=== PATIENT | female | born 1955 | race Caucasian/White ===

== ENCOUNTER 2020-10-09 08:21 | Outpatient (REF) | payer MEDICAID, SELFPAY ==
[2020-10-09 10:41] LABS: MANUAL DIFF FLAG SCAN; Mean Corpuscular Volume 65.4 fL (80-98); SCAN SMEAR FLAG 1
[2020-10-09 10:43] LABS: Basophils Absolute Auto 0.1 X10*3/uL (0.0-0.2); Basophils Percent Auto 0.7 % (0-2); Eosinophils Absolute Auto 0.4 X10*3/uL (0.0-0.4); Hematocrit 26.6 % (37-47); Imm Gran Abs Auto 0.03 X10*3/uL (0.00-0.03); Imm Gran Pct Auto 0.4 % (0.0-0.4); Lymphocytes Absolute Auto 1.7 X10*3/uL (1.2-4.9); Lymphocytes Percent Auto 25.1 % (20-40); Mean Corpuscular HGB Conc 24.8 g/dl (31.0-35.0); Mean Corpuscular Hemoglobin 16.2 pg (27.0-33.0); Monocytes Absolute Auto 0.7 X10*3/uL (0.1-1.2); Monocytes Percent Auto 9.6 % (2-11); Neutrophils Percent Auto 58.2 % (45-73); PLT CLUMP 1; Red Blood Count 4.07 X10*6/uL (4.20-5.50); Red Cell Distribution Width 21.5 % (11.0-16.0)
[2020-10-09 10:57] LABS: Alanine Aminotransferase 8 U/L (0-31); Albumin Level 3.3 g/dL (3.5-5.0); Alkaline Phosphatase 103 U/L (39-117); Anion Gap 10 (12-20); Aspartate Amino Transferase 12 U/L (5-31); Bilirubin Total 0.4 mg/dL (0.0-1.0); Blood Urea Nitrogen 15 mg/dL (9-16); Calcium 8.6 mg/dL (8.4-10.2); Carbon Dioxide 26 mmol/L (22-29); Chloride 109 mmol/L (96-108); Estimated Glomerular Filt Rate > 60; Glucose Random 113 mg/dL (60-115); Potassium 4.1 mmol/L (3.3-5.1); Sodium 141 mmol/L (135-145); Total Protein 5.5 g/dL (6.5-8.0)
[2020-10-09 11:01] LABS: Hemoglobin 6.6 g/dl (12.0-16.0); PLT ABN DIST 1
[2020-10-09 11:29] LABS: Platelet Count 348 X10*3/uL (160-400); White Blood Count 6.9 X10*3/uL (4.8-10.8)
[2020-10-09 11:30] LABS: SLIDE REVIEW VERIFIED
[2020-10-09 11:54] LABS: Folate 11.6 ng/mL (> or = 4.0); Vitamin B12 528 pg/mL (200-900)
[2020-10-09 13:54] LABS: Ferritin < 1 ng/mL (10-250)
== END 2020-10-09 08:22 | disposition home or self-care (01) ==
LOC: HO.LAB 08:21
PROVIDERS: PCP Internal Medicine; Visit Provider Internal Medicine
DX: D50.0 Iron deficiency anemia secondary to blood loss (chronic) (principal); J45.909 Unspecified asthma, uncomplicated; K22.0 Achalasia of cardia; R53.83 Other fatigue
CPT/HCPCS: 36415; 80053; 82607; 82728; 82746; 85025

== ENCOUNTER 2020-10-10 10:58 | Outpatient (REF) | payer MEDICAID, SELFPAY ==
[2020-10-10 17:07] LABS: Basophils Absolute Auto 0.1 X10*3/uL (0.0-0.2); Basophils Percent Auto 0.6 % (0-2); MANUAL DIFF FLAG SCAN; Mean Corpuscular Volume 72.3 fL (80-98); Neutrophils Percent Auto 62.2 % (45-73); SCAN SMEAR FLAG 1
[2020-10-10 17:09] LABS: Eosinophils Absolute Auto 0.3 X10*3/uL (0.0-0.4); Hematocrit 34.5 % (37-47); Hemoglobin 9.7 g/dl (12.0-16.0); Imm Gran Abs Auto 0.04 X10*3/uL (0.00-0.03); Imm Gran Pct Auto 0.5 % (0.0-0.4); Lymphocytes Absolute Auto 1.7 X10*3/uL (1.2-4.9); Lymphocytes Percent Auto 21.6 % (20-40); Mean Corpuscular HGB Conc 28.1 g/dl (31.0-35.0); Mean Corpuscular Hemoglobin 20.3 pg (27.0-33.0); Monocytes Absolute Auto 0.9 X10*3/uL (0.1-1.2); Monocytes Percent Auto 11.1 % (2-11); Neutrophils Absolute Auto 4.8 X10*3/uL (2.0-8.3); PLT CLUMP 1; Red Blood Count 4.77 X10*6/uL (4.20-5.50); Red Cell Distribution Width 27.4 % (11.0-16.0)
[2020-10-10 17:44] LABS: PLT ABN DIST 1; Platelet Count 302 X10*3/uL (160-400); White Blood Count 7.8 X10*3/uL (4.8-10.8)
[2020-10-10 17:49] LABS: SLIDE REVIEW VERIFIED
== END 2020-10-10 10:59 | disposition home or self-care (01) ==
LOC: HO.MDS 10:58
PROVIDERS: PCP Internal Medicine; Visit Provider Internal Medicine
DX: D50.0 Iron deficiency anemia secondary to blood loss (chronic) (principal)
CPT/HCPCS: 36415; 36430; 85025; 86850; 86900; 86901; 86923; P9016

== ENCOUNTER 2020-11-18 08:17 | Outpatient (REF) | payer MEDICAID, SELFPAY ==
[2020-11-18 09:15] LABS: MANUAL DIFF FLAG NO
[2020-11-18 09:23] LABS: Basophils Percent Auto 0.6 % (0-2); Eosinophils Absolute Auto 0.3 X10*3/uL (0.0-0.4); Eosinophils Percent Auto 4.9 % (0-4); Hematocrit 36.1 % (37-47); Hemoglobin 10.6 g/dl (12.0-16.0); Imm Gran Abs Auto 0.01 X10*3/uL (0.00-0.03); Imm Gran Pct Auto 0.2 % (0.0-0.4); Lymphocytes Absolute Auto 1.5 X10*3/uL (1.2-4.9); Lymphocytes Percent Auto 23.1 % (20-40); Mean Corpuscular HGB Conc 29.4 g/dl (31.0-35.0); Mean Corpuscular Hemoglobin 22.7 pg (27.0-33.0); Mean Corpuscular Volume 77.5 fL (80-98); Monocytes Absolute Auto 0.8 X10*3/uL (0.1-1.2); Monocytes Percent Auto 11.4 % (2-11); Neutrophils Absolute Auto 3.9 X10*3/uL (2.0-8.3); Neutrophils Percent Auto 59.8 % (45-73); Platelet Count 261 X10*3/uL (160-400); Red Blood Count 4.66 X10*6/uL (4.20-5.50); Red Cell Distribution Width 28.3 % (11.0-16.0); White Blood Count 6.6 X10*3/uL (4.8-10.8)
== END 2020-11-18 08:18 | disposition home or self-care (01) ==
LOC: HO.LAB 08:17
PROVIDERS: PCP Internal Medicine; Visit Provider Internal Medicine
DX: K22.10 Ulcer of esophagus without bleeding (principal); D50.0 Iron deficiency anemia secondary to blood loss (chronic)
CPT/HCPCS: 36415; 85025

== ENCOUNTER 2020-11-20 07:07 | Day surgery (SDC) | payer MEDICAID, SELFPAY ==
--- NOTE | 2020-11-19 10:34 | P.CONAN_ITS ---
Documented by User: Glendy Rodriguez 11/19/20 10:35 HPI - Anesthesia Eval Consult details Narrative: 65yo F for Upper Endoscopy [facility] Past Medical History Medical History Achalasia Anemia Asthma History of blood transfusion Hx of renal calculi Surgical History Surgical History History of esophageal surgery History of esophagogastroduodenoscopy (EGD) History of hand surgery Hx of cholecystectomy Hx of colonoscopy Social History Social History Patient Tobacco Use Status: Never used Tobacco Use of substances other than those prescribed or required for medical reasons: No Are you DNR?: No Advance Directives: No Advance Directives Information Provided: Yes Recently lost weight without trying: No Nutrition Risks: No Nutritional Risk Patient : No Meds Allergies Allergy/AdvReac Type Severity Reaction Status Date / Time sunflower seed Allergy Severe ANAPHYLAXIS Verified 11/20/20 08:36 [SUNFLOWER SEED] Home Medications Medication Instructions Recorded Confirmed Last Taken Type albuterol sulfate 2 puff INHALATION QID PRN 11/13/20 11/13/20 Unknown History albuterol sulfate [ProAir HFA] 2 puff INHALATION QID 11/13/20 11/13/20 Unknown History ferrous fumarate [Ferrocite] 1 tab PO DAILY 11/13/20 11/13/20 Unknown History fluticasone propionate [Flovent 1 puff INHALATION BID 11/13/20 11/13/20 Unknown History HFA] ibuprofen 1 tab PO Q8H 11/13/20 11/13/20 Unknown History omeprazole 1 cap PO BID 11/13/20 11/13/20 Unknown History sucralfate [Carafate] 2 PO DAILY 11/13/20 Unknown History Exam Exam Date and Time: November 19, 2020 1034 Pertinent Lab Results Pertinent Lab Results: Laboratory Tests 10/09/20 11/18/20 08:30 08:47 WBC 6.6 Hgb 10.6 L Hct 36.1 L Plt Count 261 Sodium 141 Potassium 4.1 Chloride 109 H Carbon Dioxide 26 BUN 15 Creatinine 0.64 Assessment and Plan Assessment Anesthesia Assessment: Chart Reviewed Documented by User: Shanna Dao 11/20/20 08:40 PMF Past Medical History Medical History Achalasia Anemia Asthma History of blood transfusion Hx of renal calculi Surgical History Surgical History History of esophageal surgery History of esophagogastroduodenoscopy (EGD) History of hand surgery Hx of cholecystectomy Hx of colonoscopy Social History Social History Patient Tobacco Use Status: Never used Tobacco Use of substances other than those prescribed or required for medical reasons: No Are you DNR?: No Advance Directives: No Advance Directives Information Provided: Yes Recently lost weight without trying: No Nutrition Risks: No Nutritional Risk Patient : No Meds Allergies Allergy/AdvReac Type Severity Reaction Status Date / Time sunflower seed Allergy Severe ANAPHYLAXIS Verified 11/20/20 08:36 [SUNFLOWER SEED] Home Medications Medication Instructions Recorded Confirmed Last Taken Type albuterol sulfate 2 puff INHALATION QID PRN 11/13/20 11/13/20 Unknown History albuterol sulfate [ProAir HFA] 2 puff INHALATION QID 11/13/20 11/13/20 Unknown History ferrous fumarate [Ferrocite] 1 tab PO DAILY 11/13/20 11/13/20 Unknown History fluticasone propionate [Flovent 1 puff INHALATION BID 11/13/20 11/13/20 Unknown History HFA] ibuprofen 1 tab PO Q8H 11/13/20 11/13/20 Unknown History omeprazole 1 cap PO BID 11/13/20 11/13/20 Unknown History sucralfate [Carafate] 2 PO DAILY 11/13/20 Unknown History Exam Airway Mallampati Class: II (Missing top central teeth) TM Dist: >3cm Neck ROM: Full Loose/Missing/Broken Teeth: Yes and Upper (B = Broken; M = Missing; L = Loose; C = Cap) Heart: RRR Lungs: CTA Assessment and Plan Assessment Anesthesia Assessment: Anesthesia Plan Discussed and Chart Reviewed Final Anesthetic Review NPO: Yes ASA Class: II Final Preanesthetic Review: Meds/Allgs Chart Reviewed, Consent Obtained/Reviewed and Anes Risks/Benef Reviewed Patient Risk: Low Procedure Risk: Intermediate Anesthetic Plan Anesthetic Plan: MAC: Disposition: Standard PACU
[2020-11-20 07:27] VITALS: BMI 22.6
[2020-11-20 07:48] VITALS: BP 140/68; PULSE 53; RESP 16; TEMP 36.4; O2SAT 96
--- NOTE | 2020-11-20 08:17 | ECG_ITS ---
Test Reason : ARRHYTHMIA Blood Pressure : / mmHG Vent. Rate : 051 BPM Atrial Rate : 051 BPM P-R Int : 180 ms QRS Dur : 086 ms QT Int : 466 ms P-R-T Axes : 060 -03 036 degrees QTc Int : 429 ms Sinus bradycardia with occasional Premature ventricular complexes Otherwise normal ECG No previous ECGs available Referred By: Shanna Dao Electronically Signed By:JULITA KUO MD
--- NOTE | 2020-11-20 08:35 | PC.NURSE ---
EKG PERFORMED. ASYMPTOMATIC. ANTI BY BEDSIDE EVALUTING PATIENT. OK TO PROCEED WITH PROCEDURE. COLOR WNL. NONDIAPHORECTIC. DENIES CP. EKG PERFORMED FOR A BASELINE.
[2020-11-20] MEDS: Lactated Ringers 1,000 ML 100 ML IVCONT (08:37)
[2020-11-20 09:25] VITALS: BP 134/73; PULSE 58; RESP 18; TEMP 36.1; O2SAT 100
--- NOTE | 2020-11-20 09:33 | P.BOP_ITS ---
Brief Operative Note Date of Service: 11/20/20 Pre-op diagnosis: Achalasia Post-op diagnosis: other (Same, Esophageal stricture) Procedure: EGD with Balloon dilation from 12 to 13.5 to 15mm Surgeon: Adis Chan Anesthesia: MAC Was an Anesthesia Attending used for this Procedure?: No Estimated blood loss (mL): 5.0 Pathology: none sent Condition: stable Disposition: PACU
[2020-11-20 09:40] VITALS: BP 141/78; PULSE 60; RESP 18; O2SAT 98
[2020-11-20 10:06] VITALS: BP 163/74; PULSE 51; RESP 16; O2SAT 98
[2020-11-20 10:41] VITALS: BP 154/71; PULSE 54; RESP 18; O2SAT 99
--- NOTE | 2020-11-20 11:34 | OP_ITS ---
SURGEON: Adis Chan MD INDICATIONS: The patient presents for evaluation of underlying history of achalasia, dysphagia, and anemia. Full consent has been obtained from her for this, including risks of bleeding and perforation. PREOPERATIVE DIAGNOSIS: POSTOPERATIVE DIAGNOSIS: PROCEDURE PERFORMED: Esophagogastroduodenoscopy with balloon dilation. ESTIMATED BLOOD LOSS: COMPLICATIONS: ANESTHESIA: Monitored anesthesia care. ASSISTANTS: SPECIMENS: PREOPERATIVE DIAGNOSES: Achalasia, dysphagia, anemia. POSTOPERATIVE DIAGNOSES: Achalasia, dysphagia, anemia, erosive esophagitis, esophageal stricture, and retention of liquid and some food in the esophagus and proximal stomach. DESCRIPTION OF PROCEDURE: The patient was placed in the left lateral decubitus position. The Olympus video gastroscope was passed in the posterior oropharynx and upper esophagus. The scope was passed to a level of approximately 38 to 39 cm. The entire esophagus was quite dilated with no peristalsis and filled with some thick fluid. There were also some small pieces of solid food. The mucosa was quite friable throughout the esophagus. There was no sign of any specific lesions. The majority of liquid was irrigated and suctioned out of the esophagus as best as possible. The lumen of the esophagogastric junction was very difficult to find. I was finally able to find the lumen into the stomach by using a dilating balloon tip. I was then able to pop the scope into the stomach. The EG junction was quite friable, but there was no mass. I did advance to the pylorus. The duodenum was cannulated to the descending portion. The duodenum including the bulb appeared normal without mass or ulceration. The scope was withdrawn back into the stomach. The gastric antrum and body appeared normal with good peristalsis. The scope was retroflexed visualizing the proximal stomach carefully, which appeared normal, but the visualization was limited due to some retained gastric contents in the very proximal stomach. The scope was then straightened. With insufflation of air, I was able to visualize the gastroesophageal junction and there was no sign of mass, but there was some evidence of a fibrotic stricture with inflammatory changes and friability. I did use a [employer] incremental balloon to dilate the EG junction from 12 mm to 13.5 mm to 15 mm at the recommended pressures for between 30 and 60 seconds each. Post-dilation, it was definitely easier to enter the stomach. There was clear disruption of the stricture. Again, there was no sign of any mass. The scope was withdrawn through the remainder of the esophagus. Again, the esophagus was quite dilated with no peristalsis and some retained liquid, which was suctioned away as best as possible. There were no specific esophageal lesions, but the entire mucosa was quite friable. The scope was then withdrawn from the patient. She tolerated the procedure well and was returned to the recovery area in stable condition. IMPRESSION: 1. Achalasia with dilated and aperistaltic esophagus. 2. Esophagitis. 3. Esophageal stricture, status post balloon dilation. PLAN: The patient will start on a regimen of omeprazole 40 mg b.i.d. and Carafate suspension 1 Gm q.i.d. I did advise her to use these medications regularly and on a compliant basis. She has been instructed to stay on her iron as well. She is being scheduled to see a thoracic surgeon, Dr. Mendieta in [place], for further evaluation. I did advise the patient to be sure to remain compliant with her medications and appointments. A recent CBC did show an improved Hemoglobin of approximately 10. This has all been discussed with the patient and her son in detail today. MD ROXANNE Blake/JANE / [id number] MTDD
== END 2020-11-20 11:21 | disposition home or self-care (01) ==
PROVIDERS: PCP Internal Medicine; Visit Provider Internal Medicine
PROC: 0DJ08ZZ Inspection of Upper Intestinal Tract, Via Natural or Artificial Opening Endoscopic (ICD-10-PCS; CPT 43235; principal; 2020-11-20 08:20)
DX: K22.0 Achalasia of cardia (principal); K22.2 Esophageal obstruction; K20.90 Esophagitis, unspecified without bleeding; D64.9 Anemia, unspecified; J45.909 Unspecified asthma, uncomplicated; Z79.899 Other long term (current) drug therapy
CPT/HCPCS: 43249; 93005; C1726

== ENCOUNTER 2021-02-12 10:10 | Outpatient (REF) | payer MEDICAID, SELFPAY ==
[2021-02-12 10:55] LABS: MANUAL DIFF FLAG NO
[2021-02-12 11:00] LABS: Basophils Percent Auto 0.7 % (0-2); Eosinophils Absolute Auto 0.3 X10*3/uL (0.0-0.4); Eosinophils Percent Auto 5.7 % (0-4); Hematocrit 34.9 % (37-47); Hemoglobin 10.2 g/dl (12.0-16.0); Imm Gran Abs Auto 0.01 X10*3/uL (0.00-0.03); Imm Gran Pct Auto 0.2 % (0.0-0.4); Lymphocytes Absolute Auto 1.2 X10*3/uL (1.2-4.9); Lymphocytes Percent Auto 21.9 % (20-40); Mean Corpuscular HGB Conc 29.2 g/dl (31.0-35.0); Mean Corpuscular Hemoglobin 23.4 pg (27.0-33.0); Mean Platelet Volume 10.8 fL (9.4-12.3); Monocytes Absolute Auto 0.7 X10*3/uL (0.1-1.2); Monocytes Percent Auto 12.6 % (2-11); Neutrophils Absolute Auto 3.3 X10*3/uL (2.0-8.3); Neutrophils Percent Auto 58.9 % (45-73); Platelet Count 291 X10*3/uL (160-400); Red Blood Count 4.36 X10*6/uL (4.20-5.50); Red Cell Distribution Width 16.5 % (11.0-16.0); White Blood Count 5.7 X10*3/uL (4.8-10.8)
[2021-02-12 11:33] LABS: Alanine Aminotransferase 10 U/L (0-31); Albumin Level 3.3 g/dL (3.5-5.0); Alkaline Phosphatase 122 U/L (39-117); Anion Gap 8 (12-20); Aspartate Amino Transferase 14 U/L (5-31); Bilirubin Total 0.3 mg/dL (0.0-1.0); Blood Urea Nitrogen 16 mg/dL (9-16); Calcium 9.4 mg/dL (8.4-10.2); Carbon Dioxide 30 mmol/L (22-29); Chloride 107 mmol/L (96-108); Cholesterol 115 mg/dL; Estimated Glomerular Filt Rate > 60; Glucose Random 95 mg/dL (60-115); HDL Cholesterol 41 mg/dL; LDL Cholesterol Calculated 64 mg/dl; Potassium 4.2 mmol/L (3.3-5.1); Sodium 141 mmol/L (135-145); Total Protein 5.4 g/dL (6.5-8.0); Triglycerides 53 mg/dL
== END 2021-02-12 10:11 | disposition home or self-care (01) ==
LOC: HO.LAB 10:10
PROVIDERS: PCP Internal Medicine; Visit Provider Internal Medicine
DX: D50.8 Other iron deficiency anemias (principal); K22.0 Achalasia of cardia; R11.2 Nausea with vomiting, unspecified
CPT/HCPCS: 36415; 80053; 80061; 85025

== ENCOUNTER 2021-07-27 15:12 | Emergency (ER) | payer MEDICAID, SELFPAY ==
[2021-07-27 15:18] VITALS: BP 159/75; PULSE 89; RESP 20; TEMP 36.3; O2SAT 98; BMI 21.7
--- NOTE | 2021-07-27 17:06 | ED_ITS ---
HPI - General Adult General Chief complaint: Back Pain/Injury Stated complaint: back pain/shoulder pain/arm pain Time Seen by Provider: 07/27/21 15:35 Source: patient Mode of arrival: ambulatory Limitations: no limitations History of Present Illness HPI narrative: Pt with right shoulder pain x 1 week, now radiating to right neck and upper back. worse since last night. no known injury. no other symptoms Related Data Home Medications Medication Instructions Recorded Confirmed albuterol sulfate 90 mcg/actuation 2 puff INHALATION QID PRN 11/13/20 11/13/20 aerosol inhaler albuterol sulfate 90 mcg/actuation 2 puff INHALATION QID 11/13/20 11/13/20 aerosol inhaler (ProAir HFA) ferrous fumarate 324 mg (106 mg 1 tab PO DAILY 11/13/20 11/13/20 iron) tablet (Ferrocite) fluticasone propionate 220 1 puff INHALATION BID 11/13/20 11/13/20 mcg/actuation HFA aerosol inhaler (Flovent HFA) ibuprofen 600 mg tablet 1 tab PO Q8H 11/13/20 11/13/20 omeprazole 20 mg capsule,delayed 1 cap PO BID 11/13/20 11/13/20 release sucralfate 100 mg/mL oral 2 PO DAILY 11/13/20 suspension (Carafate) Previous Rx's Medication Instructions Recorded cyclobenzaprine 10 mg tablet 10 mg PO BEDTIME PRN #14 tab 07/27/21 Allergies Allergy/AdvReac Type Severity Reaction Status Date / Time sunflower seed Allergy Severe ANAPHYLAXIS Verified 11/20/20 08:36 [SUNFLOWER SEED] Review of Systems Review of Systems: Constitutional : No trauma, No Weight loss, No Fever, No Chills, ENT/Mouth : No Hearing loss, No Ear Pain, No Nasal Congestion, No Sinus Pain, No Hoarseness, No sore throat, No Rhinorrhea, No Swallowing Difficulty Cardiovascular : No Chest Pain, No SOB Respiratory : No Cough, No Dyspnea Gastrointestinal : No Nausea, No Vomiting, No Diarrhea, No abdominal Pain,? Musculoskeletal : right sided neck pain and right upper back pain, right shoulder pain, No joint stiffness, No joint swelling Skin : No Skin Lesions, No rash or signs of infection Neuro : No Weakness, No radiation, No Numbness, No Paresthesias, No headache, Denies history of IV drug usage. Psych : No SI/HI/thoughts of self injury Yes all other systems are reviewed and are negative [facility] Past Medical History Attestation statement: The following information was validated with the patient. Medical History Achalasia Anemia Asthma History of blood transfusion Hx of renal calculi Surgical History History of esophageal surgery History of esophagogastroduodenoscopy (EGD) History of hand surgery Hx of cholecystectomy Hx of colonoscopy Social History Social History Patient Tobacco Use Status: Never used Tobacco Advance Directives: No Advance Directives Information Provided: No Patient : No Physical Exam ED Vital Signs: Vital Signs - 24 hr 07/27/21 15:18 Temperature 97.4 F Pulse Rate 89 Respiratory Rate 20 Blood Pressure 159/75 H Pulse Oximetry 98 BMI result Body Mass Index 21.7 vital signs have been reviewed as normal and appeared to be correct.? Blood pressure 159/75.? Heart rate normal.? Respiration rate normal.? Temperature normal.? Oxygen saturation normal. Appearance: Alert. Oriented X3. No acute distress.? Head: Normal external exam. Atraumatic Eyes: EOMI. Conjunctiva and sclera normal. Eyelids normal.?? Neck: mild right paravertebral muscle tenderness, no midline tenderness, Neck supple. Normal ROM. No adenopathy. No meningeal signs. CVS: Normal heart rate and rhythm. Respiratory: No respiratory distress. Painless inspiration. Abdomen: Soft and nontender. No visible injury noted. Back:? tenderness right upper trapezius, No CVA tenderness. Full range of motion noted. Skin: Skin warm and dry.? Normal skin color.? Normal skin turgor. No rashes/lesions/lacerations noted. 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 No discoloration.?Extremities exhibit normal range of motion.? Extremities nontender.? Neuro: Oriented X 3.? No motor deficit.? No sensory deficit.? Reflexes normal.? Patient has a normal steady gait. Discharge Plan Discharge Clinical Impression: Acute torticollis Patient Disposition: Home, Self-Care Additional Instructions: Take muscle relaxer twice a day x 2 days and then once a day as needed. Take ibuprofen or advil once a day as tolerated. warm heat to afftected area. Follow up with PCP if no iprovment in 2 days. return if worse ' Your blood pressure was elevated today please follow up with your primary care provider for recheck. Prescriptions: New cyclobenzaprine 10 mg tablet 10 mg PO BEDTIME PRN (Reason: muscle spasm) Qty: 14 0RF No Action sucralfate [Carafate] 100 mg/mL suspension 2 PO DAILY 0RF omeprazole 20 mg capsule,delayed release(DR/EC) 1 cap PO BID 0RF Flovent HFA 220 mcg/actuation HFA aerosol inhaler 1 puff inhalation BID 0RF ibuprofen 600 mg tablet 1 tab PO Q8H 0RF albuterol sulfate [ProAir HFA] 90 mcg/actuation HFA aerosol inhaler 2 puff inhalation QID 0RF albuterol sulfate 90 mcg/actuation HFA aerosol inhaler 2 puff inhalation QID PRN (Reason: Shortness Of Breath Or Wheezing) 0RF ferrous fumarate [Ferrocite] 324 mg (106 mg iron) tablet 1 tab PO DAILY 0RF Interventions: ED Discharge Assessment Last Done: 07/27/21 17:26 Discharge Date/Time: 07/27/21 17:27
[2021-07-27] MEDS: Ketorolac Tromethamine 15 MG/ML VIAL IM (17:19)
== END 2021-07-27 17:27 | disposition home or self-care (01) ==
PROVIDERS: Emergency Provider Emergency Medicine; PCP Internal Medicine
DX: M43.6 Torticollis (principal); M54.50 Low back pain, unspecified; M54.2 Cervicalgia; M54.6 Pain in thoracic spine; Z79.899 Other long term (current) drug therapy
CPT/HCPCS: 96372; 99283; 99284; J1885

== ENCOUNTER 2021-10-21 09:00 | Outpatient (RCR) | payer MEDICAID, SELFPAY | END 2021-10-21 12:18 | disposition home or self-care (01) | LOC: HO.PTCHIC 09:00 | PROVIDERS: PCP Internal Medicine; Visit Provider Internal Medicine | DX: M54.12 Radiculopathy, cervical region (principal); M25.511 Pain in right shoulder | CPT/HCPCS: 97110; 97140; 97161 ==

== ENCOUNTER 2021-12-12 09:50 | Outpatient (REF) | payer MEDICAID, SELFPAY ==
--- NOTE | ~2021-12-12 | MM_ITS ---
EXAMINATION: MM DIAGNOSTIC DIGITAL BREAST TOMOSYNTHESIS, BILATERAL Targeted left breast ultrasound CLINICAL INFORMATION: Left breast palpable lump The lifetime risk of breast cancer based on the Tyrer-Cuzick Model is 5.9%. COMPARISON: Mammography: October 15, 2011 and studies dating back to July 21, 2010 TECHNIQUE: Digital breast tomosynthesis is performed in both the craniocaudal and mediolateral oblique views along with computer-aided detection (CAD). Synthesized 2D images are generated from the tomosynthesis. Additional left exaggerated craniocaudal view performed. FINDINGS: There are scattered areas of fibroglandular density (ACR BI-RADS breast composition Category b). There is a stable appearance of the right breast. Within the left axilla there is an irregularly marginated 1.6 cm mass with some architectural distortion suspicious for malignancy. Targeted left breast ultrasound at the 12:00 position approximately 12 cm from nipple demonstrated a hypoechoic irregularly marginated mass with internal vascularity and mild distal sound shadowing. No abnormal left axillary lymph nodes were appreciated. Results are discussed with the patient at time of visit. MM/MM tomosynthesis diagnostic BI IMPRESSION: Suspicious left breast mass for which ultrasound-guided core biopsy is recommended. ASSESSMENT: BI-RADS 4: Suspicious (subcategory 4C: High suspicion for malignancy) RECOMMENDATION: Ultrasound guided biopsy. This patient's information was entered into a reminder system with a target due date for their next mammogram. Referring physician's office was not open. Breast Center coordinator will call referring provider's office Wednesday morning.
== END 2021-12-12 09:51 | disposition home or self-care (01) ==
LOC: HO.MAMMO 09:50
PROVIDERS: PCP Internal Medicine; Visit Provider Internal Medicine
DX: N63.25 Unspecified lump in the left breast, overlapping quadrants (principal)
CPT/HCPCS: 76642; 77062; 77066

== ENCOUNTER 2021-12-17 09:31 | Outpatient (REF) | payer MEDICAID, SELFPAY ==
--- NOTE | ~2021-12-17 | US_ITS ---
PROCEDURE: US GUIDED BREAST BIOPSY, LEFT CLINICAL INFORMATION: Solid left breast mass 12 o'clock position suspicious for malignancy. COMPARISON: 12/12/2021 and 10/15/2011. PROCEDURAL DETAILS: The details of the procedure, as well as the risks, benefits, and alternatives to the procedure were explained to the patient in detail and all of her questions were answered, after which written informed consent was obtained. Site and side were confirmed. Prior to the procedure, sonography revealed a hypoechoic rounded mass with internal vascularity and somewhat irregular borders.. A time-out was performed, the lesion intended for biopsy was targeted, and the skin of the left breast was then prepped and draped in the usual sterile fashion. Using sonographic guidance, sterile technique, and 1% lidocaine without epinephrine for local anesthesia, multiple automated core biopsies were obtained through the targeted area with a 14G spring loaded Achieve core biopsy device. There was real-time confirmation of appropriate needle passage. Sampling was documented. At the completion of tissue sampling, a single open coil-shaped metallic clip was deposited at the biopsy site. There was no evidence of immediate complication. SPECIMEN: An appropriate sample was obtained. DIGITAL POST-PROCEDURE MAMMOGRAPHY: Breast density: The tissue contains scattered areas of fibroglandular density. BI-RADS version 5, category B. There are no new mammographic findings demonstrated. The postprocedure 2-view direct digital mammogram reveals satisfactory positioning of the biopsy clip. The mass is not identified on craniocaudal or exaggerated craniocaudal views due to its very deep position in the axilla. There was direct visualization of ultrasound of the clip being deployed within the mass. The patient tolerated the procedure well and, after assuring adequate hemostasis, was discharged in good condition after reviewing postbiopsy breast care instructions. Final pathology results are pending. US/US breast ndl core biopsy LT IMPRESSION: 1. No immediate complication from ultrasound-guided percutaneous biopsy left breast. 2. Ultrasound was used to localize and guide marker clip placement. 3. The 2-view direct digital postprocedure mammogram reveals satisfactory positioning of the biopsy clip. 4. Final pathology results are pending. A separate report with final recommendations will be issued once these results are made available.
--- NOTE | ~2021-12-17 | MM_ITS ---
PROCEDURE: US GUIDED BREAST BIOPSY, LEFT MM DIAGNOSTIC, LEFT CLINICAL INFORMATION: Solid left breast mass 12 o'clock position suspicious for malignancy. COMPARISON: 12/12/2021 and 10/15/2011, PROCEDURAL DETAILS: The details of the procedure, as well as the risks, benefits, and alternatives to the procedure were explained to the patient in detail and all of her questions were answered, after which written informed consent was obtained. Site and side were confirmed. Prior to the procedure, sonography revealed a hypoechoic rounded mass with internal vascularity and somewhat irregular borders. A time-out was performed, the lesion intended for biopsy was targeted, and the skin of the left breast was then prepped and draped in the usual sterile fashion. Using sonographic guidance, sterile technique, and 1% lidocaine without epinephrine for local anesthesia, multiple automated core biopsies were obtained through the targeted area with a 14G spring loaded Achieve core biopsy device. There was real-time confirmation of appropriate needle passage. Sampling was documented. At the completion of tissue sampling, a single open coil-shaped metallic clip was deposited at the biopsy site. There was no evidence of immediate complication. SPECIMEN: An appropriate sample was obtained. DIGITAL POST-PROCEDURE MAMMOGRAPHY: Breast density: The tissue contains scattered areas of fibroglandular density. BI-RADS version 5, category B. There are no new mammographic findings demonstrated. The postprocedure 2-view direct digital mammogram reveals satisfactory positioning of the biopsy clip. The mass is not identified on craniocaudal or exaggerated craniocaudal views due to its very deep position in the axilla. There was direct visualization on ultrasound of the clip being deployed within the mass. The patient tolerated the procedure well and, after assuring adequate hemostasis, was discharged in good condition after reviewing postbiopsy breast care instructions. Final pathology results are pending. MM/MM diagnostic mammo unilat LT IMPRESSION: 1. No immediate complication from ultrasound-guided percutaneous biopsy left breast. 2. Ultrasound was used to localize and guide marker clip placement. 3. The 2-view direct digital postprocedure mammogram reveals satisfactory positioning of the biopsy clip. 4. Final pathology results are pending. A separate report with final recommendations will be issued once these results are made available.
[2021-12-17] MEDS: Lidocaine HCl 1 % 20 ML VIAL 9 ML SUBCUT (11:04)
== END 2021-12-17 09:32 | disposition home or self-care (01) ==
LOC: HO.MAMMO 09:31
PROVIDERS: PCP Internal Medicine; Visit Provider Surgery
DX: N63.25 Unspecified lump in the left breast, overlapping quadrants (principal)
CPT/HCPCS: 19083; 36415; 77062; 77065; 88305; 88342; 88360; 88374; 99202; A4648

== ENCOUNTER → 2021-12-26 14:20 | Outpatient (BNVA) | payer MEDICAID, SELFPAY | PROVIDERS: PCP Internal Medicine; Visit Provider Surgery | DX: N63.20 Unspecified lump in the left breast, unspecified quadrant (principal); C50.919 Malignant neoplasm of unspecified site of unspecified female breast | CPT/HCPCS: 99212 ==

== ENCOUNTER 2021-12-30 12:31 | Outpatient (REF) | payer MEDICAID, SELFPAY ==
[2021-12-30 12:56] LABS: MANUAL DIFF FLAG NO
[2021-12-30 13:32] LABS: Basophils Percent Auto 0.5 % (0-2); Eosinophils Absolute Auto 0.2 X10*3/uL (0.0-0.4); Eosinophils Percent Auto 2.2 % (0-4); Hematocrit 32.4 % (37.0-47.0); Hemoglobin 8.7 g/dl (12.0-16.0); Imm Gran Abs Auto 0.02 X10*3/uL (0.00-0.03); Imm Gran Pct Auto 0.2 % (0.0-0.4); Lymphocytes Absolute Auto 1.5 X10*3/uL (1.2-4.9); Lymphocytes Percent Auto 18.2 % (20-40); Mean Corpuscular HGB Conc 26.9 g/dl (31.0-35.0); Mean Corpuscular Hemoglobin 18.1 pg (27.0-33.0); Mean Corpuscular Volume 67.5 fL (80.0-98.0); Monocytes Absolute Auto 0.9 X10*3/uL (0.1-1.2); Monocytes Percent Auto 11.1 % (2-11); Neutrophils Absolute Auto 5.6 x10*3/uL (2.0-8.3); Neutrophils Percent Auto 67.8 % (45-73); Platelet Count 304 X10*3/uL (160-400); Red Cell Distribution Width 21.6 % (11.0-16.0); White Blood Count 8.3 X10*3/uL (4.8-10.8)
[2021-12-30 13:57] LABS: Alanine Aminotransferase 6 U/L (0-31); Albumin Level 3.4 g/dL (3.5-5.0); Alkaline Phosphatase 126 U/L (39-117); Anion Gap 13 (12-20); Aspartate Amino Transferase 14 U/L (5-31); Bilirubin Total 0.5 mg/dL (0.0-1.0); Blood Urea Nitrogen 19 mg/dL (9-16); Calcium 8.8 mg/dL (8.4-10.2); Carbon Dioxide 26 mmol/L (22-29); Chloride 105 mmol/L (96-108); Estimated Glomerular Filt Rate > 60; Glucose Random 109 mg/dL (60-115); Potassium 4.2 mmol/L (3.3-5.1); Sodium 140 mmol/L (135-145); Total Protein 5.7 g/dL (6.5-8.0)
[2021-12-30 14:22] LABS: Thyroid Stimulating Hormone 0.62 uIU/mL (0.32-4.0)
[2021-12-30 14:34] LABS: Folate 12.7 ng/mL (> or = 4.0); Vitamin B12 584 pg/mL (200-900)
== END 2021-12-30 12:32 | disposition home or self-care (01) ==
LOC: HO.LAB 12:31
PROVIDERS: PCP Internal Medicine; Visit Provider Internal Medicine
DX: C50.919 Malignant neoplasm of unspecified site of unspecified female breast (principal); D50.8 Other iron deficiency anemias; K22.0 Achalasia of cardia
CPT/HCPCS: 36415; 80053; 82607; 82746; 84443; 85025

== ENCOUNTER 2022-10-23 10:00 | Outpatient (RCR) | payer MEDICAID, MEDICARE, SELFPAY ==
--- NOTE | 2022-07-02 11:54 | MHC.PT.EP ---
[facility] [place] [facility] [place] [facility] [place] Office [address] Jonas Carmen [address] [phone] F: [phone] F: [phone] F: [phone] F: [phone] Physical Therapy Plan of Care Date of Evaluation: Date of Surgery: March 18 2022 Diagnosis: Pain in L arm Assessment: Patient is a 66 year old R handed female who presents with s/s consistent with L shoulder pain. She is not working. She currently is waiting to have radiation but needs more shoulder ROM in order to move forward. Patient past medical history includes breast cancer and anemia. Current impairments include pain, posture, ROM, strength, activity tolerance and functional mobility. Functional limitations include decreased ability to reach, lift, carry, sleep, and hold arm above head. Patient is motivated with good rehab potential. Skilled PT will address impairments and functional limitations in order to achieve goals. Frequency and Duration: The patient will be seen 2x/week for 6 weeks Short Term Goals: I with HEP - 2 weeks AAROM flexion and scaption to 120 - 3 weeks Strength ER/IR/abd to 4-/5 - 3 weeks Intermediate Goals: Able to lay supine with arm up overhead to 10 minutes - 5 weeks AROM flexion and scaption to 130 - 5 weeks SPADI 60/130 - 6 weeks Strength 4/5 grossly - 6 weeks Pain with ADLs 3/10 or better - 6 weeks Treatment Plan: Modalities to reduce pain, spasms and effusion. Manual therapy to restore motion and function. Therapeutic exercise to improve strength and flexibility. Neuromuscular re-education for posture and balance. Therapeutic activities to return to functional activities of daily living. Electronically signed by: Ash Norton, PT Please sign and return to therapist. Thank you for your referral.
== END 2022-11-06 09:09 | disposition home or self-care (01) ==
LOC: HO.PTCHIC 10:00
PROVIDERS: PCP Internal Medicine; Visit Provider Internal Medicine
DX: M79.602 Pain in left arm (principal)
CPT/HCPCS: 97110; 97112; 97140; 97162; 97530

== ENCOUNTER 2023-02-09 09:03 | Outpatient (REF) | payer MEDICARE, MEDICAID, SELFPAY ==
[2023-02-09 09:20] LABS: MANUAL DIFF FLAG NO
[2023-02-09 10:09] LABS: Basophils Percent Auto 0.5 % (0-2); Eosinophils Absolute Auto 0.3 X10*3/uL (0.0-0.4); Eosinophils Percent Auto 3.7 % (0-4); Hematocrit 35.8 % (37.0-47.0); Hemoglobin 10.1 g/dl (12.0-16.0); Imm Gran Abs Auto 0.02 X10*3/uL (0.00-0.03); Imm Gran Pct Auto 0.2 % (0.0-0.4); Lymphocytes Percent Auto 12.9 % (20-40); Mean Corpuscular HGB Conc 28.2 g/dl (31.0-35.0); Mean Corpuscular Hemoglobin 21.2 pg (27.0-33.0); Mean Corpuscular Volume 75.1 fL (80.0-98.0); Mean Platelet Volume 10.6 fL (9.4-12.3); Monocytes Absolute Auto 0.8 X10*3/uL (0.1-1.2); Monocytes Percent Auto 9.9 % (2-11); Neutrophils Absolute Auto 5.9 x10*3/uL (2.0-8.3); Neutrophils Percent Auto 72.8 % (45-73); Platelet Count 268 X10*3/uL (160-400); Red Blood Count 4.77 X10*6/uL (4.20-5.50); White Blood Count 8.1 X10*3/uL (4.8-10.8)
[2023-02-09 11:12] LABS: Alanine Aminotransferase 7 U/L (0-31); Albumin Level 3.1 g/dL (3.5-5.0); Alkaline Phosphatase 130 U/L (39-117); Anion Gap 11 (12-20); Aspartate Amino Transferase 18 U/L (5-31); Bilirubin Total 0.4 mg/dL (0.0-1.0); Blood Urea Nitrogen 16 mg/dL (9-16); Calcium 9.2 mg/dL (8.4-10.2); Carbon Dioxide 27 mmol/L (22-29); Chloride 107 mmol/L (96-108); Cholesterol 105 mg/dL (<200); Estimated Glomerular Filt Rate > 60; Glucose Random 85 mg/dL (60-115); HDL Cholesterol 39 mg/dL (>40); LDL Cholesterol Calculated 57 mg/dL (<100); Potassium 4.2 mmol/L (3.3-5.1); Sodium 141 mmol/L (135-145); Total Protein 5.7 g/dL (6.5-8.0); Triglycerides 48 mg/dL (<150)
[2023-02-09 11:31] LABS: Ferritin 9 ng/mL (10-250)
[2023-02-09 11:37] LABS: Vitamin B12 744 pg/mL (200-900)
== END 2023-02-09 09:04 | disposition home or self-care (01) ==
LOC: HO.LAB 09:03
PROVIDERS: PCP Internal Medicine; Visit Provider Internal Medicine
DX: Z00.01 Encounter for general adult medical examination with abnormal findings (principal); C50.919 Malignant neoplasm of unspecified site of unspecified female breast; H61.23 Impacted cerumen, bilateral; N30.00 Acute cystitis without hematuria
CPT/HCPCS: 36415; 80053; 80061; 82607; 82728; 85025

== ENCOUNTER 2024-03-03 12:23 | Outpatient (REF) | payer OTHER, SELFPAY ==
[2024-03-03 12:38] LABS: MANUAL DIFF FLAG NO
[2024-03-03 13:41] LABS: Basophils Percent Auto 0.8 % (0-2); Eosinophils Absolute Auto 0.2 X10*3/uL (0.0-0.4); Eosinophils Percent Auto 4.4 % (0-4); Hematocrit 37.8 % (37.0-47.0); Hemoglobin 11.6 g/dl (12.0-16.0); Imm Gran Abs Auto 0.02 X10*3/uL (0.00-0.03); Imm Gran Pct Auto 0.4 % (0.0-0.4); Lymphocytes Percent Auto 19.4 % (20-40); Mean Corpuscular HGB Conc 30.7 g/dl (31.0-35.0); Mean Corpuscular Hemoglobin 27.2 pg (27.0-33.0); Mean Corpuscular Volume 88.5 fL (80.0-98.0); Mean Platelet Volume 11.2 fL (9.4-12.3); Monocytes Absolute Auto 0.6 X10*3/uL (0.1-1.2); Monocytes Percent Auto 10.6 % (2-11); Neutrophils Absolute Auto 3.4 x10*3/uL (2.0-8.3); Neutrophils Percent Auto 64.4 % (45-73); Platelet Count 265 X10*3/uL (160-400); Red Blood Count 4.27 X10*6/uL (4.20-5.50); Red Cell Distribution Width 15.5 % (11.0-16.0); White Blood Count 5.3 X10*3/uL (4.8-10.8)
[2024-03-03 14:12] LABS: Alanine Aminotransferase 8 U/L (0-31); Albumin Level 3.3 g/dL (3.5-5.0); Alkaline Phosphatase 130 U/L (39-117); Anion Gap 8 (12-20); Aspartate Amino Transferase 15 U/L (5-31); Bilirubin Total 0.3 mg/dL (0.0-1.0); Blood Urea Nitrogen 15 mg/dL (9-16); Calcium 9.7 mg/dL (8.4-10.2); Carbon Dioxide 32 mmol/L (22-29); Chloride 106 mmol/L (96-108); Estimated Glomerular Filt Rate > 60; Glucose Random 98 mg/dL (60-115); Potassium 4.2 mmol/L (3.3-5.1); Sodium 142 mmol/L (135-145); Total Protein 5.7 g/dL (6.5-8.0)
== END 2024-03-03 12:24 | disposition home or self-care (01) ==
LOC: HO.LAB 12:23
PROVIDERS: PCP Internal Medicine; Visit Provider Internal Medicine
DX: D50.8 Other iron deficiency anemias (principal); N30.00 Acute cystitis without hematuria; R30.0 Dysuria
CPT/HCPCS: 36415; 80053; 85025

== ENCOUNTER 2024-04-15 21:42 | Emergency (ER) | payer OTHER, SELFPAY ==
--- NOTE | ~2024-04-15 | CT_ITS ---
EXAMINATION: CT ABDOMEN AND PELVIS WITHOUT CONTRAST CLINICAL INFORMATION: Left flank pain and hematuria. COMPARISON: CT abdomen and pelvis 07/26/2019. TECHNIQUE: Multidetector volumetric imaging was performed from the superior aspect of the liver through the pubic symphysis. Sagittal and coronal reformatted images were obtained on the technologist's workstation. This CT examination was performed using dose optimization techniques as appropriate, variously including the following: *Automated exposure control *Adjustment of mA and/or kV according to patient size (this includes techniques or standardized protocols for targeted exams where dose is matched to indication/reason for exam; i.e. extremities or head) *Use of iterative reconstruction technique DLP: 400 mGy-cm FINDINGS: LUNG BASES: Large portion of the stomach resides with in the right parasagittal inferior aspect of the mediastinum similar findings present 07/26/2019, possibly related to a prior gastric wall through. The stomach is not fully included within the imaged field of view. LIVER, GALLBLADDER, AND BILIARY TREE: The liver is normal in size, shape, and attenuation. No focal hepatic lesion or biliary ductal dilatation is present. Status post cholecystectomy. Prominent ectasia of the common bile duct is present similar findings present 07/26/2019 PANCREAS: Unremarkable. SPLEEN: Unremarkable. ADRENAL GLANDS: Unremarkable. KIDNEYS AND URETERS: Mild left perinephric inflammatory changes. Moderate left hydronephrosis and diffuse left ureterectasis. 2 calculi are present at the left ureteral vesicular junction. The most distal calculus measures 3 mm x 2 mm. The second calculus which is closely approximated but slightly distal to the ureterovesicular junction measures 4 mm x 2 mm. No additional urolithiasis visualized. Multiple right parapelvic benign appearing simple cysts are present and more no additional imaging follow-up in the basis of this examination. Several left parapelvic simple cysts are noted in warrant no additional imaging follow-up in the basis of this examination. No discrete perinephric fluid collections. BLADDER: Mild distention. GASTROINTESTINAL TRACT: Normal appearance of the appendix (series 7 image 28). No free intraperitoneal fluid or gas collections. No intestinal dilatation or mural thickening. ABDOMINAL WALL: Right parasagittal epigastric hernia containing fat without associated inflammatory changes. The neck measures 2.5 cm. The hernia measures 5.5 cm. The hernia is slightly increased in size compared with 07/26/2019. LYMPH NODES: Normal. VASCULAR: Moderate scattered calcific atherosclerosis PELVIC VISCERA: Normal appearance of the uterus. No adnexal lesions. OSSEOUS STRUCTURES: No suspicious skeletal lesions noted. Multilevel intervertebral disc space narrowing and endplate osteophytosis of the lumbar spine. CT/CT abdomen pelvis wo IV con IMPRESSION: 1. Left-sided obstructive uropathy secondary to 2 calculi at the left ureterovesicular junction. The most distal calculus measures 3 mm x 2 mm and the second calculus measures 4 mm x 2 mm. The second calculus is closely approximated but slightly distal to the ureterovesicular junction. Moderate left hydronephrosis and diffuse left ureterectasis. No discrete perinephric fluid collections. No additional urolithiasis. 2. Status post cholecystectomy. 3. A large portion of the proximal stomach resides within the right parasagittal inferior aspect of the mediastinum. This finding is unchanged compared with 07/26/2019 and may related to a prior gastric wall through. 4. Right parasagittal epigastric hernia containing fat without associated inflammatory changes. The hernia is slightly increased in size compared with 07/26/2019. Electronically signed by: Antwan Morales MD 04/16/2024 01:19 AM JANINE
[2024-04-15 21:48] VITALS: BP 155/90; PULSE 68; RESP 16; TEMP 36.7; O2SAT 100; BMI 23.2
[2024-04-15 21:58] LABS: MANUAL DIFF FLAG NO
--- OUTSIDE RECORDS SUMMARY | 2024-04-15 21:58 | XMS_ITS | Continuity of Care Document ---
Author Organization [facility] niurka Address [address] [place] [address] [address] [place] [address]- Care Team Providers Care Water Plant Maintenance Mechanic Name Role Phone Luisa GLASER, Genie Timmons Primary Care Physician [phone] Encounter [facility] [place] [facility] [id number] Date(s): 06/01/22 - 06/08/22 [facility] [address] [place] [address]- Attending Physician: Not on Staff, Attending MD Allergies, Adverse Reactions, Alerts Substance Reaction Severity Status Other Food Allergy 1 Active 1sunflower seeds throat swells up Medications acetaminophen 500 mg oral tablet TAKE 1 TABLET BY MOUTH EVERY 6 HOURS NEEDED FOR PAIN *NO MORE THAN 4 TABS A DAY Start Date: 05/07/22 Status: Ordered anastrozole 1 mg oral tablet 1 tablet = 1 mg, By Mouth, Daily, # 30 tablet, 2 Refills, Maintenance, 03/31/22 12:12:00 EST, Tablet, [id number], Partial fill upon patient request if the prescription is for a schedule II opioid drug., 163, cm, 03/31/22 8:53:00 EST, Height, 6... Start Date: 03/31/22 Status: Ordered Carafate Tablet 1 Gm, By Mouth, 3 times a day before meals and bedtime, Maintenance, 06/22/13 16:22:33 Start Date: 06/22/13 Status: Ordered cyclobenzaprine 10 mg oral tablet PLEASE SEE ATTACHED FOR DETAILED DIRECTIONS Start Date: 05/07/22 Status: Ordered ferrous fumarate 300 mg oral tablet 1 tablet = 300 mg, By Mouth, Daily, # 30 tablet, 0 Refills, Maintenance, 05/09/22 9:00:00 EST, Tablet, Partial fill upon patient request if the prescription is for a schedule II opioid drug. Start Date: 05/09/22 Status: Ordered ibuprofen 600 mg oral tablet TAKE 1 TABLET BY MOUTH EVERY 6 HOURS ALTERNATING WITH TYLENOL Start Date: 05/07/22 Status: Ordered omeprazole 40 mg oral enteric coated capsule 1 capsule = 40 mg, By Mouth, 2 times a day, # 60 capsule, 1 Refills, Maintenance, 05/09/22 9:02:00 EST, Suspension, [facility]/pharmacy #[id number], Partial fill upon patient request if the prescription is for a schedule II opioid drug., 164.3, cm, 04/30/22 11:20:... Start Date: 05/09/22 Status: Ordered ProAir HFA 2 puffs, Inhalation, Every 6 hours, PRN Wheezing/Shortness of Breath, 0 Refills, Maintenance, 03/18/22 7:26:00 EDT, Partial fill upon patient request if the prescription is for a schedule II opioid drug. Start Date: 03/18/22 Status: Ordered Problem List Condition Confirmation Course Effective Dates Status H ealth Status Informant Achalasia Confirmed Active Asthma Confirmed Active Cholecystectomy Confirmed Active Family history of breast cancer Confirmed Active H/O: GI Bleed Confirmed Active History of fundoplication Confirmed Active Cancer of central portion of left female breast Confirmed 11/2021 Active Migraine Confirmed Active Myotomy Confirmed Active Vital Signs Most recent to oldest [Reference Range]: 1 Height 164.3 cm (06/01/22 9:45 AM) Weight 59.09 kg (06/01/22 9:45 AM) Body Mass Index [18.5-24.99 kg/m2] 21.89 kg/m2 (06/01/22 9:45 AM) Weight Obtained Via Standing scale (06/01/22 9:45 AM) Social History Social History Type Response Smoking Status Never smoker entered on: 08/31/13 Sex Patient Care team information Care Team Personnel Name: Genie Moran MD Position: [facility] Outreach Member Role: PCP Address: Address: [address] [place] [address]- Name: Tana Schaefer NP Position: [facility] PCO Associate Professional Member Role: Primary Care Nurse Address: Address: [address] [place] [address]- Name: Karyn Sweeney RN Position: [facility] SN RN Member Role: Primary Care Nurse Name: Marianna Cruz RN Position: S RN Member Role: Primary Care Nurse Care Team Related Persons Name: RACHELLE HERNANDEZ Address: [address] [address] Name: YANCI DELAROSA Address: [place] [address]
--- OUTSIDE RECORDS SUMMARY | 2024-04-15 21:58 | XMS_ITS | Continuity of Care Document ---
Author Organization [facility] niurka Address [address] [place] [address] [address] [place] [address]- Care Team Providers Care Client Sales And Service Officer Name Role Phone Genie Moran MD Primary Care Physician Encounter [facility] [place] Date(s): 03/19/22 - 03/26/22 [facility] [address] [place], [place] [address] Attending Physician: Jorge Staples MD Allergies, Adverse Reactions, Alerts Substance Reaction Severity Status Other Food Allergy 1 Active 1sunflower seeds throat swells up Medications Carafate Tablet 1 Gm, By Mouth, 3 times a day before meals and bedtime, Maintenance, 06/22/13 16:22:33 Start Date: 06/22/13 Status: Ordered ibuprofen 600 mg oral tablet 600 mg, 1, tablet, By Mouth, Every 6 hours, for 14 days, alternate every 6 hrs with tylenol, # 50 tablet, Refills 0, Tot. Refills 0, Acute 04/01/22 9:27:00 EST, 03/18/22 9:27:00 EDT, Route to Pharmacy Electronically, [facility]/pharmacy #[id number], Partial fill u... Start Date: 03/18/22 Stop Date: 04/01/22 Status: Ordered lidocaine 4% topical cream 1 application, Topically, Once, Apply to nipple areola 1 hour before arriving for surgery, cover with saran wrap., # 5 Gm, 0 Refills, Soft Stop, 01/13/22 11:08:00 EDT, Cream, [id number], Partial fill upon patient request if the prescription is... Start Date: 01/13/22 Status: Ordered Omeprazole By Mouth, Daily, 0 Refills, Maintenance, 06/22/13 16:22:40 Start Date: 06/22/13 Status: Ordered oxyCODONE 5 mg oral tablet 5 mg, 1, tablet, By Mouth, Every 6 hours, PRN, for break thru pain, # 20 tablet, Refills 0, Tot. Refills 0, Maintenance, for pain, 03/18/22 9:27:00 EDT, Route to Pharmacy Electronically, [facility]/pharmacy#[id number], Partial fill upon patient request if the pre... Start Date: 03/18/22 Status: Ordered ProAir HFA 2 puffs, Inhalation, Every 6 hours, PRN Wheezing/Shortness of Breath, 0 Refills, Maintenance, 03/18/22 7:26:00 EDT, Partial fill upon patient request if the prescription is for a schedule II opioid drug. Start Date: 03/18/22 Status: Ordered Tylenol Extra Strength 500 mg oral tablet 1 tablet = 500 mg, By Mouth, Every 6 hours, PRN as needed for pain, for 14 days, (no more than 4 tabs a day), # 50 tablet, 0 Refills, Acute 04/01/22 9:27:00 EST, 03/18/22 9:27:00 EDT, Tablet, [facility]/pharmacy #[id number], Partial fill upon patient request if th... Start Date: 03/18/22 Stop Date: 04/01/22 Status: Ordered Zofran ODT 4 mg oral tablet, disintegrating 1 tablet = 4 mg, By Mouth, Every 8 hours, PRN Nausea & Vomiting, # 10 tablet, 0 Refills, Maintenance, 06/22/13 21:46:23, Tablet Start Date: 06/22/13 Status: Ordered Problem List Condition Confirmation Course [...] recent to oldest [Reference Range]: 1 Height 165.0 cm (03/19/22 11:48 AM) Oxygen Saturation [94-100 %] 100 % (03/19/22 11:48 AM) Pulse Rate [55-90 bpm] 60 bpm (03/19/22 11:48 AM) Blood Pressure [90-138/55-84 mm Hg] 142/ 71mm Hg *H* (03/19/22 11:48 AM) Temperature [96.8-100.4 DegF] 99.1 DegF (03/19/22 11:48 AM) Blood pressure sites Arm, right (03/19/22 11:48 AM) Temperature Route Tympanic (03/19/22 11:48 AM) Social History Social History Type Response Smoking Status Never smoker entered on: 08/31/13 Sex Patient Care team information Personnel Name: Genie Moran MD Address: Address: [address] [place] [address] [address] Genie Moran MD [place], [place] [address]
--- OUTSIDE RECORDS SUMMARY | 2024-04-15 21:58 | XMS_ITS | Continuity of Care Document ---
Author Organization [facility] niurka Address [address] [place] [address] [address] [place] [address]- Care Team Providers Care Advanced Quality Engineer Name Role Phone Genie Moran MD Primary Care Physician Encounter [facility] [place] Date(s): 03/30/22 - 04/06/22 [facility] [address] [place] [address]- Attending Physician: Mariama Serrato Allergies, Adverse Reactions, Alerts Substance Reaction Severity Status Other Food Allergy 1 Active 1sunflower seeds throat swells up Medications anastrozole 1 mg oral tablet 1 tablet = 1 mg, By Mouth, Daily, # 30 tablet, 2 Refills, Maintenance, 03/31/22 12:12:00 EST, Tablet, [id number], Partial fill upon patient request if the prescription is for a schedule II opioid drug., 163, cm, 03/31/22 8:53:00 EST, Height, 6... Start Date: 03/31/22 Status: Ordered Carafate Tablet 1 Gm, By Mouth, 3 times a day before meals and bedtime, Maintenance, 06/22/13 16:22:33 Start Date: 06/22/13 Status: Ordered Omeprazole By Mouth, Daily, 0 Refills, Maintenance, 06/22/13 16:22:40 Start Date: 06/22/13 Status: Ordered ProAir HFA 2 puffs, Inhalation, Every 6 hours, PRN Wheezing/Shortness of Breath, 0 Refills, Maintenance, 03/18/22 7:26:00 EDT, Partial fill upon patient request if the prescription is for a schedule II opioid drug. Start Date: 03/18/22 Status: Ordered Zofran ODT 4 mg oral [...] oldest [Reference Range]: 1 Height 165.0 cm (03/30/22 8:57 AM) Social History Social History Type Response Smoking Status Never smoker entered on: 08/31/13 Sex Patient Care team information Care Team Personnel Name: Genie Moran MD Position: [facility] Outreach Member Role: PCP Address: Address: [address] [place] [address] [address] [place] [address]- Name: Tana Schaefer NP Position: [facility] PCO Associate Professional Member Role: Primary Care Nurse Address: Address: [address] [place] [address]- Name: Karyn Sweeney RN Position: [facility] SN RN Member Role: Primary Care Nurse Name: Marianna Cruz RN Position: [facility] RN Member Role: Primary Care Nurse Care Team Related Persons Name: RACHELLE HERNANDEZ Address: home [address] [place] [address] Name: YANCI DELAROSA Address: [place] [address]
--- OUTSIDE RECORDS SUMMARY | 2024-04-15 21:58 | XMS_ITS | Continuity of Care Document ---
Author Organization [facility] Address [address] [place] [address] [address] [place] [address]- Care Team Providers Care Supply Technician Name Role Phone Genie Moran MD Primary Care Physician [place] [facility] [place] Date(s): 02/01/23 - 02/08/[address] [place], [place] [address] Attending Physician: Buck Devlin MD Referring Physician: Jorge Staples MD Allergies, Adverse Reactions, Alerts Substance Reaction Severity Status Other Food Allergy 1 Active 1sunflower seeds throat swells up Medications anastrozole 1 mg oral tablet 1 tablet, By Mouth, Daily, # 30 tablet, 2 Refills, Maintenance, 10/10/22 10:34:00 EDT, [id number], 164.3, cm, 08/10/22 14:55:00 EDT, Height, 58.3, kg, 08/10/22 14:55:00 EDT, Dry Weight Start Date: 10/10/22 Status: Ordered Carafate Tablet 1 Gm, By Mouth, 3 times a day before meals and bedtime, Maintenance, 06/22/13 16:22:33 Start Date: 06/22/13 Status: Ordered exemestane 25 mg oral tablet 1 tablet, By Mouth, Daily, # 30 tablet, 11 Refills, Maintenance, 09/16/22 9:37:00 EDT, [id number], 164.3, cm, 08/10/22 14:55:00 EDT, Height, 58.3, kg, 08/10/22 14:55:00 EDT, Dry Weight Start Date: 09/16/22 Status: Ordered ferrous fumarate 300 mg oral tablet 1 tablet = 300 mg, By Mouth, Daily, # 30 tablet, 0 Refills, Maintenance, 05/09/22 9:00:00 EST, Tablet, Partial fill upon patient request if the prescription is for a schedule II opioid drug. Start Date: 05/09/22 Status: Ordered omeprazole 40 mg oral enteric coated capsule 1 capsule = 40 mg, By Mouth, 2 times a day, # 60 capsule, 1 Refills, Maintenance, 05/09/22 9:02:00 EST, Suspension, [facility] #[id number], Partial fill upon patient request if [...] Confirmed Active History of fundoplication Confirmed Active Incisional hernia Confirmed Active Cancer of central portion of left female breast Confirmed 11/2021 Active Migraine Confirmed Active Myotomy Confirmed Active Vital Signs Most recent to oldest [Reference Range]: 1 Height 164.3 cm (02/01/23 9:38 AM) Weight 58 kg (02/01/23 9:38 AM) Oxygen Saturation [94-100 %] 98 % (02/01/23 9:38 AM) Pulse Rate [55-90 bpm] 65 bpm (02/01/23 9:38 AM) Body Mass Index [18.5-24.99 kg/m2] 21.49 kg/m2 (02/01/23 9:38 AM) Blood Pressure [90-138/55-84 mm Hg] 144/ 87mm Hg *H* (02/01/23 9:38 AM) Respiratory Rate [16-30 br/min] 16 br/mi n (02/01/23 9:38 AM) Temperature [96.8-100.4 DegF] 98.2 DegF (02/01/23 9:38 AM) Mode of Delivery (Oxygen) Room air (02/01/23 9:38 AM) Blood pressure sites Arm, right (02/01/23 9:38 AM) Temperature Route Oral (02/01/23 9:38 AM) Dry Weight 58 kg (02/01/23 9:38 AM) Weight Obtained Via Patient/family state d (02/01/23 9:38 AM) Dry Weight Obtained Via Patient/family s tated (02/01/23 9:38 AM) Social History Social History Type Response Smoking Status Never smoker entered on: 08/31/13 Sex Patient Care team information Care Team Personnel Name: Genie Moran MD Position: [facility] Outreach Member Role: PCP Address: Address: [address] [place] [address]- Name: Tana Schaefer NP Position: [facility] PCO Associate Professional Member Role: Primary Care Nurse Address: Address: [address] [place] [address]- Name: Karyn Sweeney RN Position: [facility] SN RN Member Role: Primary Care Nurse Name: Marianna Cruz RN Position: [facility] RN Member Role: Primary Care Nurse Care Team Related Persons Name: CLAUDINE ELIZABETH Name: RACHELLE HERNANDEZ Address: home [address] [place] [address]
--- OUTSIDE RECORDS SUMMARY | 2024-04-15 21:58 | XMS_ITS | Continuity of Care Document ---
Author Organization [facility] Address [address] [place] [address]- Care Team Providers Care Shotweld Operator Name Role Phone Genie Moran MD Primary Care Physician [phone] Encounter [facility] Date(s): 03/31/22 - 04/30/22 [facility] [address] [place] [address]- Attending Physician: Admtr, Ira Admitting Physician: Admtr, Sree8 Referring Physician: Admtr, Ar8 Allergies, Adverse Reactions, Alerts Substance Reaction Severity [...] a schedule II opioid drug. Start Date: 10/26/22 Status: Ordered Zofran ODT 4 mg oral [...] Active Migraine Confirmed Active Myotomy Confirmed Active Social History Social History Type Response Smoking Status Never smoker entered on: 08/31/13 Sex Patient Care team information Care Team Personnel Name: Genie Moran MD Position: [facility] Outreach Member Role: PCP Address: Address: [address] [place] [address]- Name: Olive ABE TEACHER, Tana Johnson Position: [facility] PCO Associate Professional Member Role: Primary Care Nurse Address: Address: [address] [place] [address]- Name: Karyn Sweeney RN Position: [facility] SN RN Member Role: Primary Care Nurse Name: Marianna Cruz RN Position: [facility] RN Member Role: Primary Care Nurse Care Team Related Persons Name: RACHELLE HERNANDEZ Address: home [address] [place] [address] Name: YANCI DELAROSA Address: [place] [address]
--- OUTSIDE RECORDS SUMMARY | 2024-04-15 21:58 | XMS_ITS | Continuity of Care Document ---
Author Organization [facility] Address [address] [place] [address] [address], [address] [place] [address]- Care Team Providers Care Site Physician Name Role Phone Luisa GLASER, Genie Timmons Primary Care Physician En[facility] [place] Date(s): 10/31/20 - 11/30/20 [facility] [address] [place] [address] Drive, [address] [place], [place] [address] Allergies, Adverse Reactions, Alerts Substance Reaction Severity Status Other Food Allergy 1 Active 1sunflower seeds throat swells up Medications Carafate Tablet 1 Gm, By Mouth, 3 times a day before meals and bedtime, Maintenance, 06/22/13 16:22:33 Start Date: 06/22/13 Status: Ordered Flomax 0.4 mg oral capsule 1 capsule = 0.4 mg, By Mouth, Daily, # 5 capsule, 0 Refills, Maintenance, 06/06/15 21:43:41, Capsule Start Date: 06/06/15 Stop Date: 06/11/15 Status: Ordered Omeprazole By Mouth, Daily, 0 Refills, Maintenance, 06/22/13 16:22:40 Start Date: 06/22/13 Status: Ordered Zofran ODT 4 mg oral tablet, disintegrating 1 tablet = 4 mg, By Mouth, Every 8 hours, PRN Nausea & Vomiting, # 10 tablet, 0 Refills, Maintenance, 06/22/13 21:46:23, Tablet Start Date: 06/22/13 Status: Ordered Problem List Condition Effective Dates Status Health Status Inform ant Achalasia(Confirmed) Active Asthma(Confirmed) Active Cholecystectomy(Confirmed) Active H/O: GI Bleed(Confirmed) Active History of fundoplication(Confirmed) Active Migraine(Confirmed) Active Myotomy(Confirmed) Active Social History Social History Type Response Smoking Status Never smoker entered on: 08/31/13 Sex
--- OUTSIDE RECORDS SUMMARY | 2024-04-15 21:58 | XMS_ITS | Continuity of Care Document ---
Author Organization [facility] ni[facility]ka Address [address] [place] [address] [address] [place] [address]- Care Team Providers Care Stereotype Finisher Name Role Phone Luisa GLASER, Genie Timmons Primary Care Physician [phone] Encounter [facility] [place] Date(s): 05/18/23 - 06/17/23 [facility] [address] [place], [place] [address] Attending Physician: AdmtrIra Admitting Physician: Admtr, Ar8 Referring Physician: Admtr, Ar8 Allergies, Adverse Reactions, Alerts Substance Reaction Severity Status Other Food Allergy 1 Active 1sunflower seeds throat swells up Medications Carafate Tablet 1 Gm, By Mouth, 3 times a day before meals and bedtime, Maintenance, 06/22/13 16:22:33 Start Date: 06/22/13 Status: Ordered exemestane 25 mg oral tablet 1 tablet, By Mouth, Daily, # 90 tablet, 3 Refills, Maintenance, 02/11/23 10:41:00 EDT, [id number], 164.3, cm, 02/11/23 9:42:00 EDT, Height, 57.7, kg, 02/11/23 9:42:00 EDT, Dry Weight Start Date: 02/11/23 Status: Ordered ferrous fumarate 300 mg oral [...] 1 Refills, Maintenance, 05/09/22 9:02:00 EST, Suspension, [id number], Partial fill upon patient request [...] Active Asthma Confirmed Active Cholecystectomy Confirmed Active Multiple pancreatic cysts Confirmed Active Family history of breast cancer Confirmed Active H/O: GI Bleed Confirmed Active History of fundoplication Confirmed Active Incisional hernia Confirmed Active Cancer of central portion of left female breast Confirmed 11/2021 Active Migraine Confirmed Active Myotomy Confirmed Active Malignant neoplasm of overlapping sites of left breast in female, estrogen receptor positive Confirmed Active Social History Social History Type Response Smoking Status Never smoker entered on: 08/31/13 Sex Patient Care team information Care Team Personnel Name: Genie Moran MD Position: [facility] Outreach Member Role: PCP Address: Address: [address] [place] [address]- Name: Marianna Kinsey RN Position: [facility] RN Member Role: Primary Care Nurse Name: Tana Schaefer NP Position: [facility] PCO Associate Professional Member Role: Primary Care Nurse Address: Address: [address] [place] [address]- Name: Karyn Sweeney RN Position: [facility] SN RN Member Role: Primary Care Nurse Care Team Related Persons Name: CLAUDINE ELIZABETH Name: RACHELLE HERNANDEZ Address: home [address] [place] [address]
--- OUTSIDE RECORDS SUMMARY | 2024-04-15 21:58 | XMS_ITS | Continuity of Care Document ---
Author Organization [facility] niurka Address [address] [place] [address] [address] [place] [address]- Care Team Providers Care Production Laborer Name Role Phone Genie Moran MD Primary Care Physician En[place] [facility] [place] Date(s): 05/04/22 - 05/11/22 [facility] [address] [place], [place] [address] Attending Physician: Jorge Staples MD Allergies, Adverse [...] 2 Refills, Maintenance, 03/31/22 12:12:00 EST, Tablet, [facility]/pharmacy #[id number], Partial fill upon patient request if the [...] DETAILED DIRECTIONS Start Date: 05/07/22 Status: Ordered cyclobenzaprine 5 mg oral tablet 1 tablet = 5 mg, By Mouth, 3 times a day, PRN Spasm, for 7 days, # 21 tablet, 0 Refills, Acute 05/16/22 9:03:00 EST, 05/09/22 9:03:00 EST, [facility]/pharmacy #[id number], Partial fill upon patient request if theprescription is for a schedule II opioid drug., 164... Start Date: 05/09/22 Stop Date: 05/16/22 Status: Ordered ferrous fumarate 300 mg oral [...] 1 Refills, Maintenance, 05/09/22 9:02:00 EST, Suspension, [facility]/pharmacy #[id number], Partial fill upon patient request if [...] Team Personnel Name: Genie Moran MD Position: [facility] Outreach Member Role: PCP Address: Address: [address] [place] [address]- Name: Tana Schaefer NP Position: [facility] PCO Associate Professional Member Role: Primary Care Nurse Address: Address: [address] [place] [address]- Name: Karyn Sweeney RN Position: [facility] SN RN Member Role: Primary Care Nurse Name: Marianna Cruz RN Position: S RN Member Role: Primary Care Nurse Care Team Related Persons Name: RACHELLE HERNANDEZ Address: [address] [address] Name: YANCI DELAROSA Address: [place] [address]
--- OUTSIDE RECORDS SUMMARY | 2024-04-15 21:58 | XMS_ITS | Continuity of Care Document ---
Author Organization [facility] Address [address] [place] [address] [address] [place] [address]- Care Team Providers Care Long Chain Quiller Tender Name Role Phone Genie Moran MD Primary Care Physician [place] [facility] [place] 04/13/22 - 04/20/22 [facility] [address] [place], [place] [address] Attending Physician: Not on Staff, Attending MD [...] Height, 6... Start Date: 03/31/22 Status: Ordered Bactrim DS 800 mg-160 mg oral tablet 1 tablet, By Mouth, 2 times a day, for 10 days, # 20 tablet, 0 Refills, Acute 04/23/22 10:57:00 EST, 04/13/22 10:57:00 EST, Tablet, [id number], Partial fill upon patient request if the prescription is for a schedule II opioid drug., 1 tablet B... Start Date: 04/13/22 Stop Date: 04/23/22 Status: Ordered Carafate Tablet 1 Gm, By [...] recent to oldest [Reference Range]: 1 Height 163 cm (04/13/22 10:24 AM) Weight 69.3 kg (04/13/22 10:24 AM) Body Mass Index [18.5-24.99 kg/m2] 26.08 kg/m2 *H* (04/13/22 10:24 AM) Temperature [96.8-100.4 DegF] 98.6 DegF (04/13/22 10:24 AM) Weight Obtained Via Standing scale (04/13/22 10:24 AM) Social History Social History Type Response Smoking Status Never smoker entered on: 08/31/13 Sex Patient Care team information Care Team Personnel Name: Genie Moran MD Position: [facility] Outreach Member Role: PCP Address: Address: [address] [place] [address]- Name: Tana Schaefer NP Position: [facility] PCO Associate Professional Member Role: Primary Care Nurse Address: Address: [address] [place] [address] Name: Karyn Sweeney RN Position: [facility] RN Member Role: Primary Care Nurse Name: Marianna Cruz RN Position: [facility] RN Member Role: Primary Care Nurse Care Team Related Persons Name: RACHELLE HERNANDEZ Address: [address] [address] Name: YANCI DELAROSA Address: [place] [address]
--- OUTSIDE RECORDS SUMMARY | 2024-04-15 21:58 | XMS_ITS | Continuity of Care Document ---
Author Organization [facility] ancer Care Address [address] [place] [address]- Care Team Providers Care Contact Finger Assembler Name Role Phone Luisa GLASER, Genie Timmons Primary Care Physician [phone] [facility] [place] Date(s): 03/31/22 - 04/30/22 [facility] [address] [place] [id number] Allergies, Adverse Reactions, Alerts Substance Reaction Severity [...] Team Personnel Name: Genie Moran MD Position: [facility] Outreach Member Role: PCP Address: Address: [address] [place] [address]- Name: Tana Schaefer NP Position: [facility] PCO Associate Professional Member Role: Primary Care Nurse Address: Address: [address] [place] [address]- Name: Karyn Sweeney RN Position: [facility] SN RN Member Role: Primary Care Nurse Name: Marianna Cruz RN Position: [facility] RN Member Role: Primary Care Nurse Care Team Related Persons Name: RACHELLE HERNANDEZ Address: home [address] [place] [address] Name: YANCI DELAROSA Address: [place] [address]
--- OUTSIDE RECORDS SUMMARY | 2024-04-15 21:58 | XMS_ITS | Continuity of Care Document ---
Author Organization [facility] Marni niurka Address [address] [place] [address] [address] [place] [address]- Care Team Providers Care Parts Counter Associate Name Role Phone Genie Moran MD Primary Care Physician [phone] [place] [facility] [place]/23/23 - 11/30/23 [facility] [address] [address] Attending Physician: Not on Staff, Attending MD Referring Physician: Genie Moran MD Allergies, Adverse Reactions, Alerts Substance Reaction Severity Status Other Food Allergy 1 Active 1sunflower seeds throat swells up Medications 1.5kcal/mL oral supplement TID vanilla 1.5kcal/mL oral supplement TID vanilla, See Instructions, # 1 each, Refills 0, Tot. Refills 0, Maintenance, E44.1- Mild protein-energy malnutrition, 07/28/23 13:23:00 EST, Supply Start Date: 07/28/23 Status: Ordered ABC Complete Multiple Vitamins with Minerals oral tablet 1 tablet, By Mouth, Daily, # 30 tablet, 1 Refills, Maintenance, 07/28/23 13:24:00 EST, [facility], Partial fill upon patient request if the prescription is for a schedule II opioid drug., 1 tablet By Mouth Daily, 164.3, cm, 05/12/23 10:3... Start Date: 07/28/23 Status: Ordered Albuterol (Eqv-Ventolin HFA) 90 mcg/inh inhalation aerosol 2 puffs, Inhalation, Every 4 hours, PRN Wheezing/Shortness of Breath, 0 Refills, Maintenance, 07/26/23 18:41:00 EST, Partial fill upon patient request if the prescription is for a schedule II opioid drug. Start Date: 07/26/23 Status: Ordered Carafate Tablet 1 Gm, By Mouth, 3 times a day before meals and bedtime, Maintenance, 06/22/13 16:22:33 Start Date: 06/22/13 Status: Ordered exemestane 25 mg oral tablet 1 tablet, By Mouth, Daily, # 90 tablet, 3 Refills, Maintenance, 02/11/23 10:41:00 EDT, [facility]/pharm[facility]#[id number], 164.3, cm, 02/11/23 9:42:00 EDT, Height, 57.7, kg, 02/11/23 9:42:00 EDT, Dry Weight Start Date: 02/11/23 Status: Ordered ferrous fumarate 300 mg oral tablet 1 tablet = 300 mg, By Mouth, Every Wednesday, and Wednesday, # 30 tablet, 0 Refills, Maintenance, 05/09/22 [...] 04/30/22 11:20:... Start Date: 05/09/22 Status: Ordered Problem List Condition Confirmation Course Effective Dates Status H ealth Status Informant Achalasia Confirmed Active Asthma Confirmed Active Cholecystectomy Confirmed Active Multiple pancreatic cysts Confirmed Active Family history of breast cancer Confirmed Active GI bleed Confirmed Active H/O: GI Bleed Confirmed Active History of fundoplication Confirmed Active Incisional hernia Confirmed Active Iron deficiency anemia Confirmed Active Cancer of central portion of left female breast Confirmed 11/2021 Active Migraine Confirmed Active Myotomy Confirmed Active Malignant neoplasm of overlapping sites of left breast in female, estrogen receptor positive Confirmed Active Vital Signs Most recent to oldest [Reference Range]: 1 Height 165 cm (11/23/23 1:37 PM) Weight 60.8 kg (11/23/23 1:37 PM) Body Mass Index [18.5-24.99 kg/m2] 22.33 kg/m2 (11/23/23 1:37 PM) Social History Social History Type Response Smoking Status Never smoker entered on: 08/31/13 Sex Patient Care team information Care Team Personnel Name: Genie Moran MD Position: [facility] Outreach Member Role: PCP Address: Address: [address] [place] [address]- Name: Marianna Kinsey RN Position: [facility] RN Member Role: Primary Care Nurse Name: Esther Blackburn RN Position: [facility] RN Member Role: Primary Care Nurse Name: Tana Schaefer NP Position: [facility] PCO Associate Professional Member Role: Primary Care Nurse Address: Address: [address] [place] [address]- [place] Name: Karyn Sweeney RN Position: [facility] SN RN Member Role: Primary Care Nurse Name: Matheus Nieves RN Position: [facility] RN Member Role: Primary Care Nurse Care Team Related Persons Name: CLAUDINE ELIZABETH Address: home [address] [place] [address] Name: RACHELLE DELAROSA Address: [address] [place] [address]
--- OUTSIDE RECORDS SUMMARY | 2024-04-15 21:58 | XMS_ITS | Continuity of Care Document ---
Author Organization [facility] ancer Care Address [address] [place] [address]- Care Team Providers Care Cane Feeder Name Role Phone Luisa GLASER, Genie Timmons Primary Care Physician [phone] [place] [facility] [place]23 - 01/05/24 [facility] Care [address] [place] [address] Allergies, Adverse Reactions, Alerts Substance Reaction [...] tablet, 1 Refills, Maintenance, 07/28/23 13:24:00 EST, [facility], Partial fill upon patient [...] opioid drug. Start Date: 07/26/23 Status: Ordered anastrozole 1 mg oral tablet 1 tablet = 1 mg, By Mouth, Daily, # 30 tablet, 5 Refills, Maintenance, 01/04/24 11:52:00 EDT, Tablet, [id number], Partial fill upon patient request if the prescription is for a schedule II opioid drug., 165, cm, 12/06/23 11:21:00 EDT, Height,... Start Date: 01/04/24 Status: Ordered Carafate Tablet 1 Gm, By [...] Team Personnel Name: Genie Moran MD Position: [facility] Outreach Member Role: PCP Address: Address: [address] [place] [address]- Name: Marianna Kinsey RN Position: [facility] RN Member Role: Primary Care Nurse Name: Esther Blackburn RN Position: [facility] RN Member Role: Primary Care Nurse Name: Tana Schaefer NP Position: [facility] PCO Associate Professional Member Role: Primary Care Nurse Address: Address: [address] [place] [address]- [place] Name: Karyn Sweeney RN Position: [facility] SN RN Member Role: Primary Care Nurse Name: Matheus Nieves RN Position: [facility] RN Member Role: Primary Care Nurse Care Team Related Persons Name: CLAUDINE ELIZABETH Address: [address] [place] [address] Name: RACHELLE DELAROSA Address: [address] [place] [address]
--- OUTSIDE RECORDS SUMMARY | 2024-04-15 21:58 | XMS_ITS | Continuity of Care Document ---
Author Organization [facility] niurka Address [address] [place] [address] [address] [place] [address]- Care Team Providers Care Direct Support Staff Name Role Phone Genie Moran MD Primary Care Physician [phone] Encounter [facility] [place] Date(s): 03/26/22 - 04/25/22 [facility] [address] [place], [place] [address] Allergies, Adverse Reactions, Alerts [...] Team Personnel Name: Genie Moran MD Position: [facility] Outreach Member Role: PCP Address: Address: [address] [place] [address]- Name: Tana Schaefer NP Position: [facility] PCO Associate Professional Member Role: Primary Care Nurse Address: Address: [address] [place] [address]- Name: Karyn Sweeney RN Position: [facility] SN RN Member Role: Primary Care Nurse Name: Marianna Cruz RN Position: [facility] RN Member Role: Primary Care Nurse Care Team Related Persons Name: RACHELLE HERNANDEZ Address: home [address] [place] [address] Name: YANCI DELAROSA Address: [place] [address]
--- OUTSIDE RECORDS SUMMARY | 2024-04-15 21:58 | XMS_ITS | Continuity of Care Document ---
Author Organization [facility] ancer Care Address [address] [place] [address]- Care Team Providers Care Edge Bander Operator Name Role Phone Genie Moran MD Primary Care Physician [phone] [place] [facility] [place] 11/05/23 - 12/05/23 [facility] [address] [place] [id number] Attending Physician: Admtr, Sree8 Admitting Physician: Admtr, Ar8 Referring Physician: Admtr, [...] tablet, 1 Refills, Maintenance, 07/28/23 13:24:00 EST, [facility], Partial fill upon patient request [...] tablet, 3 Refills, Maintenance, 02/11/23 10:41:00 EDT, [facility]/pharm[facility]#[id number], 164.3, cm, 02/11/23 9:42:00 EDT, Height, 57.7, [...] 1 Refills, Maintenance, 05/09/22 9:02:00 EST, Suspension, [facility]/pharmacy #[id number], Partial fill upon patient request if [...] Team Personnel Name: Genie Moran MD Position: [facility] Outreach Member Role: PCP Address: Address: [address] [place] [address] [address] [place] [address]- [place] Name: Marianna Kinsey RN Position: [facility] RN Member Role: Primary Care Nurse Name: Esther Blackburn RN Position: [facility] RN Member Role: Primary Care Nurse Name: Tana Schaefer NP Position: [facility] PCO Associate Professional Member Role: Primary Care Nurse Address: Address: [address] [place] [address]- [place] Name: Karyn Sweeney RN Position: [facility] SN RN Member Role: Primary Care Nurse Name: Matheus Nieves RN Position: [facility] RN Member Role: Primary Care Nurse Care Team Related Persons Name: CLAUDINE ELIZABETH Address: [address] [place] [address] Name: RACHELLE DELAROSA Address: [address] [place] [address]
--- OUTSIDE RECORDS SUMMARY | 2024-04-15 21:58 | XMS_ITS | Continuity of Care Document ---
Author Organization [facility] an[facility] Address [address] [place] [address]- Care Team Providers Care Supervisor Fur Dressing Name Role Phone Luisa GLASER, Genie Timmons Primary Care Physician [place] [facility] [place] 09/21/22 - 01/12/23 [facility] [address] [place] [address]- Discharge Disposition: A-D/C Home Attending Physician: Placido Wheeler DO Admitting Physician: Asher Crespo MD Referring Physician: Genie Moran MD Allergies, Adverse Reactions, Alerts Substance Reaction Severity Status Other Food Allergy 1 Active 1sunflower seeds throat swells up Medications anastrozole 1 mg oral tablet 1 tablet, By Mouth, Daily, # 30 tablet, 2 Refills, Maintenance, 10/10/22 10:34:00 EDT, [id number], 164.3, cm, 08/10/22 14:55:00 EDT, Height, 58.3, kg, 08/10/22 14:55:00 EDT, Dry Weight Start Date: 10/10/22 Status: Ordered Carafate Tablet 1 Gm, By Mouth, 3 times a day before meals and bedtime, Maintenance, 06/22/13 16:22:33 Start Date: 06/22/13 Status: Ordered exemestane 25 mg oral tablet 1 tablet, By Mouth, Daily, # 30 tablet, 11 Refills, Maintenance, 09/16/22 9:37:00 EDT, [id number], 164.3, cm, 08/10/22 14:55:00 EDT, Height, 58.3, [...] 1 Refills, Maintenance, 05/09/22 9:02:00 EST, Suspension, [facility]/pharmacy #[id number], Partial fill upon patient request [...] oldest [Reference Range]: 1 Height 164.3 cm (11/12/22 9:47 AM) Weight 58.3 kg (11/12/22 9:47 AM) Oxygen Saturation [94-100 %] 99 % (11/12/22 9:47 AM) Pulse Rate [55-90 bpm] 84 bpm (11/12/22 9:47 AM) Body Mass Index [18.5-24.99 kg/m2] 21.6 kg/m2 (11/12/22 9:47 AM) Blood Pressure [90-138/55-84 mm Hg] 110/ 76mm Hg (11/12/22 9:47 AM) Temperature [96.8-100.4 DegF] 97.7 DegF (11/12/22 9:47 AM) Blood pressure sites Arm, right (11/12/22 9:47 AM) Temperature Route Oral (11/12/22 9:47 AM) Dry Weight 58.3 kg (11/12/22 9:47 AM) Social History Social History Type Response Smoking Status Never smoker entered on: 08/31/13 Sex Note * Sujatha Alonso: PERFORM, SIGN, VERIFY Event Display: Patient Education/Instruction Authored Date: [id number] [facility] *Heme/Onc Adult Clinical Summary Name NADYA DELAROSA Age 67 Years 1955 PCP Genie Moran MD PCP Visit Date 09/21/2022 11:31:00 Additional Instructions: Scheduled Appointments?? Future Appointments ?[facility] ?[address],??[place],??[address] ?Phone:??[phone]?Fax:??-- ?Appt. Date:??11/12/2022?3:30 PM ?Scheduled Provider:??[facility] BD Rm 1 ?*[facility] [address],??[place],??[address] ?Phone:??--?Fax:??-- ?Appt. Date:??11/27/2022?3:00 PM ?Scheduled Provider:??Jorge Staples MD Follow-Up Instructions ?? With: Address: When: Placido Wheeler [address] [place] [address] [place] [address] Business (1) In 13 weeks 02/11/2023 Diagnosis Medications: Please continue your medications until treatment is completed or stopped by your provider. Discuss any questions related to medications with your provider. Medications to Continue Taking That Have Changed These medications were not printed or sent to your pharmacy - Anastrozole (anastrozole 1 mg oral tablet) 1 tab(s) Oral Daily. Refills: 2. Next Dose: Medications to Continue with No Changes These medications were not printed or sent to your pharmacy Albuterol (ProAir HFA) 2 puff(s) Inhalation every 6 hours as needed Wheezing/Shortness of Breath. Next Dose: Exemestane (exemestane 25 mg oral tablet) 1 tab(s) Oral Daily. Refills: 11. Next Dose: Ferrous Fumarate (ferrous fumarate 300 mg oral tablet) 1 tab(s) Oral Daily. Refills: 0. Next Dose: Mometasone Topical (mometasone 0.1% topical cream) 1 application Topically BID; apply a thin film. Refills: 2. Next Dose: Omeprazole (omeprazole 40 mg oral enteric coated capsule) 1 capsule Oral twice a day. Refills: 1. Next Dose: Sucralfate (Carafate Tablet) 1 gram Oral 3 times a day before meals and bedtime. Next Dose: Allergy Info:?? Other Food Allergy Medications Given This Visit Future Orders ?No future orders Vital Signs Height 164.3 cm Weight 58.3 kg BMI 21.6 kg/m2 Blood Pressure 110 mm Hg/76 mm Hg Temperature 97.7 DegF Pulse Rate 84 bpm Respiratory Rate 02 Sat Mode of Delivery 99 %/ You can now view a summary of your hospital visit from the comfort of your home through a free online portal called [employer]. [employer] is a website that allows you to securely view your medical information including discharge summary, medications and follow-up visits. ??You can alsosend a secure electronic message to your doctor???s office to request appointments, renew medications or just ask a question. You can enroll at [email or web address] or register during your next office visit. Disclaimer:?? The information provided is of a general nature and is intended to be used in conjunction with the recommendations and advice of your health care practitioner. ??Every effort has been made to ensure that the information provided is accurate and complete at the time it is provided to you however, as your needs change, or, as new ??information becomes available, different or additional instructions may be required. If you have questions, please consult with your primary care provider or pharmacist, as appropriate. ??This information is not intended to serve as substitution for assessment and evaluation by a qualified health care provider. If you do not have a primary care provider, you may find a [facility] provider by calling [facility] at [phone]. For information about the plan of care including goals and instructions for your diagnosis, please see the patient education orders section of this document. Patient Education Materials?? The content of this educational material or handout may have been modified, supplemented, or adapted from its original content and format to support your individualized medical care. Patient Care team information Care Team Personnel Name: Genie Moran MD Position: [facility] Outreach Member Role: PCP Address: Address: [address] [place] [address]- Name: Tana Schaefer NP Position: [facility] PCO Associate Professional Member Role: Primary Care Nurse Address: Address: [address] [place] [address]- Name: Karyn Sweeney RN Position: [facility] SN RN Member Role: Primary Care Nurse Name: Marianna Cruz RN Position: S RN Member Role: Primary Care Nurse Care Team Related Persons Name: CLAUDINE ELIZABETH Name: RACHELLE HERNANDEZ Address: [address] [address]
--- OUTSIDE RECORDS SUMMARY | 2024-04-15 21:58 | XMS_ITS | Continuity of Care Document ---
Author Organization [facility] Marni niurka Address [address] [place], [place] [address]i ve [address] [place] [address]- Care Team Providers Care Export Agent Name Role Phone Genie Moran MD Primary Care Physician Encounter [facility] [place] Date(s): 04/06/22 - 04/13/22 [facility] [address] [place], [place] [address] Attending Physician: Mariama Serrato Allergies, Adverse Reactions, [...] oldest [Reference Range]: 1 Height 163 cm (04/06/22 10:09 AM) Social History Social History Type Response Smoking Status Never smoker entered on: 08/31/13 Sex Patient Care team information Care Team Personnel Name: Genie Moran MD Position: [facility] Outreach Member Role: PCP Address: Address: [address] [place] [address] [address] [place] [address]- Name: Tana Schaefer NP Position: [facility] PCO Associate Professional Member Role: Primary Care Nurse Address: Address: [address] [place] [address]- Name: Karyn Sweeney RN Position: [facility] SN RN Member Role: Primary Care Nurse Name: Marianna Cruz RN Position: S RN Member Role: Primary Care Nurse Care Team Related Persons Name: MARY DONGCAROLINE Address: home [address] [place] [address] Name: YANCI DELAROSA Address: [place] [address]
--- OUTSIDE RECORDS SUMMARY | 2024-04-15 21:58 | XMS_ITS | Continuity of Care Document ---
Author Organization [facility] Address Unknown Care Team Providers Care Commercial Shrimping Captain Name Role Phone Genie Moran MD Primary Care Physician [place] [facility] [place] [id number] Date(s): 12/11/20 - 01/10/21 [facility] Attending Physician: Ira Weiss Admitting Physician: AdmtrIra Referring Physician: Admtr, Ar8 Allergies, Adverse Reactions, [...]
--- OUTSIDE RECORDS SUMMARY | 2024-04-15 21:58 | XMS_ITS | Continuity of Care Document ---
Author Organization [facility] ancer Care Address [address] [place] [address]- Care Team Providers Care Pipe Bowl Paint Trimmer Name Role Phone Genie Moran MD Primary Care Physician Encounter [facility] Date(s): 07/08/22 - 09/21/22 [facility] [address] [place] [address] Discharge Disposition: A-D/C Home Attending Physician: Placido Wheeler DO Admitting Physician: Asher Crespo MD Referring Physician: Genie Moran MD Allergies, Adverse Reactions, Alerts Substance Reaction Severity Status Other Food Allergy 1 Active 1sunflower seeds throat swells up Medications anastrozole 1 mg oral tablet 1 tablet = 1 mg, By Mouth, Daily, # 30 tablet, 2 Refills, Maintenance, 03/31/22 12:12:00 EST, Tablet, [id number], Partial fill upon patient request if the [...] tablet, 11 Refills, Maintenance, 09/16/22 9:37:00 EDT, [id number], 164.3, cm, 08/10/22 14:55:00 EDT, Height, 58.3, kg, 08/10/22 14:55:00 EDT, Dry Weight Start Date: 09/16/22 Status: Ordered ferrous fumarate 300 mg oral tablet 1 tablet = 300 mg, By Mouth, Daily, # 30 tablet, 0 Refills, Maintenance, 05/09/22 9:00:00 EST, Tablet, Partial fill upon patient request if the prescription is for a schedule II opioid drug. Start Date: 05/09/22 Status: Ordered mometasone 0.1% topical cream See Instructions, 1 application Topically BID; apply a thin film, # 45 Gm, 2 Refills, Acute 11/18/22 14:00:00 EDT, 08/17/22 14:00:00 EDT, Cream, [facility] #[id number], Partial fill upon patient request if the prescription is for a schedule II opioid lon... Start Date: 08/17/22 Stop Date: 11/18/22 Status: Ordered omeprazole 40 mg oral enteric coated capsule 1 capsule = 40 mg, By Mouth, 2 times a day, # 60 capsule, 1 Refills, Maintenance, 05/09/22 9:02:00 EST, Suspension, [facility]/pharmacy #[id number], Partial fill upon [...] Condition Confirmation Course Effective Dates Status H ealt Status Informant Achalasia Confirmed Active Asthma Confirmed Active Cholecystectomy Confirmed Active Family history of breast cancer Confirmed Active H/O: GI Bleed Confirmed Active History of fundoplication Confirmed Active Cancer of central portion of left female breast Confirmed 11/2021 Active Migraine Confirmed Active Myotomy Confirmed Active Vital Signs Most recent to oldest [Reference Range]: 1 2 Height 164.3 cm (08/10/22 2:55 PM) 164.3 cm (07/08/22 11:28 AM) Weight 58.3 kg (08/10/22 2:55 PM) 60.6 kg (07/08/22 11:28 AM) Oxygen Saturation [94-100 %] 100 % (08/10/22 2:55 PM) 100 % (07/08/22 11:28 AM) Pulse Rate [55-90 bpm] 72 bpm (08/10/22 2:55 PM) 70 bpm (07/08/22 11:28 AM) Body Mass Index [18.5-24.99 kg/m2] 21.6 kg/m2 (08/10/22 2:55 PM) 22.45 kg/m2 (07/08/22 11:28 AM) Blood Pressure [90-138/55-84 mm Hg] 141/ 77mm Hg *H* (08/10/22 2:55 PM) 138/85mm Hg (07/08/22 11:28 AM) Temperature [96.8-100.4 DegF] 97.7 DegF (08/10/22 2:55 PM) 98.4 DegF (07/08/22 11:28 AM) Mode of Delivery (Oxygen) Room air (08/10/22 2:55 PM) Blood pressure sites Arm, left (08/10/22 2:55 PM) Arm, right (07/08/22 11:28 AM) Temperature Route Temporal (08/10/22 2:55 PM) Oral (07/08/22 11:28 AM) Dry Weight 58.3 kg (08/10/22 2:55 PM) 60.6 kg (07/08/22 11:28 AM) Weight Obtained Via Standing scale (08/10/22 2:55 PM) Standing scale (07/08/22 11:28 AM) Dry Weight Obtained Via Standing scale (08/10/22 2:55 PM) Standing scale (07/08/22 11:28 AM) Social History Social History Type Response Smoking Status Never smoker entered on: 08/31/13 Sex Note * Virginia Grey MA: PERFORM, SIGN, VERIFY Event Display: Patient Education/Instruction Authored Date: [id number] [facility] *Heme/Onc Adult Clinical Summary Name NADYA DELAROSA Age 66 Years 1955 PCP Luisa GLASER, Genie Timmons PCP Visit Date 07/08/2022 08:53:00 Additional Instructions: Scheduled Appointments?? Future Appointments ?[facility] ?[address]??[place],??[place],??[address] ?Phone:??[phone]?Fax:??-- ?Appt. Date:??09/03/2022?11:30 AM ?Scheduled Provider:??[facility] 1 Follow-Up Instructions ?? With: Address: When: Placido Wheeler [address] [place] [address]/[place] [address] [facility] () 11/12/2022 9:45 AM Diagnosis Medications: Please continue your medications until treatment is completed or stopped by your provider. Discuss any questions related to medications with your provider. Medications to Continue with No Changes These medications were not printed or sent to your pharmacy Albuterol (ProAir HFA) 2 puff(s) Inhalation every 6 hours as needed Wheezing/Shortness of Breath. Next Dose: Anastrozole (anastrozole 1 mg oral tablet) 1 tab(s) Oral Daily. Refills: 2. Next Dose: Ferrous Fumarate (ferrous fumarate 300 mg oral tablet) 1 tab(s) Oral Daily. Refills: 0. Next Dose: Omeprazole (omeprazole 40 mg oral enteric coated capsule) 1 capsule Oral twice a day. Refills: 1. Next Dose: Sucralfate (Carafate Tablet) 1 gram Oral 3 times a day before meals and bedtime. Next Dose: No Longer Take the Following Medications Acetaminophen (acetaminophen 500 mg oral tablet) TAKE 1 TABLET BY MOUTH EVERY 6 HOURS NEEDED FORPAIN *NO MORE THAN 4 TABS A DAY. Cyclobenzaprine (cyclobenzaprine 10 mg oral tablet) PLEASE SEE ATTACHED FOR DETAILED DIRECTIONS. Ibuprofen (ibuprofen 600 mg oral tablet) TAKE 1 TABLET BY MOUTH EVERY 6 HOURS ALTERNATING WITH TYLENOL. Allergy Info:?? Other Food Allergy Medications Given This Visit Future Orders ?No future orders Vital Signs Height 164.3 cm Weight 58.3 kg BMI 21.6 kg/m2 Blood Pressure 141 mm Hg/77 mm Hg Temperature 97.7 DegF Pulse Rate 72 bpm Respiratory Rate 02 Sat Mode of Delivery 100 %/Room air You can now view a summary of your hospital visit from the comfort of your home through a free online portal called Jibbigo. Jibbigo is a website that allows you to securely view your medical information including discharge summary, medications and follow-up visits. ??You can alsosend a secure electronic message to your doctor???s office to request appointments, renew medications or just ask a question. You can enroll at [email or web address] or register during your next office visit. [...] primary care provider, you may find a [facility] provider by calling [facility] Or[employer]ense Link at [phone]. For information about the plan of care [...] Team Personnel Name: Genie Moran MD Position: [facility] Outreach Member Role: PCP Address: Address: [address] [place] [address]- Name: [employer] SERVICES MANAGER, Tana Johnson Position: [facility] PCO Associate Professional Member Role: Primary Care Nurse Address: Address: [address] [place] [address]- Name: Karyn Sweeney RN Position: [facility] SN RN Member Role: Primary Care Nurse Name: Marianna Cruz RN Position: [facility] RN Member Role: Primary Care Nurse Care Team Related Persons Name: MARY DONGCAROLINE Address: home [address] [place] [address] Name: YANCI DELAROSA Address: [place] [address]
--- OUTSIDE RECORDS SUMMARY | 2024-04-15 21:58 | XMS_ITS | Continuity of Care Document ---
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 Care [address] [place] [id number] Allergies, Adverse Reactions, Alerts Substance Reaction Severity [...] Refills, Maintenance, 05/09/22 9:02:00 EST, Suspension, [id number], Partial fill upon patient request if the [...] Personnel Name: Genie Moran MD Position: [facility] Outreach Member Role: PCP Address: Address: [address] [place] [address] [address] [place] [address]- Name: Marianna Kinsey RN Position: [facility] RN Member Role: Primary Care Nurse Name: Tana Schaefer NP Position: [facility] PCO Associate Professional Member Role: Primary Care Nurse Address: Address: [address] [place] [address]- Name: Karyn Sweeney RN Position: [facility] SN RN Member Role: Primary Care Nurse Care Team Related Persons Name: CLAUDINE ELIZABETH Name: RACHELLE HERNANDEZ Address: home [address] [place] [address]
--- OUTSIDE RECORDS SUMMARY | 2024-04-15 21:58 | XMS_ITS | Continuity of Care Document ---
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 Name Role Phone Genie Moran MD Primary Care Physician [phone] Encounter [facility] Date(s): 03/01/23 - 05/06/[address] [address]- Attending Physician: Placido Wheeler DO Admitting Physician: Placido Wheeler DO Referring Physician: Placido Wheeler DO Allergies, Adverse Reactions, Alerts Substance Reaction Severity [...] Team Personnel Name: Genie Moran MD Position: [facility] Outreach Member Role: PCP Address: Address: [address] [place] [address]- Name: Marianna Kinsey RN Position: [facility] RN Member Role: Primary Care Nurse Name: Tana Schaefer NP Position: [facility] PCO Associate Professional Member Role: Primary Care Nurse Address: Address: [address] [place] [address]- Name: Karyn Sweeney RN Position: [facility] SN RN Member Role: Primary Care Nurse Care Team Related Persons Name: CLAUDINE ELIZABETH Name: RACHELLE HERNANDEZ Address: home [address] [place] [address]
--- OUTSIDE RECORDS SUMMARY | 2024-04-15 21:58 | XMS_ITS | Continuity of Care Document ---
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 Name Role Phone Genie Moran MD Primary Care Physician Encounter [facility] Date(s): 01/27/22 - 02/26/22 [facility] [address] [place], [place] [address] Attending Physician: Ira Weiss Admitting Physician: AdmIra gonzalez Referring Physician: AdmtrIra Allergies, Adverse Reactions, Alerts Substance Reaction Severity [...] Date: 06/06/15 Stop Date: 06/11/15 Status: Ordered lidocaine 4% topical cream 1 application, Topically, Once, Apply to nipple areola 1 hour before arriving for surgery, cover with saran wrap., # 5 Gm, 0 Refills, Soft Stop, 01/13/22 11:08:00 EDTMariann, [facility]/pharm[facility] #[id number], Partial fill upon patient request if the [...] Sex Patient Care team information Personnel Name: Luisa GLASER, Genie Timmons Address: Address: [address] [place] [address] [address] [place] [address]
--- OUTSIDE RECORDS SUMMARY | 2024-04-15 21:58 | XMS_ITS | Continuity of Care Document ---
Author Organization [facility] Address [address] [place] [address]- Care Team Providers Care Synthetic Cloth Binding Cutter Name Role Phone Luisa GLASER, Genie Timmons Primary Care Physician Encounter [facility] [id number] Date(s): 05/11/22 - 06/10/[address] [address] Attending Physician: Ira Weiss Admitting Physician: Ira Weiss Referring Physician: AdmtrIra Allergies, Adverse Reactions, Alerts [...] Refills, Maintenance, 03/31/22 12:12:00 EST, Tablet, [id number], Partial fill upon patient request if the [...] Team Personnel Name: Genie Moran MD Position: [facility] Outreach Member Role: PCP Address: Address: [address] [place] [address] [address] [place] [address]- Name: Tana Schaefer NP Position: [facility] PCO Associate Professional Member Role: Primary Care Nurse Address: Address: [address] [place] [address]- [place] Name: Karyn Sweeney RN Position: [facility] RN Member Role: Primary Care Nurse Name: Marianna Cruz RN Position: [facility] RN Member Role: Primary Care Nurse Care Team Related Persons Name: RACHELLE HERNANDEZ Address: home [address] [place] [address] Name: YANCI DELAROSA Address: [place] [address]
--- OUTSIDE RECORDS SUMMARY | 2024-04-15 21:58 | XMS_ITS | Continuity of Care Document ---
Author Organization [facility] Address [address] [place] [id number]- Care Team Providers Care Manager Of Recruiting Name Role Phone Luisa GLASER, Genie Timmons Primary Care Physician Encounter [facility] [place] Date(s): 07/27/23 - 07/28/[address] [address]- Discharge Disposition: A-D/C Home Attending Physician: Perlita Clarke MD Admitting Physician: Estevan Stallworth MD Referring Physician: Not on Staff, Referring MD Allergies, Adverse Reactions, Alerts Substance Reaction [...] tablet, 1 Refills, Maintenance, 07/28/23 13:24:00 EST, [facility], Partial fill upon patient [...] Status: Ordered cyclobenzaprine 10 mg oral tablet 10 mg, Tablet, By Mouth, 3 times a day, PRN for Spasm, Routine, 07/26/23 14:23:00 EST Start Date: 07/26/23 Stop Date: 07/29/23 Status: Discontinued exemestane 25 mg oral tablet 1 tablet, By Mouth, Daily, # 90 tablet, 3 Refills, Maintenance, 02/11/23 10:41:00 EDT, [facility]/pharmacy#[id number], 164.3, cm, 02/11/23 9:42:00 EDT, Height, 57.7, [...] opioid drug. Start Date: 05/09/22 Status: Ordered MiraLax oral powder for reconstitution = 17 Gm, By Mouth, Daily, for 14 days, dissolve in 4 to 8 oz of beverage, # 238 Gm, 0 Refills, Acute 08/11/23 13:06:00 EDT, 07/28/23 13:06:00 EST, REC Powder, [facility], Partial fill upon patient request if the prescription is for a leeanne... Start Date: 07/28/23 Stop Date: 08/11/23 Status: Ordered omeprazole 40 mg oral enteric coated capsule 1 capsule = 40 mg, By Mouth, 2 times a day, # 60 capsule, 1 Refills, Maintenance, 05/09/22 9:02:00 EST, Suspension, [facility]/pharmacy #[id number], Partial fill upon patient request if [...] in female, estrogen receptor positive Confirmed Active Procedures Procedure Date Related Diagnosis Body Site Status Cholecystectomy Completed Results Radiology Reports * Exam Date Time Procedure Performing Provider Status 07/26/23 5:[address] Abdomen and Pelvi s W/O Contrast Daphne Carvalho; Auth (Verified) Notes: (CT Abdomen and Pelvis W/O Contrast) Reason For Exam: Flank pain, kidney stone suspected;Other: RESULT: CT Abdomen and Pelvis W/O Contrast CT Abdomen and Pelvis W/O Contrast Hx of Present Illness: neck pain, abd swelling and left arm swelling; Reason: Flank pain, kidney stone suspected; Clinical Question(s): Calculus; Right Side flank TECHNIQUE: Spiral CT through the abdomen and pelvis without IV contrast formatted in 3 planes. The study was performed without oral contrast. Weight- based protocol using automatic tube modulation wasused to optimize exposure parameters. CTDIvol Body: 10.70 mGy, DLP Body: 481 mGy*cm. COMPARISON: CT abdomen and pelvis with contrast 02/12/2023. FINDINGS: Information Technology Architect View Findings, Lines and Tubes: None. Visualized Chest: Bilateral left greater than right small pleural effusions and associated atelectasis, increased from the prior exam. The heart is normal in size. Trace pericardial effusion. Diaphragm: Unremarkable. Liver: Normal. Gallbladder: Absent consistent with prior cholecystectomy. Bile ducts: Unchanged intra and extrahepatic biliary ductal dilation with maximal extrahepatic ductal dilation measuring up to 2.1 cm with distal tapering. No evidence of choledocholithiasis. Spleen: Normal. Pancreas: Overall unchanged pancreatic cystic lesions suboptimally evaluated secondary to lack of contrast enhancement. No new ductal dilation. Adrenal Glands: Normal. Kidneys and Ureters: Unchanged bilateral parapelvic cysts. No evidence of hydronephrosis. Unchangedleft lower pole 3 mm nonobstructing stone and tiny right upper pole nonobstructing stone. Bladder: Decompressed. Stomach, Small bowel and Large Bowel: Unchanged large type III paraesophageal hernia otherwise the stomach appears unchanged. Small bowel is of normal course and caliber. Moderate colonic stool burden. No evidence of bowel obstruction. Appendix: Not seen, but no evidence of appendicitis. Peritoneum, omentum and mesentery: Minimal ascites along the bilateral paracolic gutters and withinthe pelvis. No pneumoperitoneum. No omental or mesenteric lesions. Lymph nodes: No pathologically enlarged lymph nodes. Blood vessels: Moderate atherosclerotic vascular calcification. No aortic aneurysm. Abdominal and pelvic wall: Moderate diffuse soft tissue anasarca. Unchanged moderate fat-containingepigastric hernia. There is a also a high-density surgical clip within the hernia. Reproductive organs: Unremarkable. Bones: No acute abnormality. Moderate multilevel degenerative changes of the spine. IMPRESSION: 1. Unchanged bilateral nonobstructing stones. No evidence of hydronephrosis bilaterally. 2. Features of volume overload including bilateral small pleural effusions, trace pericardial effusion, minimal abdominal ascites and diffuse soft tissue anasarca. 3. Unchanged biliary ductal dilation without CT evidence of choledocholithiasis. 4. Overall unchanged pancreatic cystic lesions, suboptimally evaluated on this noncontrast enhancedtechnique. Recommend additional follow-up with MRCP. 5. Additional chronic findings as above. Wet read provided via [facility] by Dr. Donnelly on 07/26/2023 5:40 AM. I have personally reviewed the images and I agree with this report. WSN: [id number] Ordering Physician: Rebecca Dowell Dictated By: Yogesh Donnelly DO Dictated Date/Time: 07/26/23 8:04 am Reviewed By: Kalia Ng MD Signed By: Kalia Ng MD Signed Date/Time: 07/26/23 8:09 am Transcribed By: NORMA Transcribed Date/Time: 07/26/23 5:40 am Vital Signs Most recent to oldest [Reference Range]: 1 2 3 Oxygen Saturation [94-100 %] 96 % (07/28/23 4:51 AM) 95 % (07/28/23 12:03 AM) 95 % (07/27/23 7:40 PM) Pulse Rate [55-90 bpm] 73 bpm (07/28/23 4:51 AM) 67 bpm (07/28/23 12:03 AM) 78 bpm (07/27/23 7:40 PM) Blood Pressure [90-138/55-84 mm Hg] 145/73mm Hg *H* (07/28/23 4:51 AM) 137/65mm Hg (07/28/23 12:03 AM) 139/73mm Hg *H* (07/27/23 7:40 PM) Respiratory Rate [16-30 br/min] 18 br/min (07/28/23 4:51 AM) 18 br/min (07/28/23 12:03 AM) 18 br/min (07/27/23 8:21 PM) Temperature [96.8-100.4 DegF] 98.0 DegF (07/28/23 4:51 AM) 97.2 DegF (07/28/23 12:03 AM) 98.7 DegF (07/27/23 7:40 PM) Mode of Delivery (Oxygen) Room air (07/28/23 4:51 AM) Room air (07/28/23 12:03 AM) Room air (07/27/23 7:40 PM) Blood pressure sites Arm, right (07/28/23 4:51 AM) Arm, right (07/28/23 12:03 AM) Arm, right (07/27/23 7:40 PM) Temperature Route Oral (07/28/23 4:51 AM) Oral (07/28/23 12:03 AM) Oral (07/27/23 7:40 PM) Social History Social History Type Response Smoking Status Never smoker entered on: 08/31/13 Sex Admission evaluation note * Sushma DANIEL, Yudi Tejada: PERFORM Event Display: Admission Note Authored Date: [id number] Patient: ??NADYA DELAROSA ? Age:??67 Years?Sex:??Female?:??1955?? Chief Complaint/Reason for Consultation Neck and shoulder pain x 4 days, diffuse edema x 4 days, shortness of breath since last night History of Present Illness Ms. Delarosa is a??67-year-old female with past medical history of breast cancer, osteoporosis, asthma, iron deficiency anemia, dysphagia, pancreatic cyst, who presents to the emergency department complaining of diffuse body swelling and neck and shoulder pain for about 4 to 5 days, and shortness ofbreath that began last night.?? Patient reports that she has had similar neck and back pain last year, which was treated with muscle relaxants.?? She also states that she had body swelling and abdomen distention like this when she was being treated for breast cancer.?? Additionally, she became short of breath last night, which prompted her to come to the ED.?? She reports that she has gained 20 pounds in the past week.?? On arrival in the emergency department, she was hypertensive with blood pressure 168/95.?? Laboratory studies showed anemia with H&H 6.7/25.7.?? Protein is low, 5.0, albumin is low, 3.1.?? BNP is elevated, 533.?? CT of the abdomen pelvis was obtained which showed evidence of volume overload including small pleural effusions, trace pericardial effusion, minimal abdominal ascites and diffuse soft tissue anasarca.?? Of note, patient has a history of iron deficiency anemia, but does not take her oral iron supplements??due to constipation. ??She also??has a poor diet,??reports that she does not usually eat full meals,??and does not eat very much meat??due to her achal stephany/dysphagia. ??1 unit PBC was ordered in the ED for her anemia.?? Decision was made to admit formanagement and anasarca workup. Review of Systems General:??Endorses lightheadedness, weakness, poor appetite, and weight gain HEENT:??Endorses headache,??denies runny nose, sore throat Cardiac:?? Denies chest pain, endorses occasional palpitations Respiratory:??Endorses SOB, denies cough Abdomen:??Endorses nausea??and abdominal distention, denies??vomiting, abdominal pain, diarrhea, orconstipation :?? Denies hematuria or dysuria Skin:?? Denies rashes or wounds Objective ? Vital Signs?? Temperature: 98 DegF (07/26/23 11:56:00) Temperature Route: Oral (07/26/23 11:56:00) Pulse Rate: 64 bpm (07/26/23 11:56:00) Respiratory Rate: 20 br/min (07/26/23 11:56:00) Vented: No (07/26/23 10:54:00) Systolic Blood Pressure:??161 mm Hg??High (07/26/23 11:56:00) Diastolic Blood Pressure: 69 mm Hg (07/26/23 11:56:00) Blood pressure sites: Arm, right (07/26/23 11:56:00) Mean Arterial Pressure: 100 mm Hg (07/26/23 11:56:00) Pulse Pressure: 92 mm Hg (07/26/23 11:56:00) Oxygen Saturation: 100 % (07/26/23 11:56:00) Mode of Delivery (Oxygen): Room air (07/26/23 11:56:00) Early Warning Score: 0 (07/26/23 11:56:59) ? Intake/Output? 07/25 03:48 07/25 07:00 07/24 07:00 07/23 07:00 0301 07:00 ?? 07/25 14:46 07/25 14:46 07/25 06:59 03 06:59 03 06:59 Intake ?275 ?275 ?0 ?0 ?0 Output ?0 ?0 ?0 ?0 ?0 Net Total ?275 ?275 ?0 ?0 ?0 ? Precautions No Precautions documented.? Physical Exam Physical Exam: General: No apparent distress, appears stated age, awake, alert, cooperative with exam Head/Neck/Throat: Normocephalic, atraumatic, moist mucous membranes Eyes: Sclera anicteric, EOMI Thorax: Clear to auscultation bilaterally, no respiratory distress Cardiovascular: Regular rate and rhythm, no murmurs rubs or gallops, diffuse??mild peripheral edema??in??arms and legs Abdomen: Soft, nontender, mildly distended, hypoactive bowel sounds Musculoskeletal: No gross bony deformities Skin: No rashes or wounds noted on exposed skin Neurologic: Alert and oriented x3, no focal neurological deficits, no facial droop Psychiatric: Normal affect Assessment/Plan Diagnoses 1. ??Acute on chronic anemia ??(D64.9) 2. ??Iron deficiency anemia ??(D50.9) 3. ??Anasarca ??(R60.1) 4. ??Pericardial effusion ??(I31.39) 5. ??Malnutrition ??(E46) 6. ??Achalasia ??(K22.0) 7. ??Dysphagia ??(R13.10) 8. ??Muscle spasm ??(M62.838) ?? Assessment:??67-year-old female with past medical history of breast cancer, osteoporosis, asthma, iron deficiency anemia, dysphagia, pancreatic cyst, who presents to the emergency department complaining of diffuse body swelling and neck and shoulder pain for about 4 to 5 days, and shortness of breath that began last night ?? Acute on chronic anemia (D64.9):? Iron deficiency anemia (D50.9):??Patient has a history of anemia, for which she has previously beenworked up by hematology and gastroenterology: It appears that the conclusion is that she has iron deficiency anemia, however patient does not take her iron supplements due to concern for constipationshe was given 1 unit PRBC in the emergency department There is no evidence of active bleeding, low suspicion for GI bleed Suspect that patient's low dietary iron intake, and refusal to take iron supplements, are driving her anemia -Obtain iron studies, consider giving IV iron -Nutrition consultation for recommendations for more iron rich foods, and for nutrition assessment -Trend CBC -Transfuse for hemoglobin less than 7 ?? Anasarca (R60.1):??Suspect patient's diffuse anasarca secondary to malnutrition Nutrition assessment as above Protein and albumin were low We will hold off on further IV fluids at this time ?? Pericardial effusion (I31.39):??Very mild??pericardial effusion on CT scan, suspect related to anasarca Will obtain echocardiogram??to further evaluate??pericardial effusion, and also for??assessment of potential component of heart failure given??peripheral edema, shortness of breath, elevated BNP ?? Malnutrition (E46):??Suspect patient malnourished given poor diet Nutrition assessment ordered as above ?? Achalasia (K22.0):? Dysphagia (R13.10):??Patient reports history of achalasia and dysphagia, has difficulty swallowing After discussion with patient, we will trial soft??dental??diet??here in the hospital BORDERER evaluation ordered??for??swallow eval and??further recommendations ?? Muscle spasm (M62.838):??Patient with neck and shoulder pain consistent with prior muscle spasms, at which time??Flexeril??relieved her pain -Cyclobenzaprine 10 mg every 8 hours as needed for muscle spasm ?? VTE Prophylaxis:??Pneumatic compression boots, holding off??on chemical??VTE prophylaxis??given anemia ?VTE Prophylaxis Assessment:??VTE Prophylaxis Ordered ?? Code Status:??Full code, confirmed with patient ?Order Code Status:??Code Status Ordered ?? Discharge Planning:??Pending repeat labs, nutrition assessment, have requested case management consultation??as patient likely would benefit from??outpatient services ?? I personally spent a total of??75 minutes reviewing the chart, notes, images, and labs, speakingwith nurses, examining and interviewing the patient, placing orders, reconciling medications, and documenting in the medical record. ? Histories Allergies Allergies ?(Active and Proposed Allergies Only) Other Food Allergy? (Severity: Unknown severity, Onset: Unknown) ?Comments: sunflower seeds throat swells up ? Past Medical History/Problem List Active Problems??(13) Achalasia Asthma Cancer of central portion of left female breast Cholecystectomy Family history of breast cancer H/O: GI Bleed History of fundoplication Incisional hernia Iron deficiency anemia Malignant neoplasm of overlapping sites of left breast in female, estrogen receptor positive Migraine Multiple pancreatic cysts Myotomy ? Past Surgical History EGD, laparoscopic takedown of toupet fundoplication, lysis of adhesions, redo heller myotomy: 08/24/11 Upper gastrointestinal endoscopy including esophagus, stomach, and either the duodenum and/or jejunum as appropriate; diagnostic, with or without collection of specimen(s) by brushing or washing (separate procedure): 07/22/11 Upper gastrointestinal endoscopy including esophagus, stomach, and either the duodenum and/or jejunum as appropriate; diagnostic, with or without collection of specimen(s) by brushing or washing (separate procedure): 07/20/11 Cholecystectomy ? Social History Alcohol Details:??Use: Past. Exercise Details:??Self assessment: Fair condition. ??Regular exercise: No. Home/Environment Details:??Living situation: Home/Independent. ??Lives with: Alone. Nutrition/Health Details:??Diet: Regular. ??Caffeine intake amount: none. Substance Abuse Details:??Use: Never. Tobacco Details:??Use: Never smoker. Electronic Cigarette/Vaping Details:??Electronic Cigarette Use: Never. ? Family History Father: Heart disease Aunt (Maternal): Breast cancer Cousin (Maternal Cousns): Breast cancer Sister: Atrial fibrillation Brother: Atrial fibrillation; Heart disease ? Medications Home Medications Albuterol (ProAir HFA)?2?puff(s)?Inhalation?Every 6 hours?as needed?Wheezing/Shortness of Breath Exemestane (exemestane 25 mg oral tablet)?1?tab(s)?By Mouth?Daily Ferrous Fumarate (ferrous fumarate 300 mg oral tablet)?1?tab(s)?300?Milligram?By Mouth?Daily Omeprazole (omeprazole 40 mg oral enteric coated capsule)?1?capsule?40?Milligram?By Mouth?2 times a day Sucralfate (Carafate Tablet)?1?gram?By Mouth?3 times a day before meals and bedtime ? Inpatient Medications Medications (15) Active SCHEDULED: (4) Lidocaine 5% Topical Patch (Lidocaine 5% Patch) ??1 each, Topically, Daily NaCl 0.9% Flush 3ml (NaCL 0.9% Flush) ??3 mL, IV Push, Every 8 hours Pantoprazole 40 mg EC Tablet (pantoprazole 40 mg oral delayed release tablet) ??40 mg, By Mouth, Daily Remove Patch (Remove Lidocaine Patch) ??1 each, Topically, Daily at bedtime CONTINUOUS: (0) PRN: (11) Acetaminophen 325 mg Tablet (Acetaminophen Tablet) ??650 mg, By Mouth, Every 4 hours Albuterol 90mcg/Inhalation Inhaler HFA (albuterol CFC free 90 mcg/inh inhalation aerosol) ??180 mcg2 puffs, Inhalation, Every 4 hours Cyclobenzaprine 10 mg Tablet (cyclobenzaprine 10 mg oral tablet) ??10 mg, By Mouth, 3 times a day Dextromethorphan-Guaifenesin 20 mg-200 mg/10 mL Liqu UD (Robitussin DM Liquid) ??10 mL, By Mouth, Every 4 hours Docusate Sodium 100 mg Capsule (Docusate Sodium Capsule) ??100 mg 1 capsule, By Mouth, 2 times a day Melatonin 3 mg Tablet (Melatonin Tablet) ??3 mg, By Mouth, Daily at bedtime NaCl 0.9% Flush 3ml (NaCL 0.9% Flush) ??3 mL, IV Push, Every 8 hours Polyethylene Glycol 17 Gm Powder (MiraLax Powder) ??17 Gm 1 pack/packet, By Mouth, Daily Senna Tablet ??8.6 mg 1 tablet, By Mouth, 2 times a day Simethicone 80 mg Chewable Tablet (Simethicone Tablet) ??80 mg, Chew, 3 times a day Sucralfate 1 Gm Tablet (Carafate Tablet) ??1 Gm, By Mouth, 3 times a day before meals and bedtime ? Results Recent Labs BLOOD BANK Blood Type O Positive ()?? 07/26/2023 06:10 Antibody Screen Negative ()?? 07/26/2023 06:10 RBC Unit ID [id number] ()?? 07/26/2023 07:29 RBC Available IS ()?? 07/26/2023 07:29 ?? BLOOD COUNT & DIFF WBC 5.2 k/mm3 ()?? 07/26/2023 04:39 RBC 3.70 m/mm3 (Low)?? 07/26/2023 04:39 Hgb 6.7 Gm/dL (Low)?? 07/26/2023 04:39 Hct 25.7 % (Low)?? 07/26/2023 04:39 MCV 69.5 femtoliters (Low)?? 07/26/2023 04:39 MCH 18.1 pg (Low)?? 07/26/2023 04:39 MCHC 26.1 g/dL (Low)?? 07/26/2023 04:39 Platelet Count 245 k/mm3 ()?? 07/26/2023 04:39 RDW-SD 48.6 femtoliters (High)?? 07/26/2023 04:39 MPV NOT MEASURED femtoliters ()?? 07/26/2023 04:39 Nucleated RBC (Automated) 0.0 #/100 WBC'S ()?? 07/26/2023 04:39 Abs. NRBC 0.0 k/mm3 ()?? 07/26/2023 04:39 Abs. Neut 2.9 k/mm3 ()?? 07/26/2023 04:39 Abs. Lymph 1.2 k/mm3 ()?? 07/26/2023 04:39 Abs. [place] 0.7 k/mm3 ()?? 07/26/2023 04:39 Abs. Eo 0.4 k/mm3 ()?? 07/26/2023 04:39 Abs. Baso 0.0 k/mm3 ()?? 07/26/2023 04:39 Neut % 56.1 % ()?? 07/26/2023 04:39 Lymph % 22.4 % ()?? 07/26/2023 04:39 [place] % 13.5 % (High)?? 07/26/2023 04:39 Eos % 6.8 % (High)?? 07/26/2023 04:39 Baso % 0.6 % ()?? 07/26/2023 04:39 Imm Gran 0.6 % ()?? 07/26/2023 04:39 Abs. Imm Gran 0.0 k/mm3 ()?? 07/26/2023 04:39 ?? CARDIAC Nt-Probnp 533 pg/mL (High)?? 07/26/2023 04:29 High Sensitivity Troponin (HSTnT) 13 ng/L ()?? 07/26/2023 05:53 ?? CHEM GENERAL Sodium 141 mmol/L ()?? 07/26/2023 04:29 Potassium 3.8 mmol/L ()?? 07/26/2023 04:29 Chloride 107 mmol/L ()?? 07/26/2023 04:29 Bicarbonate Level 24 mmol/L ()?? 07/26/2023 04:29 Anion Gap 10 ()?? 07/26/2023 04:29 Glucose Level 98 mg/dL ()?? 07/26/2023 04:29 BUN 8 mg/dL ()?? 07/26/2023 04:29 Creatinine-Blood 0.5 mg/dL ()?? 07/26/2023 04:29 Estimated GFR Creatinine 106 ML/MIN/1.73 M2 ()?? 07/26/2023 04:29 Calcium 8.3 mg/dL (Low)?? 07/26/2023 04:29 Protein, Total 5.0 Gm/dL (Low)?? 07/26/2023 04:29 Albumin 3.1 Gm/dL (Low)?? 07/26/2023 04:29 AG Ratio 1.6 ()?? 07/26/2023 04:29 Alkaline Phosphatase 127 units/L (High)?? 07/26/2023 04:29 AST (SGOT) 15 units/L ()?? 07/26/2023 04:29 ALT (SGPT) 9 units/L ()?? 07/26/2023 04:29 Bilirubin, Total 0.3 mg/dL ()?? 07/26/2023 04:29 ?? COAG INR 1.1 ()?? 07/26/2023 06:10 Protime (PT) 11.3 seconds ()?? 07/26/2023 06:10 APTT 25.0 seconds ()?? 07/26/2023 06:10 ?? UA/URINALYSIS Appear/Color, Urine LIGHT YELLOW ()?? 07/26/2023 05:30 Specific [place], Urine 1.015 ()?? 07/26/2023 05:30 pH, Urine 7.5 ()?? 07/26/2023 05:30 Albumin, Urine NEGATIVE ()?? 07/26/2023 05:30 Glucose, Urine NEGATIVE ()?? 07/26/2023 05:30 Ketones, Urine NEGATIVE ()?? 07/26/2023 05:30 Bilirubin, Urine NEGATIVE ()?? 07/26/2023 05:30 Hemoglobin, Urine NEGATIVE ()?? 07/26/2023 05:30 Nitrite, Urine NEGATIVE ()?? 07/26/2023 05:30 Leukocyte, Urine NEGATIVE ()?? 07/26/2023 05:30 Urobilinogen 2 mg/dL (Abnormal)?? 07/26/2023 05:30 WBC's, Urine <1 /HPF ()?? 07/26/2023 05:30 RBC's, Urine <1 /HPF ()?? 07/26/2023 05:30 Squamous Epith <1 /HPF ()?? 07/26/2023 05:30 Mucus SLIGHT /LPF ()?? 07/26/2023 05:30 Hold Urine Culture Testing available 48 hours from time of collection. ()?? 07/26/2023 05:30 ?? VIROLOGY Influenza A PCR NEGATIVE ()?? 07/26/2023 06:55 Influenza B PCR NEGATIVE ()?? 07/26/2023 06:55 RSV PCR NEGATIVE ()?? 07/26/2023 06:55 COVID-19 PCR Specimen Source NASAL ()?? 07/26/2023 06:55 COVID-19 PCR Result NEGATIVE ()?? 07/26/2023 06:55 ? Imaging(s) ?CT Abdomen and Pelvis W/O Contrast ?? 07/26/2023 05:28??by Kalia Ng MD ?IMPRESSION: ?? 1. Unchanged bilateral nonobstructing stones. No evidence of hydronephrosis bilaterally. ?? 2. Features of volume overload including bilateral small pleural effusions, trace pericardial effusion, minimal abdominal ascites and diffuse soft tissue anasarca. ?? 3. Unchanged biliary ductal dilation without CT evidence of choledocholithiasis. ?? 4. Overall unchanged pancreatic cystic lesions, suboptimally evaluated on this noncontrast enhancedtechnique. Recommend additional follow-up with MRCP. ?? 5. Additional chronic findings as above. ? Microbiology(s) ?Influenza A PCR ?? 07/26/2023 06:55 ?Influenza B PCR ?? 07/26/2023 06:55 ?RSV PCR ?? 07/26/2023 06:55 ?COVID-19 PCR Specimen Source ?? 07/26/2023 06:55 ?COVID-19 PCR Result ?? 07/26/2023 06:55 ? US Heart * Event Display: Echocardiogram - Complete Authored Date: [id number] Transthoracic Echocardiography Report (TTE) Patient Demographics Patient Name NADYA DELAROSA Date of Study 07/26/2023 Corporate Gender Female Facility Race Ethnicity Date of 1955 Height: 64.57 inches Age 67 year(s) Weight: 134.48 pounds Accession Number [id number] BSA: 1.66 m2 Room Number D320 BMI: 22.68 kg/m2 Referring Physician MD Mallory Saucedo Physician Human Resources Coordinator Jose Cabral Indications Pericardial effusion. Clinical History Pericardial effusion, breast cancer Study Data Type of Study TTE procedure:Echo Complete-(Doppler, Colorflow) with Contrast. Procedure Information:Definity was administered by Speech Therapist Early Intervention . Study Date07/26/2023 Start Time: 03:42 PM Study Location: [facility] [place] Adult Echo Study Status: Echo lab Patient Status: CAMILLA Technical Quality: Poor due to breast augmentation. Blood Pressure:163/79 mmHg EKG: Normal sinus rhythm Contrast Medium: Definity. Amount - 2 ml 2D Measurements LV Diastolic Dimension: 5.2 cm LV Systolic Dimension: 3.8 cm LV Septum Diastolic: 0.8 cm LV PW Diastolic: 0.9 cm AO Root Dimension: 3.8 cm LVOT Stroke Volume: 79.62 ml LVOT: 2.1 cm Stroke Volume Index47.96 ml/m2 Ascending Aorta:3.7 cm Doppler Measurements AV Peak Velocity: 133 cm/s MV Peak E-Wave: 57 cm/s AV Peak Gradient: 7.08 mmHg MV Peak A-Wave: 63 cm/s MV E/A Ratio: 0.9 LVOT Peak Velocity: 81.1 cm/s MV P1/2t: 85 msec LVOT VTI23 cm MV Deceleration Time: 291 msec MV Area (PHT): 2.59 cm2 E' Septal Velocity: 8.92 cm/s E' Lateral Velocity: 8.17 cm/s E/Med E':6.477996 E/Lat E':6.249024 Cardiac Anatomy Left Ventricle/Interventricular Septum Normal LV systolic function (EF 55-60%). No significant regional wall motion abnormalities. Normal LV diastolic function. Normal LV cavity size. Normal LV wall thickness. Left Atrium/Interatrial Septum Normal size LA. Aortic Valve No significant structural abnormalities of the aortic valve. No significant aortic regurgitation. No significant aortic stenosis. Mitral Valve No significant structural abnormalities of the mitral valve. No significant mitral regurgitation. Aorta Normal size aortic root. Mildly dilated ascending aorta (3.7 cm). Right Ventricle Normal RV systolic function. Normal RV size. Right Atrium Normal size RA. Pulmonic Valve Poorly visualized pulmonic valve. Tricuspid Valve No significant structural abnormalities of the tricuspid valve. No significant tricuspid regurgitation. Pumonary Artery Unable to estimate PA systolic pressure. Venous Structures Dilated IVC with blunted respiratory variation (suggesting high RAP/CVP). Pericardium/Extracardiac Small circumferential pericardial effusion. Mitral/tricuspid inflow variation was not performed, limiting ability to evaluate for cardiac tamponade (although visually, tamponade appears unlikely). Summary Normal LV systolic function (EF 55-60%). No significant regional wall motion abnormalities. Normal LV diastolic function. Normal LV cavity size. Normal LV wall thickness. Normal RV systolic function. Normal RV size. No clinically significant valvular abnormalities. Dilated IVC with blunted respiratory variation (suggesting high RAP/CVP). Small circumferential pericardial effusion. Mitral/tricuspid inflow variation was not performed, limiting ability to evaluate for cardiac tamponade (although visually, tamponade appears unlikely). Recommendation If clinical concern for cardiac tamponade, please request limited echo with mitral/tricuspid inflow assessment. Comparison No prior study available for comparison. Signature * Event Display: Echocardiogram - Complete Authored Date: Cardiology * Event Display: Cardiac Rhythm Strips Authored Date: EKG study * Event Display: EKG Authored Date: Hospital Progress note * Lauren Michelle RN: PERFORM, SIGN, VERIFY Event Display: Progress Note Hospital Authored Date: Patient: NADYA DELAROSA Age: 67 years Sex: Female : 1955 Associated Diagnoses: None Author: Lauren Michelle RN Pt A&O x4. C/O 12/31 right neck and shoulder pain. No dizziness, nausea. sob. Ambulates independently. Call light within reach. Findings Problem Related to Alteration in Tissue Perfusion : Alteration in Tissue Perfusion 07/27/2023 23:00 EST Alteration Tissue Perfusion related to Anemia Goals & Outcomes: Tissue perfusion Pt will maintain optimal perfusion to vital organs, Pt will resume/maintain adequate peripheral circulation, Pt will experience improved tissue perfusion, Pt will be hemodynamically stable Interventions: Tissue Perfusion Assess/Monitor activity tolerance, Assess/Monitor peripheral pulses& capillary refill, Assess/Monitor presence & degree of edema, Monitor Intake & Output BH Goals/Interventions, Tissue Perfusion Yes Tissue Perfusion, Problem Start 07/27/2023 7:00 Reviewed Plan with, Tissue Perfusion Patient Patient Progression, Tissue Perfusion Pt progressing according to plan . * Esther Blackburn RN: PERFORM, SIGN, VERIFY Event Display: Progress Note Hospital Authored Date: [id number] Patient: NADYA DELAROSA Age: 67 years Sex: Female : 1955 Associated Diagnoses: None Author: Esther Blackburn RN Assumed care, 0600. Alert and oriented x 4, speaking in clear sentences, able to communicate needs.VSS, slight headache, and shoulder aches. Tylenol helpful for this. Eating very small bits of meals, mostly soups. Not drinking a lot of fluid. Dietary came, order for nutrition drinks with meals. Encouraged small and frequent meals, high protein options. Encouraged small sips of fluid throughout the day, concern for volume overload, however she is also drinking minimal amounts of fluid. IV Lasixgiven, I&O's in place. HH still low, 1 unit of PRBC given, without complication. Order for repeat HH for 1899. Pneumo boots on while in bed. She is ambulating independently to restroom, however, has not voided much today. Education on measuring output now, and morning dry weight. Message to night MD for orderfor K-Pad, as she said the disposable heating packs helped her last night. Education provided tourist information officer garza use, bed in low position and locked, non-slip socks on, plan of care reviewed, and any questions answered. Findings Problem Related to Alteration in Fluid Electrolyte : Alteration in Fluid Electrolyte Func/new 07/27/2023 7:00 EST Alteration Fluid Electrolytes Related to Anemia, Fluid Volume Excess Goals & Outcomes, Fluid/Electrolyte Vital signs, electrolytes & glucose levels will stabilize, Pt will maintain adequate GI/ function appropriate for pt, Pt will resume/maintain adequate cardiac output, Pt will resume/maintain adequate hemodynamic status, Pt's fluid & RBC volume will normalize & be maintained, Pt's functional abilities will normalize, be maintained Interventions, Fluid Electrolyte monitor cardiac status, monitor dietary intake, Monitor effects ofdiuretics, monitor for onset of acute bleeding, monitor for s/s of anemia: weakness, fatigue,, Encourage oral intake of meals, snacks, supplements, Encourage oral intake/fluids as ordered, Maintain strict intake & output, Monitor & document daily weight, Assess/monitor any signs of bleeding, Assess/monitor effects of blood product administration, Assess/monitor for s/s of shock, Assess/monitor lab values affected by anemia Goals/Interventions,Fluid Electrolyte Yes Fluid Electrolyte, Problem Start 07/27/2023 7:00 Reviewed plan with, Fluid Electrolyte Patient Patient Progression, Fluid Electrolyte Plan Initiation . Alteration in Tissue Perfusion : Alteration in Tissue Perfusion 07/27/2023 7:00 EST Alteration Tissue Perfusion related to Anemia Goals & Outcomes: Tissue perfusion Pt will maintain optimal perfusion to vital organs, Pt will resume/maintain adequate peripheral circulation, Pt will experience improved tissue perfusion, Pt will be hemodynamically stable Interventions: Tissue Perfusion Assess/Monitor activity tolerance, Assess/Monitor cardiac dysrhythmias, Assess/Monitor CMS to affected extremity, Assess/Monitor mental status, Assess/Monitor peripheral pulses & capillary refill, Assess/Monitor presence & degree of edema, Assess/Monitor vital signs per unit standard & prn, Discuss discharge needs with patient case coordinator, Monitor Intake &Output, Monitor labs & report variances to provider, Physical assessment per unit standards, Position for comfort, Teach pt/caregiver on plan of care, treatment, s/s & meds Goals/Interventions, Tissue Perfusion Yes Tissue Perfusion, Problem Start 07/27/2023 7:00 Reviewed Plan with, Tissue Perfusion Patient Patient Progression, Tissue Perfusion Plan Initiation . * Refugio Perera MD: PERFORM Event Display: Progress Note Hospital Authored Date: Patient: ??NADYA DELAROSA ? Age:??67 Years?Sex:??Female?:??1955?? Subjective Patient seen and examined at bedside.?? Patient continues to complain of fatigue??and diffuse body discomfort.?? She denies any shortness of breath, chest pain, nausea or vomiting.?? Patient states that her diet??at home likely involves??soup??with chicken??and??tacos.?? Patient denies any trouble s wallowing??and admits to not taking her iron??tablets at home due to??constipation problems. Review of Systems A full review of systems was completed and is otherwise negative except as mentioned in history of present illness. Objective Vital Signs?? Temperature: 98 DegF (07/27/23 11:55:00) Temperature Route: Oral (07/27/23 11:55:00) Pulse Rate: 71 bpm (07/27/23 11:55:00) Respiratory Rate: 19 br/min (07/27/23 11:55:00) Systolic Blood Pressure: 138 mm Hg (07/27/23 11:55:00) Diastolic Blood Pressure: 62 mm Hg (07/27/23 11:55:00) Blood pressure sites: Arm, right (07/27/23 11:55:00) Mean Arterial Pressure: 87 mm Hg (07/27/23 11:55:00) Pulse Pressure: 76 mm Hg (07/27/23 11:55:00) Oxygen Saturation: 99 % (07/27/23 11:55:00) Mode of Delivery (Oxygen): Room air (07/27/23 11:55:00) Early Warning Score: 0 (07/27/23 11:55:16) ? Intake/Output? 07/26 09:21 07/26 07:00 07/25 07:00 07/24 07:00 0302 07:00 ?? 07/26 12:24 05 12:24 05 06:59 0304 06:59 0303 06:59 Intake ?275 ?0 ?275 ?0 ?0 Output ?0 ?0 ?0 ?0 ?0 Net Total ?275 ?0 ?275 ?0 ?0 ? Physical Exam General: No apparent distress, appears stated age, awake, alert, cooperative with exam Head/Neck/Throat: Normocephalic, atraumatic, moist mucous membranes Eyes: Sclera anicteric, EOMI Thorax: Clear to auscultation bilaterally, no respiratory distress Cardiovascular: Regular rate and rhythm, no murmurs rubs or gallops, diffuse??mild peripheral edema??in??arms and legs Abdomen: Soft, nontender, mildly distended, Musculoskeletal: No gross bony deformities Skin: No rashes or wounds noted on exposed skin Neurologic: Alert and oriented x3, no focal neurological deficits, no facial droop Psychiatric: Normal affect _ Inpatient Medications Medications (16) Active SCHEDULED: (5) Furosemide Inj (Lasix ??Inj) ??20 mg 2 mL, IV Push Slowly, 2 times a day Lidocaine 5% Topical Patch (Lidocaine 5% Patch) ??1 each, Topically, Daily NaCl 0.9% Flush 3ml (NaCL 0.9% Flush) ??3 mL, IV Push, Every 8 hours Pantoprazole 40 mg EC Tablet (pantoprazole 40 mg oral delayed release tablet) ??40 mg, By Mouth, 2 times a day Remove Patch (Remove Lidocaine Patch) ??1 each, Topically, Daily at bedtime CONTINUOUS: (0) PRN: (11) Acetaminophen 325 mg Tablet (Acetaminophen Tablet) ??650 mg, By Mouth, Every 4 hours Albuterol 90mcg/Inhalation Inhaler HFA (albuterol CFC free 90 mcg/inh inhalation aerosol) ??180 mcg2 puffs, Inhalation, Every 4 hours Cyclobenzaprine 10 mg Tablet (cyclobenzaprine 10 mg oral tablet) ??10 mg, By Mouth, 3 times a day Dextromethorphan-Guaifenesin 20 mg-200 mg/10 mL Liqu UD (Robitussin DM Liquid) ??10 mL, By Mouth, Every 4 hours Docusate Sodium 100 mg Capsule (Docusate Sodium Capsule) ??100 mg 1 capsule, By Mouth, 2 times a day Melatonin 3 mg Tablet (Melatonin Tablet) ??3 mg, By Mouth, Daily at bedtime NaCl 0.9% Flush 3ml (NaCL 0.9% Flush) ??3 mL, IV Push, Every 8 hours Polyethylene Glycol 17 Gm Powder (MiraLax Powder) ??17 Gm 1 pack/packet, By Mouth, Daily Senna Tablet ??8.6 mg 1 tablet, By Mouth, 2 times a day Simethicone 80 mg Chewable Tablet (Simethicone Tablet) ??80 mg, Chew, 3 times a day Sucralfate 1 Gm Tablet (Carafate Tablet) ??1 Gm, By Mouth, 3 times a day before meals and bedtime ? Results Recent Labs BLOOD BANK Blood Type O Positive ()?? 07/26/2023 06:10 Antibody Screen Negative ()?? 07/26/2023 06:10 RBC Unit ID [id number] ()?? 07/27/2023 11:23 RBC Available IS ()?? 07/27/2023 11:23 ?? BLOOD COUNT & DIFF WBC 4.8 k/mm3 ()?? 07/27/2023 00:52 RBC 3.58 m/mm3 (Low)?? 07/27/2023 00:52 Hgb 6.9 Gm/dL (Low)?? 07/27/2023 00:52 Hct 25.5 % (Low)?? 07/27/2023 00:52 MCV 71.2 femtoliters (Low)?? 07/27/2023 00:52 MCH 19.3 pg (Low)?? 07/27/2023 00:52 MCHC 27.1 g/dL (Low)?? 07/27/2023 00:52 Platelet Count 213 k/mm3 ()?? 07/27/2023 00:52 RDW-SD 48.2 femtoliters (High)?? 07/27/2023 00:52 MPV NOT MEASURED femtoliters ()?? 07/27/2023 00:52 Nucleated RBC (Automated) 0.0 #/100 WBC'S ()?? 07/27/2023 00:52 Abs. NRBC 0.0 k/mm3 ()?? 07/27/2023 00:52 Abs. Neut 2.9 k/mm3 ()?? 07/26/2023 04:39 Abs. Lymph 1.2 k/mm3 ()?? 07/26/2023 04:39 Abs. [place] 0.7 k/mm3 ()?? 07/26/2023 04:39 Abs. Eo 0.4 k/mm3 ()?? 07/26/2023 04:39 Abs. Baso 0.0 k/mm3 ()?? 07/26/2023 04:39 Neut % 56.1 % ()?? 07/26/2023 04:39 Lymph % 22.4 % ()?? 07/26/2023 04:39 [place] % 13.5 % (High)?? 07/26/2023 04:39 Eos % 6.8 % (High)?? 07/26/2023 04:39 Baso % 0.6 % ()?? 07/26/2023 04:39 Imm Gran 0.6 % ()?? 07/26/2023 04:39 Abs. Imm Gran 0.0 k/mm3 ()?? 07/26/2023 04:39 ?? CARDIAC Nt-Probnp 533 pg/mL (High)?? 07/26/2023 04:29 High Sensitivity Troponin (HSTnT) 13 ng/L ()?? 07/26/2023 05:53 ?? CHEM GENERAL Sodium 140 mmol/L ()?? 07/27/2023 00:52 Potassium 3.8 mmol/L ()?? 07/27/2023 00:52 Chloride 106 mmol/L ()?? 07/27/2023 00:52 Bicarbonate Level 29 mmol/L ()?? 07/27/2023 00:52 Anion Gap 5 ()?? 07/27/2023 00:52 Glucose Level 91 mg/dL ()?? 07/27/2023 00:52 BUN 8 mg/dL ()?? 07/27/2023 00:52 Creatinine-Blood 0.5 mg/dL ()?? 07/27/2023 00:52 Estimated GFR Creatinine 106 ML/MIN/1.73 M2 ()?? 07/27/2023 00:52 Calcium 8.3 mg/dL (Low)?? 07/27/2023 00:52 Magnesium 3.2 mg/dL (High)?? 07/27/2023 00:52 Protein, Total 5.0 Gm/dL (Low)?? 07/26/2023 04:29 Albumin 3.1 Gm/dL (Low)?? 07/26/2023 04:29 AG Ratio 1.6 ()?? 07/26/2023 04:29 Alkaline Phosphatase 127 units/L (High)?? 07/26/2023 04:29 AST (SGOT) 15 units/L ()?? 07/26/2023 04:29 ALT (SGPT) 9 units/L ()?? 07/26/2023 04:29 Bilirubin, Total 0.3 mg/dL ()?? 07/26/2023 04:29 Vitamin B12 Level 706 pg/mL ()?? 07/26/2023 04:29 Folic Acid Level 14.2 ng/mL ()?? 07/26/2023 04:29 Iron Level 12 mcg/dL (Low)?? 07/26/2023 04:29 Iron Binding Capacity, Unsaturated 311 mcg/dL ()?? 07/26/2023 04:29 Iron Binding Capacity, Estimated Total 323 mcg/dL ()?? 07/26/2023 04:29 % Iron Saturation 4 % (Low)?? 07/26/2023 04:29 Ferritin Level 4 ng/mL (Low)?? 07/26/2023 04:29 ?? COAG INR 1.1 ()?? 07/26/2023 06:10 Protime (PT) 11.3 seconds ()?? 07/26/2023 06:10 APTT 25.0 seconds ()?? 07/26/2023 06:10 ?? IMMUNOLOGY GENERAL Haptoglobin 151 mg/dL ()?? 07/26/2023 04:29 ?? UA/URINALYSIS Appear/Color, Urine LIGHT YELLOW ()?? 07/26/2023 05:30 Specific [place], Urine 1.015 ()?? 07/26/2023 05:30 pH, Urine 7.5 ()?? 07/26/2023 05:30 Albumin, Urine NEGATIVE ()?? 07/26/2023 05:30 Glucose, Urine NEGATIVE ()?? 07/26/2023 05:30 Ketones, Urine NEGATIVE ()?? 07/26/2023 05:30 Bilirubin, Urine NEGATIVE ()?? 07/26/2023 05:30 Hemoglobin, Urine NEGATIVE ()?? 07/26/2023 05:30 Nitrite, Urine NEGATIVE ()?? 07/26/2023 05:30 Leukocyte, Urine NEGATIVE ()?? 07/26/2023 05:30 Urobilinogen 2 mg/dL (Abnormal)?? 07/26/2023 05:30 WBC's, Urine <1 /HPF ()?? 07/26/2023 05:30 RBC's, Urine <1 /HPF ()?? 07/26/2023 05:30 Squamous Epith <1 /HPF ()?? 07/26/2023 05:30 Mucus SLIGHT /LPF ()?? 07/26/2023 05:30 Hold Urine Culture Testing available 48 hours from time of collection. ()?? 07/26/2023 05:30 ?? URINE OTHER Protein, Total Urine Random 15 mg/dL ()?? 07/27/2023 11:01 TP/Cr Ratio 0.10 ()?? 07/27/2023 11:01 Creatinine, Urine 144.3 mg/dL ()?? 07/27/2023 11:01 ?? VIROLOGY Influenza A PCR NEGATIVE ()?? 07/26/2023 06:55 Influenza B PCR NEGATIVE ()?? 07/26/2023 06:55 RSV PCR NEGATIVE ()?? 07/26/2023 06:55 COVID-19 PCR Specimen Source NASAL ()?? 07/26/2023 06:55 COVID-19 PCR Result NEGATIVE ()?? 07/26/2023 06:55 ? Assessment/Plan ??67-year-old female with past medical history of breast cancer, osteoporosis, asthma, iron deficiency anemia, dysphagia, pancreatic cyst, who presents to the emergency department complaining of diffuse body swelling and neck and shoulder pain for about 4 to 5 days, and shortness of breath. ??Admitted for microcytic anemia??with diffuse anasarca in setting of??possible malnutrition.?? Has been transfused??1 packs of red blood cells. ?? Acute on chronic anemia (D64.9):? Iron deficiency anemia (D50.9): Patient has a chronic history of??anemia??and has been seen by??GI and hematology outpatient. Anemia appears to be microcytic in nature and patient??was prescribed??home iron supplement which she has not been taking due to constipation. On admission she was found to have a low hemoglobin of 6.7??and was transfused 1 unit of packed redblood cells which increased her hemoglobin to 6.9. Anemia??is most likely due to??malnutrition versus chronic blood loss.She continues to have no evidence of active bleed??with no evidence of GI bleed. Iron studies showing low iron levels with low ferritin levels consistent with SARAHI.?? Will plan to transfuse patient with 1 packed red blood cell today??and reassess hemoglobin level??and consider starting patient on IV iron tomorrow. Nutrition has been consulted??regarding recommendations for iron rich food??and??nutrition assessment. ?? Plan -Transfuse 1 packed red blood cells -Daily CBC -Transfuse for hemoglobin less than 7 -Follow-up??nutrition recommendations -Consider starting intravenous iron??tomorrow ?? Pericardial effusion Mild ascites Mild??pleural effusion Malnutrition Anasarca (R60.1):?? Patient found to have??anasarca on CT scan??with mild ascites,??pleural effusion and pericardial effusion on echocardiogram yesterday Echocardiogram showing??mild pericardial effusion with??elevated??central venous pressure. Suspect patient sinus tach??may be due to malnutrition given her low albumin and total protein??andher poor diet. Patient denies any symptoms of dysphagia or trouble swallowing from her??previous??achalasia which was treated surgically. Patient to be??most likely benefit from high-protein supplementation. ??Currently awaiting nutrition recommendations. Given elevated CVP,??can also benefit from diuresis today??with fluid restriction. ?? Plan -Start 20 mg IV Lasix??twice daily -Daily weights -Daily ins and out -Follow-up nutrition recommendations -Switch to 40 mg pantoprazole twice daily ? Achalasia (K22.0):? Dysphagia (R13.10):?? On admission patient had reported??difficulty swallowing??and swallow eval was ordered and??patientwas started on the dental soft diet Currently awaiting swallow??recommendations ? Muscle spasm (M62.838):??Patient with neck and shoulder pain consistent with prior muscle spasms, at which time??Flexeril??relieved her pain -Cyclobenzaprine 10 mg every 8 hours as needed for muscle spasm ? VTE Prophylaxis:??Pneumatic compression boots, holding off??on chemical??VTE prophylaxis??given anemia Code Status:??Full code, confirmed with patient Diet: Dental soft diet Ongoing medical needs: Management of anemia and??workup and management of anasarca Dispo: Likely home ? Patient was seen and discussed with attending, Dr Clarke ?? Refugio Perera MD.? PGY 1, Internal medicine Available on??[place] text 07/27/2023 * Vince GLASER, Perlita: PERFORM Event Display: Progress Note Hospital Authored Date: [id number] Pt seen and examined at bedside , discussed the case and its management with resident, agree with documentation above. Pt still looks volume overloaded, will start on IV diuresis Transfuse PRBC X1, Iv fe tomorrow ? Note * Matheus Nieves RN: PERFORM Event Display: Discharge/Transfer Note Hospital Authored Date: [id number] Nursing Discharge Note Entered On: 07/28/2023 16:29 EST Performed On: 07/28/2023 16:28 EST by Matheus Nieves RN Nursing Discharge Note 2 Discharge Time : 07/28/2023 15:00 EST Discharge Level of Care at Discharge : Home/Prison/Foster Care Patient Left Unit Via : Wheelchair Patient Accompanied Off Unit with : Responsible adult DC Instructions Provided & Signed by Pt : Yes Patient Understands D/C Instructions : Yes Patient Instructions Discharge Signed : Yes Did Pt have Specialty Bed or Wound Vac : No Matheus Nieves RN - 07/28/2023 16:28 EST * Dilma GLASER, Refugio: PERFORM, MODIFY, MODIFY, MODIFY Event Display: Discharge/Transfer Note Hospital Authored Date: [id number] Patient: ??NADYA DELAROSA ? Age:??67 Years?Sex:??Female?:??1955?? Patient Information Discharge Location: [facility] Primary Care Physician: Genie Moran MD Admit Date/Time: 07/27/23 09:21 Discharge Disposition Discharge Disposition: Home: No Services Discharge Diagnosis Acute on chronic anemia (D64.9) Iron deficiency anemia (D50.9) Anasarca (R60.1) Pericardial effusion (I31.39) Malnutrition (E46) Achalasia (K22.0) Dysphagia (R13.10) Muscle spasm (M62.838) ?? _ Discharge Medications Albuterol (Albuterol (Eqv-Ventolin HFA) 90 mcg/inh inhalation aerosol)?2?puff(s)?Inhalation?Every 4 hours?as needed?Wheezing/Shortness of Breath Durable Medical Equipment (1.5kcal/mL oral supplement TID vanilla)?See Instructions?E44.1- Mild protein-energy malnutrition Exemestane (exemestane 25 mg oral tablet)?1?tab(s)?By Mouth?Daily Ferrous Fumarate (ferrous fumarate 300 mg oral tablet)?1?tab(s)?300?Milligram?By Mouth?Every Wednesday, and Wednesday Multivitamin With Minerals (ABC Complete Multiple Vitamins with Minerals oral tablet)?1?tab(s)?By Mouth?Daily Omeprazole (omeprazole 40 mg oral enteric coated capsule)?1?capsule?40?[place]ig[place]?By Mouth?2 times a day Polyethylene Glycol 3350 (MiraLax oral powder for reconstitution)?17?gram?By Mouth?Daily?for 14?Days?dissolve in 4 to 8 oz of beverage Sucralfate (Carafate Tablet)?1?gram?By Mouth?3 times a day before meals and bedtime ? Medications Started Durable Medical Equipment (1.5kcal/mL oral supplement TID vanilla)?See Instructions?E44.1- Mild protein-energy malnutrition Multivitamin With Minerals (ABC Complete Multiple Vitamins with Minerals oral tablet)?1?tab(s)?By Mouth?Daily Polyethylene Glycol 3350 (MiraLax oral powder for reconstitution)?17?gram?By Mouth?Daily?for 14?Days?dissolve in 4 to 8 oz of beverage Doses Changed Ferrous Fumarate (ferrous fumarate 300 mg oral tablet)?1?tab(s)?300?Millig[place]?By Mouth?Every Wednesday, and Wednesday Allergies Allergies ?(Active and Proposed Allergies Only) Other Food Allergy? (Severity: Unknown severity, Onset: Unknown) ?Comments: sunflower seeds throat swells up ? PCP Follow-Up/Heads-Up Patient was recently treated for symptomatic microcytic anemia.?? She received 2 blood transfusionswith IV iron while in the hospital.?? She was also found to be malnourished with anasarca.?? Nutrition recommended that she increases her calories and protein intake.?? She is currently being discharged with oral iron tablets to take every other day along with laxative to help with possible constipation.?? She has been educated about dietary changes to help tackle her malnutrition.?? Please ensure you get a repeat CBC??and iron studies during outpatient visit.?? Please reinforce dietary changesduring every outpatient visits.?? Patient was also found to have??mild pleural effusion and??pericardial effusion. please, ensure she gets a repeat??chest x-ray and repeat??echo outpatient. Future Appointments Wednesday 9:00 AM EDT ?? Where: [facility] Surgical Services Status: Pending 2023 10:20 AM EDT ?? With: Deyanira DANIEL, Patricia Sandhu Where: [facility] Plastic Surgery [address] [place] [id number]- Status: Pending Hospital Course 67-year-old female with past medical history of breast cancer, osteoporosis, asthma, iron deficiency anemia, dysphagia, pancreatic cyst, who presents to the emergency department complaining of diffuse body swelling and neck and shoulder pain for about 4 to 5 days, and shortness of breath.?? On admission, patient was found to be severely anemic with a hemoglobin of 6.7 and MCV of 69.5 with diffuseanasarca.?? Her labs showed that she was malnourished with low albumin low iron and low ferritin. her to her CT scan showed that she had mild ascites, small pleural effusion and mild pericardial effusion.?? She was transfused 2 units of blood with improvement in the hemoglobin and was started on intravenous iron.?? An echocardiogram was done which ruled out cardiac tamponade??but showed elevated central venous pressure.??Consequently, patient was diuresed with IV Lasix and was seen by a clinical operations specialist.?? Patient is currently back to her baseline currently asymptomatic with improvement in anasarca.?? She is currently being discharged to continue home iron supplementation with nutritional supple mentation and follow-up with her PCP in 2 weeks to reassess ?? Acute on chronic anemia (D64.9):? Iron deficiency anemia (D50.9): Patient has a chronic history of??anemia??and has been seen by??GI and hematology outpatient. Anemia appears to be microcytic in nature and patient??was prescribed??home iron supplement which she has not been taking due to constipation. On admission she was found to have a low hemoglobin of 6.7??and was transfused 1 unit of packed redblood cells which increased her hemoglobin to 6.9. Anemia??is most likely due to??malnutrition versus chronic blood loss.She continues to have no evidence of active bleed??with no evidence of GI bleed. Iron studies showing low iron levels with low ferritin levels consistent with SARAHI.?? Patient received 1 unit??of packed red blood cell yesterday??with improvement in hemoglobin. Nutrition has seen patient??and placed some dietary recommendations. ? Recommendations -continue iron tablets??every other day -Follow dietary recommendations -Follow-up CBC outpatient -Transfuse for hemoglobin less than 7 ? Mild Pericardial effusion Mild ascites Mild??pleural effusion Malnutrition Anasarca (R60.1):?? Patient found to have??anasarca on CT scan??with mild ascites,??pleural effusion and pericardial effusion on echocardiogram yesterday Echocardiogram showing??mild pericardial effusion with??elevated??central venous pressure. Suspect patient sinus tach??may be due to malnutrition given her low albumin and total protein??andher poor diet. Patient denies any symptoms of dysphagia or trouble swallowing from her??previous??achalasia which was treated surgically. Patient to be??most likely benefit from high-protein supplementation. ??Currently awaiting nutrition recommendations. Given elevated CVP,??can also benefit from diuresis today??with fluid restriction. ?? Plan -Check??Daily weights -Fluid restriction to 2 L daily -Follow dietary recommendations -Continue 40 mg pantoprazole twice daily ? Achalasia (K22.0):? Dysphagia (R13.10):?? On admission patient had reported??difficulty swallowing??and swallow eval was ordered and??patientwas started on the dental soft diet ? Muscle spasm (M62.838):??Patient with neck and shoulder pain consistent with prior muscle spasms, at which time??Flexeril??relieved her pain -Cyclobenzaprine 10 mg every 8 hours as needed for muscle spasm?? Objective Vital Signs?? Temperature: 98 DegF (07/28/23 04:51:00) Temperature Route: Oral (07/28/23 04:51:00) Pulse Rate: 73 bpm (07/28/23 04:51:00) Respiratory Rate: 18 br/min (07/28/23 04:51:00) Systolic Blood Pressure:??145 mm Hg??High (07/28/23 04:51:00) Diastolic Blood Pressure: 73 mm Hg (07/28/23 04:51:00) Blood pressure sites: Arm, right (07/28/23 04:51:00) Mean Arterial Pressure: 89 mm Hg (07/28/23 00:03:00) Pulse Pressure: 72 mm Hg (07/28/23 00:03:00) Oxygen Saturation: 96 % (07/28/23 04:51:00) Mode of Delivery (Oxygen): Room air (07/28/23 04:51:00) Early Warning Score: 0 (07/28/23 04:52:06) ? . Physical Exam General: No apparent distress, appears stated age, awake, alert, cooperative with exam Head/Neck/Throat: Normocephalic, atraumatic, moist mucous membranes Eyes: Sclera anicteric, EOMI Thorax: Clear to auscultation bilaterally, no respiratory distress Cardiovascular: Regular rate and rhythm, no murmurs rubs or gallops, diffuse??mild peripheral edema??in??arms and legs Abdomen: Soft, nontender, mildly distended, Musculoskeletal: No gross bony deformities Skin: No rashes or wounds noted on exposed skin Neurologic: Alert and oriented x3, no focal neurological deficits, no facial droop Psychiatric: Normal affect Consultants Kayla Ramirez RD??-----clinical operations specialist Pending Results Ferritin ordered on 07/26/2023 Folate Level ordered on 07/26/2023 Haptoglobin ordered on 07/26/2023 Iron + Iron Binding Capacity ordered on 07/26/2023 Transfuse RBCs ordered on 07/26/2023 Transfuse RBCs ordered on 07/27/2023 Vitamin B12 Level ordered on 07/26/2023 Patient Education Titles WebMD Ignite Patient Education - Complete Blood Count?? WebMD Ignite Patient Education - Aging and Nutrition Problems?? WebMD Ignite Patient Education - Iron-Deficiency Anemia (Adult)?? Follow-Up Appointments Added Follow Up ?Time Frame ?Comments Luisa GLASER, Genie Timmons?2 to 3 weeks?Please call to schedule an appointment as soon as possible. Patient Instructions He presented to the hospital complaints of diffuse bodily swelling, shortness of breath along with neck and shoulder pain for 4 days.?? While in the hospital, your labs showed that you are severely anemic and also malnourished.?? You were transfused with blood, given IV iron supplements and IV water pill to help remove the excess water that was found in your tissue on CT scan.?? Your labs today shows improvement in your hemoglobin.?? The clinical operations specialist saw you yesterday and they recommended that you increase the amount of calories and protein in your diet.?? Does recommend taking multivitamins with minerals with a 1.5 kcal/ml oral vanilla supplement 3 times daily.?? They also recommend increasing your daily meal consumption.?? Please take your oral iron pills every other day with laxative as needed for constipation.?? Please check your weights daily and record it.?? Please reduce your water consumption to 2 L daily.?? If you experience any worsening fatigue, shortness of breath or rapidweight gain, please, call your PCP or visit the nearest ED. Results Discharge Labs BLOOD BANK Blood Type O Positive ()?? 07/26/2023 06:10 Antibody Screen Negative ()?? 07/26/2023 06:10 RBC Unit ID [id number] ()?? 07/27/2023 11:23 RBC Available PT ()?? 07/27/2023 11:23 ?? BLOOD COUNT & DIFF WBC 7.3 k/mm3 ()?? 07/28/2023 00:37 RBC 4.18 m/mm3 (Low)?? 07/28/2023 00:37 Hgb 8.5 Gm/dL (Low)?? 07/28/2023 00:37 Hct 29.9 % (Low)?? 07/28/2023 00:37 MCV 71.5 femtoliters (Low)?? 07/28/2023 00:37 MCH 20.3 pg (Low)?? 07/28/2023 00:37 MCHC 28.4 g/dL (Low)?? 07/28/2023 00:37 Platelet Count 217 k/mm3 ()?? 07/28/2023 00:37 RDW-SD 50.9 femtoliters (High)?? 07/28/2023 00:37 MPV NOT MEASURED femtoliters ()?? 07/28/2023 00:37 Nucleated RBC (Automated) 0.0 #/100 WBC'S ()?? 07/28/2023 00:37 Abs. NRBC 0.0 k/mm3 ()?? 07/28/2023 00:37 Abs. Neut 2.9 k/mm3 ()?? 07/26/2023 04:39 Abs. Lymph 1.2 k/mm3 ()?? 07/26/2023 04:39 Abs. [place] 0.7 k/mm3 ()?? 07/26/2023 04:39 Abs. Eo 0.4 k/mm3 ()?? 07/26/2023 04:39 Abs. Baso 0.0 k/mm3 ()?? 07/26/2023 04:39 Neut % 56.1 % ()?? 07/26/2023 04:39 Lymph % 22.4 % ()?? 07/26/2023 04:39 [place] % 13.5 % (High)?? 07/26/2023 04:39 Eos % 6.8 % (High)?? 07/26/2023 04:39 Baso % 0.6 % ()?? 07/26/2023 04:39 Imm Gran 0.6 % ()?? 07/26/2023 04:39 Abs. Imm Gran 0.0 k/mm3 ()?? 07/26/2023 04:39 ?? CARDIAC Nt-Probnp 533 pg/mL (High)?? 07/26/2023 04:29 High Sensitivity Troponin (HSTnT) 13 ng/L ()?? 07/26/2023 05:53 ?? CHEM GENERAL Sodium 138 mmol/L ()?? 07/28/2023 00:37 Potassium 3.7 mmol/L ()?? 07/28/2023 00:37 Chloride 102 mmol/L ()?? 07/28/2023 00:37 Bicarbonate Level 25 mmol/L ()?? 07/28/2023 00:37 Anion Gap 11 ()?? 07/28/2023 00:37 Glucose Level 87 mg/dL ()?? 07/28/2023 00:37 BUN 7 mg/dL (Low)?? 07/28/2023 00:37 Creatinine-Blood 0.4 mg/dL (Low)?? 07/28/2023 00:37 Estimated GFR Creatinine 108 ML/MIN/1.73 M2 ()?? 07/28/2023 00:37 Calcium 8.3 mg/dL (Low)?? 07/28/2023 00:37 Phosphorus 3.2 mg/dL ()?? 07/28/2023 00:37 Magnesium 2.2 mg/dL ()?? 07/28/2023 00:37 Protein, Total 5.0 Gm/dL (Low)?? 07/26/2023 04:29 Albumin 3.1 Gm/dL (Low)?? 07/26/2023 04:29 AG Ratio 1.6 ()?? 07/26/2023 04:29 Alkaline Phosphatase 127 units/L (High)?? 07/26/2023 04:29 AST (SGOT) 15 units/L ()?? 07/26/2023 04:29 ALT (SGPT) 9 units/L ()?? 07/26/2023 04:29 Bilirubin, Total 0.3 mg/dL ()?? 07/26/2023 04:29 Vitamin B12 Level 706 pg/mL ()?? 07/26/2023 04:29 Folic Acid Level 14.2 ng/mL ()?? 07/26/2023 04:29 Iron Level 12 mcg/dL (Low)?? 07/26/2023 04:29 Iron Binding Capacity, Unsaturated 311 mcg/dL ()?? 07/26/2023 04:29 Iron Binding Capacity, Estimated Total 323 mcg/dL ()?? 07/26/2023 04:29 % Iron Saturation 4 % (Low)?? 07/26/2023 04:29 Ferritin Level 4 ng/mL (Low)?? 07/26/2023 04:29 ?? COAG INR 1.1 ()?? 07/26/2023 06:10 Protime (PT) 11.3 seconds ()?? 07/26/2023 06:10 APTT 25.0 seconds ()?? 07/26/2023 06:10 ? IMMUNOLOGY GENERAL Haptoglobin 151 mg/dL ()?? 07/26/2023 04:29 ? UA/URINALYSIS Appear/Color, Urine LIGHT YELLOW ()?? 07/26/2023 05:30 Specific [place], Urine 1.015 ()?? 07/26/2023 05:30 pH, Urine 7.5 ()?? 07/26/2023 05:30 Albumin, Urine NEGATIVE ()?? 07/26/2023 05:30 Glucose, Urine NEGATIVE ()?? 07/26/2023 05:30 Ketones, Urine NEGATIVE ()?? 07/26/2023 05:30 Bilirubin, Urine NEGATIVE ()?? 07/26/2023 05:30 Hemoglobin, Urine NEGATIVE ()?? 07/26/2023 05:30 Nitrite, Urine NEGATIVE ()?? 07/26/2023 05:30 Leukocyte, Urine NEGATIVE ()?? 07/26/2023 05:30 Urobilinogen 2 mg/dL (Abnormal)?? 07/26/2023 05:30 WBC's, Urine <1 /HPF ()?? 07/26/2023 05:30 RBC's, Urine <1 /HPF ()?? 07/26/2023 05:30 Squamous Epith <1 /HPF ()?? 07/26/2023 05:30 Mucus SLIGHT /LPF ()?? 07/26/2023 05:30 Hold Urine Culture Testing available 48 hours from time of collection. ()?? 07/26/2023 05:30 ?? URINE OTHER Protein, Total Urine Random 15 mg/dL ()?? 07/27/2023 11:01 TP/Cr Ratio 0.10 ()?? 07/27/2023 11:01 Creatinine, Urine 144.3 mg/dL ()?? 07/27/2023 11:01 ? VIROLOGY Influenza A PCR NEGATIVE ()?? 07/26/2023 06:55 Influenza B PCR NEGATIVE ()?? 07/26/2023 06:55 RSV PCR NEGATIVE ()?? 07/26/2023 06:55 COVID-19 PCR Specimen Source NASAL ()?? 07/26/2023 06:55 COVID-19 PCR Result NEGATIVE ()?? 07/26/2023 06:55 ? Microbiology ?? COVID-19, RSV, and Flu A/B, Rapid PCR?? Completed?? Source: Nasal Body Site: Nose Collected Dt/Tm: 07/26/2023 06:35 Last Updated Dt/Tm: 07/26/2023 09:16 ? Imaging(s) ?Echocardiogram - Complete ?? 07/26/2023 15:42??by Nawaf Angelo MD ?Cardiac Anatomy ?? Left Ventricle/Interventricular Septum ??Normal LV systolic function (EF 55-60%). ??No significant regional wall motion abnormalities. ??Normal LV diastolic function. ??Normal LV cavity size. Normal LV wall thickness. ?? Left Atrium/Interatrial Septum ??Normal size LA. ?? Aortic Valve ??No significant structural abnormalities of the aortic valve. ??No significant aortic regurgitation. No significant aortic stenosis. ?? Mitral Valve ??No significant structural abnormalities of the mitral valve. ??No significant mitral regurgitation. ?? Aorta ??Normal size aortic root. Mildly dilated ascending aorta (3.7 cm). ?? Right Ventricle ??Normal RV systolic function. Normal RV size. ?? Right Atrium ??Normal size RA. ?? Pulmonic Valve ??Poorly visualized pulmonic valve. ?? Tricuspid Valve ??No significant structural abnormalities of the tricuspid valve. ??No significant tricuspid regurgitation. ?? Pumonary Artery ??Unable to estimate PA systolic pressure. ?? Venous Structures ??Dilated IVC with blunted respiratory variation (suggesting high RAP/CVP). ?? Pericardium/Extracardiac ??Small circumferential pericardial effusion. Mitral/tricuspid inflow ??variation was not performed, limiting ability to evaluate for cardiac ??tamponade (although visually, tamponade appears unlikely). ?? Summary ??Normal LV systolic function (EF 55-60%). ??No significant regional wall motion abnormalities. ??Normal LV diastolic function. ??Normal LV cavity size. Normal LV wall thickness. ?? Normal RV systolic function. Normal RV size. ?? No clinically significant valvular abnormalities. ?? Dilated IVC with blunted respiratory variation (suggesting high RAP/CVP). ?? Small circumferential pericardial effusion. Mitral/tricuspid inflow ??variation was not performed, limiting ability to evaluate for cardiac ??tamponade (although visually, tamponade appears unlikely). ?? Recommendation ??If clinical concern for cardiac tamponade, please request limited echo with ??mitral/tricuspid inflow assessment. ?CT Abdomen and Pelvis W/O Contrast ?? 07/26/2023 05:28??by Kalia Ng MD ?IMPRESSION: ?? 1. Unchanged bilateral nonobstructing stones. No evidence of hydronephrosis bilaterally. ?? 2. Features of volume overload including bilateral small pleural effusions, trace pericardial effusion, minimal abdominal ascites and diffuse soft tissue anasarca. ?? 3. Unchanged biliary ductal dilation without CT evidence of choledocholithiasis. ?? 4. Overall unchanged pancreatic cystic lesions, suboptimally evaluated on this noncontrast enhancedtechnique. Recommend additional follow-up with MRCP. ?? 5. Additional chronic findings as above. ? 20 minutes spent on discharge * Perlita Clarke MD: PERFORM Event Display: Discharge/Transfer Note Hospital Authored Date: [id number] ??Pt ??seen and examined at bedside , discussed the case and its management with resident , agree with documentation above. Pt is feeling better, Hb?? better, anasarca improving. Pt aware?? of the nutritional recommendations. She will be discharge home. Recommend close OP f/u with PCP . Will need follow up CXR and echo . * Perlita Clarke MD: PERFORM Event Display: Discharge/Transfer Note Hospital Authored Date: [id number] Time spent on discharge 40 minutes. * Lizbeth MANJARREZ, [facility]: PERFORM Event Display: Patient Education/Instruction Authored Date: [id number] Inpatient Adult Discharge Instructions. [place] [id number] Name: NADYA DELAROSA : 1955?? Visit: 07/27/2023 09:21?? Current Date: 07/28/2023 14:51 ?? Account: [id number]?? Inpatient Adult Discharge Instructions We would like to thank you for allowing us to assist you with your healthcare needs. The following includes patient education materials and information regarding your injury/illness. Our entire staffstrives to provide an excellent experience for our patients and their families. PLEASE ENSURE YOU FOLLOW-UP PER THE INSTRUCTIONS BELOW! ?? YOUR OPINION IS IMPORTANT TO US! Please complete the survey you may receive by mail or email. Your feedback will be used to make improvements to the healthcare experiences of our patients and their families. Surveys are administered by [employer] ?? If further treatment with your primary care physician or another doctor is recommended, it is important for you to keep the appointment. Call your primary care physician or return to the Emergency Department immediately if your condition worsens, fails to improve, or new symptoms develop. If you need to find a doctor, you can call [facility] Link for a referral at [phone] or toll free at [phone]) or log in to [email or web address].. ?? [facility], in keeping with [facility] guidance, no longer requires face masks for staff, patientsor visitors in most situations. Similiar to time spent indoors at other locations, there is the chance that you were exposed to repiratory viruses during your time with us (such as flu or COVID-19). If you develop symptoms concerning for a viral respiratory infection, please seek testing (and treatment if indicated) from your medical provider or home test kit. ?? You can view and manage your care through the patient portal or by using a health care jorge of your choosing. [employer] is a website that allows you to securely view your medical information including your hospital discharge summary, office visit summaries, medications and follow-up visits. You can also request appointments, renew medications, and request access to your medical information using a health care jorge of your choosing, or just ask a question. You can enroll at [email or web address] or register during your next office visit. You have been discharged from [facility], Patient Care Unit: D3B??. If you have any questions regarding these instructions, including results of studies pending, afteryou leave, please call us and we will be happy to assist you 14/12. [facility] Your Care Team Attending Physician Perlita Clarke MD?? Consulting Providers Perlita Clarke MD?? Discharging Providers Refugio Perera MD Reason for Your Visit Neck and shoulder pain x 4 days, diffuse edema x 4 days, shortness of breath since last night?? Your Diagnosis Acute on chronic anemia Iron deficiency anemia Anasarca Pericardial effusion Malnutrition Achalasia Dysphagia Muscle spasm Tests Performed Below is a partial list of the tests performed during your hospitalization. You may have had other tests and procedures not included in this list. Please discuss all test results with your provider. Basic Metabolic Panel CBC CBC w/ Differential Comprehensive Metabolic Panel COVID-19, RSV, and Flu A/B, Rapid PCR Ferritin?-- Results Pending -- Folate Level?-- Results Pending -- H + H Haptoglobin?-- Results Pending -- High??Sensitivity??Troponin T INR Iron + Iron Binding Capacity?-- Results Pending -- Magnesium Level Phosphorus Level ProBNP PTT Troponin T, High Sensitivity Type and Screen Urinalysis w/hold for Urine Culture Urine Protein/Creatinine Ratio Vitamin B12 Level?-- Results Pending -- CT Abdomen and Pelvis W/O Contrast You will be contacted within 72 hours with your results. Ferritin?? Folate Level?? Haptoglobin?? Iron + Iron Binding Capacity?? Transfuse RBCs?? Vitamin B12 Level?? Primary Care Provider Luisa GLASER, Genie Timmons? Advance Directive Health Care Proxy on File Yes - Health Care Proxy Discharge Vitals Temperature: 98 DegF Pulse Rate: 73 bpm Respiratory Rate: 18 br/min Systolic Blood Pressure:??145 mm Hg??High Diastolic Blood Pressure: 73 mm Hg Oxygen Saturation: 96 % Studies Pending All studies ordered during this hospital stay have been completed unless listed below. Please discuss all pending results with your provider listed above in these instructions. ?? Ferritin?? Folate Level?? Haptoglobin?? Iron + Iron Binding Capacity?? Transfuse RBCs?? Vitamin B12 Level?? What to do next Instructions From Your Doctor He presented to the hospital complaints of diffuse bodily swelling, shortness of breath along with neck and shoulder pain for 4 days.?? While in the hospital, your labs showed that you are severely anemic and also malnourished.?? You were transfused with blood, given IV iron supplements and IV water pill to help remove the excess water that was found in your tissue on CT scan.?? Your labs today shows improvement in your hemoglobin.?? The clinical operations specialist saw you yesterday and they recommended that you increase the amount of calories and protein in your diet.?? Does recommend taking multivitamins with minerals with a 1.5 kcal/ml oral vanilla supplement 3 times daily.?? They also recommend increasing your daily meal consumption.?? Please take your oral iron pills every other day with laxative as needed for constipation.?? Please check your weights daily and record it.?? Please reduce your water consumption to 2 L daily.?? If you experience any worsening fatigue, shortness of breath or rapidweight gain, please, call your PCP or visit the nearest ED. ?? Orders? 07/28/23 14:27:00 EST?? Durable Medical Equipment?? .5kcal/mL oral supplement TID vanilla, ??See Instructions, # 1, ??each, Refills 0, Tot. Refills 0, ??Maintenance, ??E44.1- Mild protein-energy malnutrition, ??07/28/23 13:23:00 EST, ??Supply?? Scheduled Follow-Up Appointments Wednesday 9:00 AM EDT ?? Where: [facility] Surgical Services Status: Pending 2023 10:20 AM EDT ?? With: Deyanira DANIEL, Patricia Sandhu Where: [facility] Plastic Surgery [address] [place] [id number]- Status: Pending You Need to Schedule the Following Appointments Follow Up with??Luisa GLASER, Genie Timmons When:??Within 2 to 3 weeks Why: Please call to schedule an appointment as soon as possible. Where: [address] [place] [address] [phone] [place] [address]- Discharge Medications NADYA DELAROSA :1955 Visit Date:07/27/2023 Medications: Please continue your medications until treatment is completed or stopped by your provider. Medications not listed below should be discontinued. Discuss any questions related to medications with your provider. What How Much When Instructions Next Dose New Durable Medical Equipment (1.5kcal/ mL oral supplement TID vanilla) See instructions E44.1- Mild protein-energy malnutrition ?? Printed Prescription as prescribed New Multivitamin With Minerals (ABC Complete Multiple Vitamins with Minerals oral tablet) 1 tab(s) Oral Daily Refills: 1 Pickup at [facility] 3 07/28 New Polyethylene Glycol 3350 (MiraLax oral powder for reconstitution) 17 gram Oral Daily Duration: 14 Days dissolve in 4 to 8 oz of beverage ?? Pickup at [facility] 3 as prescribed Changed Ferrous Fumarate (ferrous fumarate 300 mg oral tablet) 1 tab(s) Oral Every Wednesday, and Wednesday as prescribed Unchanged Albuterol (Albuterol (Eqv-Ventolin HFA) 90 mcg/ inh inhalation aerosol) 2 puff(s) Inhalation Every 4 hours as needed for Wheezing/Shortness of Breath as needed Unchanged Exemestane (exemestane 25 mg oral tablet) 1 tab(s) Oral Daily 07/28 Unchanged Omeprazole (omeprazole 40 mg oral enteric coated capsule) 1 capsule Oral Twice a day 07/27 evening dose Unchanged Sucralfate (Carafate Tablet) 1 gram Oral 3 times a day before meals and bedtime as prescibe Pharmacy Information [facility] 3: [address] [place], [place] [phone] Prescription Given During Visit Durable Medical Equipment (1.5kcal/mL oral supplement TID vanilla) - , # 1 each, 0 Refills, E44.1- Mild protein-energy malnutrition?? Multivitamin With Minerals (ABC Complete Multiple Vitamins with Minerals oral tablet) - 1 tablet, By Mouth, Daily, # 30 tablet, 1 Refills, [facility], [address] [place] [phone]?? Polyethylene Glycol 3350 (MiraLax oral powder for reconstitution) - 17 Gm, By Mouth, Daily, # 238 Gm, 0 Refills, dissolve in 4 to 8 oz of beverage, [facility], [address] [place] [address] [phone]?? Laboratory Results Below is a partial list of the most recent Laboratory test results done prior to this discharge. You may have had other tests and procedures not included in this list. Please discuss all test resultswith your provider. RBC Available - PT (07/27/2023) RBC Unit ID - [id number] (07/27/2023) Basic Metabolic Panel (07/28/2023) ???Sodium - 138 mmol/L???Potassium - 3.7 mmol/L???Chloride - 102 mmol/L???Bicarbonate Level - 25 mmol/L???Anion Gap - 11???Glucose Level - 87 mg/dL???BUN - 7 mg/dL???Creatinine-Blood - 0.4 mg/dL???Estimated GFR Creatinine - 108 ML/MIN/1.73 M2???Calcium - 8.3 mg/dL CBC (07/28/2023) ???WBC - 7.3 k/mm3???RBC - 4.18 m/mm3???Hgb - 8.5 Gm/dL???Hct - 29.9 %???MCV - 71.5 femtoliters???MCH - 20.3 pg???MCHC - 28.4 g/dL???Platelet Count - 217 k/mm3???RDW-SD - 50.9 femtoliters???MPV - NOTMEASURED???Nucleated RBC (Automated) - 0.0 #/100 WBC'S???Abs. NRBC - 0.0 k/mm3 CBC w/ Differential (07/26/2023) ???WBC - 5.2 k/mm3???RBC - 3.70 m/mm3???Hgb - 6.7 Gm/dL???Hct - 25.7 %???MCV - 69.5 femtoliters???MCH - 18.1 pg???MCHC - 26.1 g/dL???Platelet Count - 245 k/mm3???RDW-SD - 48.6 femtoliters???MPV - NOTMEASURED???Nucleated RBC (Automated) - 0.0 #/100 WBC'S???Abs. NRBC - 0.0 k/mm3???Abs. Neut - 2.9 k/m m3???Abs. Lymph - 1.2 k/mm3???Abs. [place] - 0.7 k/mm3???Abs. Eo - 0.4 k/mm3???Abs. Baso - 0.0 k/mm3???Neut % - 56.1 %???Lymph % - 22.4 %???[place] % - 13.5 %???Eos % - 6.8 %???Baso % - 0.6 %???Imm Gran - 0.6 %???Abs. Imm Gran - 0.0 k/mm3 Comprehensive Metabolic Panel (07/26/2023) ???Sodium - 141 mmol/L???Potassium - 3.8 mmol/L???Chloride - 107 mmol/L???Bicarbonate Level - 24 mmol/L???Anion Gap - 10???Glucose Level - 98 mg/dL???BUN - 8 mg/dL???Creatinine-Blood - 0.5 mg/dL???Estimated GFR Creatinine - 106 ML/MIN/1.73 M2???Calcium - 8.3 mg/dL???Protein, Total - 5.0 Gm/dL???[place] min - 3.1 Gm/dL???AG Ratio - 1.6???Alkaline Phosphatase - 127 units/L???AST (SGOT) - 15 units/L???ALT (SGPT) - 9 units/L???Bilirubin, Total - 0.3 mg/dL COVID-19, RSV, and Flu A/B, Rapid PCR (07/26/2023) ???Influenza A PCR - NEGATIVE???Influenza B PCR - NEGATIVE???RSV PCR - NEGATIVE???COVID-19 PCR Specimen Source - NASAL???COVID-19 PCR Result - NEGATIVE H + H (07/27/2023) ???Hgb - 9.1 Gm/dL???Hct - 31.4 % High??Sensitivity??Troponin T (07/26/2023) ???High Sensitivity Troponin (HSTnT) - 13 ng/L INR (07/26/2023) ???INR - 1.1???Protime (PT) - 11.3 seconds Magnesium Level (07/28/2023) ???Magnesium - 2.2 mg/dL Phosphorus Level (07/28/2023) ???Phosphorus - 3.2 mg/dL ProBNP (07/26/2023) ???Nt-Probnp - 533 pg/mL PTT (07/26/2023) ???APTT - 25.0 seconds Troponin T, High Sensitivity (07/26/2023) ???High Sensitivity Troponin (HSTnT) - 13 ng/L Type and Screen (07/26/2023) ???Blood Type - O Positive???Antibody Screen - Negative Urinalysis w/hold for Urine Culture (07/26/2023) ???Appear/Color, Urine - LIGHT YELLOW???Specific [place], Urine - 1.015???pH, Urine - 7.5???Albumin, Urine - NEGATIVE???Glucose, Urine - NEGATIVE???Ketones, Urine - NEGATIVE???Bilirubin, Urine - NEGATIVE???Hemoglobin, Urine - NEGATIVE???Nitrite, Urine - NEGATIVE???Leukocyte, Urine - NEGATIVE???Urobi linogen - 2 mg/dL? ?WBC's, Urine - <1 /HPF? ?RBC's, Urine - <1 /HPF? ?Squamous Epith - <1 /HPF???Mucus - SLIGHT???Hold Urine Culture - Testing available 48 hours from time of collection. Urine Protein/Creatinine Ratio (07/27/2023) ???Protein, Total Urine Random - 15 mg/dL???TP/Cr Ratio - 0.10???Creatinine, Urine - 144.3 mg/dL Allergies (NKA means No Known Allergies) Other Food Allergy Problems Active Problems??(13) Achalasia?? Asthma?? Cancer of central portion of left female breast?? Cholecystectomy?? Family history of breast cancer?? H/O: GI Bleed?? History of fundoplication?? Incisional hernia?? Iron deficiency anemia?? Malignant neoplasm of overlapping sites of left breast in female, estrogen receptor positive?? Migraine?? Multiple pancreatic cysts?? Myotomy?? Education Materials Below is the list of Educational Leaflet Providered with your Discharge Instructions. [employer] Patient Education - Complete Blood Count?? [employer] Patient Education - Aging and Nutrition Problems?? [employer] Patient Education - Iron-Deficiency Anemia (Adult)?? Valuables and Belongings I fully understand and agree that [facility] accepts no responsibility for all my personal property including clothing, toilet articles, radios, jewelry, dentures, hearing aids, rings, money, or any other property that is in my possession or is brought to me after admission. I understand certain valuables may be placed in a hospital safe for a short period of time. I understand that the hospital is not liable for loss or damage due to accident, fire, or other natural occurrence while said property is in the safe. I accept full responsibility for any personal property that I keep with me, and will not hold the hospital responsible in case of loss or disappearance. I acknowledge that i have been encouraged to send valuables and belongings home. ?? No Valuables/Belongings: No valuables/belongings present Date for Pt to Sign Valuables/Belongings: 07/26/23 09:07:00 ?? Other Discharge Information ? Pulmonary Rehab Status?? Pulmonary Rehab Discharge Status?? Respiratory Rate: 18 br/min ? Common Emergency Awareness Tips IS IT A STROKE? Act FAST and Check for these signs: FACE Does the face look uneven? ARM Does one arm drift down? SPEECH Does their speech sound strange? TIME Call at any sign of stroke ?? Heart Attack Signs Chest discomfort: Most heart attacks involve discomfort in the center of the chest and lasts more than a few minutes, or goes away and comes back. It can feel like uncomfortable pressure, squeezing, fullness or pain. Discomfort in upper body: Symptoms can include pain or discomfort in one or both arms, back, neck, jaw or stomach. Shortness of breath: With or without discomfort. Other signs: Breaking out in a cold sweat, nausea, or lightheaded. Remember, MINUTES DO MATTER. If you experience any of these heart attack warning signs, call to get immediate medical attention! ?? Smoking can increase your chances of developing chronic health problems and can cause harmful effects to other family members in your house. If you smoke, you are strongly encouraged to quit. Please call [facility] at [phone] or [phone] ([phone]) or log in to [email or web address] for referrals to smoking cessation programs. ?? 309 Suicide & Crisis Lifeline is available 14/12 if you or someone you know needs to find a reason to keep living. By calling 230 you'll be connected to a skilled, trained counselor at a crisis center in your area. INPATIENT DISCHARGE INSTRUCTIONS SIGNATURE NADYA GABRIEL Location:[facility] Registration Date and Time:07/27/2023 09:21 EST Primary Care Physician: Genie Moran MD, Attending Physician: Perlita Clarke MD, NADYA CANTRELL, have received the above patient education materials/instructions and have verbalized understanding. If ambulance or transport services are being used I further acknowledge beinggiven a choice of service. ?? If you need to contact me, please call me at this number: . Patient/Back Sewer Name: Patient/Back Sewer Signature: Relationship to Patient: Witness Name/Signature: Date: * Refugio Perera MD: PERFORM Event Display: Patient Education Leaflets Authored Date: [id number] Complete Blood Count ?? complete_blood_count Complete Blood Count Does this test have other names? CBC ?? What is this test? The complete blood count (CBC) is a blood test used to screen your overall health and to look for many different illnesses, including anemia, infections, and leukemia. The test extracts a large amount of information from the blood sample you've given, including: ??? The number of white blood cells ( WBCs).??There are 5 types of WBCs. All play a role in fighting infection. High numbers of WBCs may mean you have an infection or inflammation somewhere in your body. Low numbers of WBCs may mean you are at risk for infections. ??? The number of red blood cells (RBCs).??RBCs carry oxygen throughout the body and remove excess carbon dioxide. Too few RBCs may be a sign of??anemia??or??other??diseases. In rare cases, too many RBCs may cause problems with blood flow. ??? How the size of your red blood cells varies.??This test is known as red cell distribution width (RDW, RDW-CV, or RDW-SD). For instance, you'll probably have greater differences in red blood cell size if you have anemia. ??? Hematocrit (HCT). This means the portion??of red blood cells in a certain amount of whole blood.??A low hematocrit may be a sign of too much bleeding. Or it might mean that you have iron deficiency or other disorders. A higher than normal hematocrit can be caused by dehydration or other disorders. ??? Hemoglobin (Hgb, Hb).??Hemoglobin is a protein in red blood cells. It carries oxygen from the lungs to the rest of the body. Abnormalities can be a sign of problems ranging from anemia to lung disease.??? The average size of your red blood cells.??This test is known as mean corpuscular volume (MCV).MCV goes up when your red blood cells are bigger than normal. This happens if you have anemia caused by low vitamin B12??or folate levels. If your red blood cells are smaller, this can mean other types of anemia, such as iron deficiency??anemia. ??? A platelet (PLT) count.??Platelets are cell fragments that play a role in blood clotting. Too few platelets may mean you have a higher risk of bleeding. Too many may mean a number of possible conditions.? Why do I need this test? You may need this test if you have: ??? Unusual bleeding or bruising ??? Infection or inflammation ??? Weakness and tiredness that doesn???t go away. These may be symptoms of anemia. You may also have this test if your healthcare provider thinks you may have a certain disease or condition. Or you may have this test as part of a routine exam to check your health. The test may alsobe used to see how well certain treatments are working. ?? What other tests might I have along with this test? Your healthcare provider may order other tests??if your CBC results are abnormal. These may includeother blood tests, urine tests, and bone marrow or spinal fluid tests. ? What??do my test results mean? Test results may vary depending on your age, gender, health history, the method used for the test, and other things. Your test results may not mean you have a problem. Ask your healthcare provider what your test results mean for you.?? Although estimates vary from lab to lab, here are some typical normal ranges for the main parts of the CBC: ??? Red blood cell (RBC) count: 3.93 to 5.69 million cells per cubic millimeter (million/mm3) ??? Hemoglobin (Hgb, Hb): 12.6 to 17.5 grams per deciliter (g/dL) for males; 12.0 to 16 g/dL for females ??? Hematocrit (HCT): 38% to 47.7% ??? White blood cell (WBC) count: 3,300 to ??8,700 cells per cubic millimeter (thousand/mm3) ??? Platelet (PLT) count: 150,000 to 450,000 per cubic millimeter (thousand/mm3) Abnormal test results can have many causes. Some of these causes might not be something that needs to be treated. The most common problem found through the CBC is mild anemia. You may have more testing, depending on how severe the anemia is and whether other problems crop up in the test.? How is this test done? The test is done with a blood sample. A needle is used to draw blood from a vein in your arm or hand.? Does this test pose any risks? Taking a blood sample with a needle carries risks that include bleeding, infection, bruising, or feeling dizzy. When the needle pricks your arm, you may feel a slight stinging sensation or pain. Afterward, the site may be slightly sore. ?? What might affect my test results? Certain medicines might affect your results. Talk with your healthcare provider about the medicinesyou are taking. ?? How do I get ready for this test? You don't need to prepare for this test. Be sure your healthcare provider knows about all medicines, herbs, vitamins, and supplements you are taking. This includes medicines that don't need a prescription and any illegal??drugs you may use.? Last Reviewed Date: 2021 ?? 3012-2154 The [employer]. All rights reserved. This information is not intended as a substitute for professional medical care. Always follow your healthcare professional's instructions. ?? * Refugio Perera MD: PERFORM Event Display: Patient Education Leaflets Authored Date: [id number] Aging and Nutrition Problems ?? 60275 Aging and Nutrition Problems Poor nutrition means not getting enough nutrients from food to keep you healthy. This can cause many kinds of health problems. Poor nutrition can make you lose muscle. It can make you feel tired and weak. And it can make it harder for your body to fight infection and heal wounds. You may have trouble with daily tasks. You may even lose mobility. Work with your healthcare provider to make sure you get enough nutrients to be healthy and maintain a good quality of life. What can cause poor nutrition? Older adults may have nutrition problems for several reasons. They may eat less, not eat a variety of foods, or not absorb nutrients. These problems may be caused by: ??? Not being hungry very often ??? Feeling full too quickly ??? Feeling full for a long time ??? Changes in hormones that control or affect hunger ??? Less ability to smell and taste ??? Lack of physical activity ??? Slowed digestion ??? Stress ??? Conditions, such as depression, dementia, alcohol use disorder, Parkinson disease,acid reflux, or cancer ??? Medicine side effects ??? Teeth or denture problems that make biting andchewing difficult ??? Trouble swallowing (dysphagia) ??? Trouble using your arms, hands, or fingers because of pain, stiffness, or tremor ??? Being less able to shop, cook, or prepare food ??? Lack of interest in cooking ??? Living alone and eating most meals alone ??? Being in a housing facility where you don???t like the food ??? Trouble paying for food ??? Diarrhea, constipation, nausea, vomiting, or gastritis ?? Problems from poor nutrition Older adults who don???t have good nutrition may have problems, such as: ??? Unplanned weight loss ??? Loss of muscle ??? Less strength ??? Feeling tired and weak ??? Trouble with balance and walking??? Trouble thinking and remembering ??? Trouble with bathing, dressing, and other daily tasks ??? Weakened bones ??? Wounds that are slow to heal ??? Gum problems and tooth loss ??? Falls that can cause injury ??? Slow recovery from surgery ??? Conditions such as COPD or heart disease that get worse ??? More infections ??? Loss of mobility and independence ??? Earlier ?? Making changes to eat better Talk with your healthcare provider about the reasons you may be eating less food, or less variety of foods. They can help you make changes to get better nutrition. These may include: ??? Working with a clinical operations specialist or dietitian ??? Finding foods that are easier to eat if you have trouble chewing or swallowing ??? Medicines to help with digestive problems ??? Having protein, vitamin, mineral, or other nutritional supplements ??? Counseling or medicine for depression ??? Dental care to fix pain and other problems ??? Talking with your housing facility about other food choices ??? Local services to help with shopping for and preparing food ??? Local services that provide cooked meals to seniors ??? Eating your meals in social settings ??? Financial help What nutrients do you need? These are the nutrients you need from food to keep you healthy: ??? Protein. Protein can help buildmuscle and prevent infections. Eat foods high in protein, such as meats, fish, eggs, cheese, milk, nuts, yogurt, seeds, lentils, soy products, and beans. This is the most common nutrient that older adults don???t get enough of. ??? Carbohydrates. These help give you energy. They have fiber to help with digestion. Fiber may also lower your risk for heart disease and type 2 diabetes. Carbohydrates are found in grains, fruits, beans, and other legumes. Eat a variety of fruits, vegetables, and whole grains, such as brown rice, whole-grain bread, and oatmeal. ??? Fats. Healthy fats help your organs, skin, hair, and brain. They also help your body absorb certain vitamins. Eat foods like nuts, salmon, tuna, seeds, and olive oil contain healthy fats. Limit foods that contain unhealthy fats, such as butter, shortening, and fried foods. ??? Vitamins. These include vitamins C, D, B-6, B-12, folate, and others. These help your body repair tissues, use energy, and do many other processes. You get v itamins by eating a variety of foods, including fruits, vegetables, grains, and protein foods. Add colorful fruits and vegetables to your diet. ??? Minerals. These include iron, magnesium, calcium, zinc, and others. These help with many things. They make sure your cells have enough oxygen, your nervous system works well, and your bones stay strong. You get minerals by eating a variety of foods, including fruits, vegetables, grains, and protein foods. Milk, soy milk, yogurt, leafy greens, tofu, and calcium-fortified juices are all good sources of calcium. ?? Getting enough protein Older adults are at most risk of not getting enough protein in their diets. This is known as protein-energy malnutrition (PEM). Protein is one of the most important nutrients for staying healthy. Talk with your healthcare provider about the best ways to get enough protein every day. This may include: ??? Adding protein to every meal. This includes turkey, chicken, beef, pork, cuevas, fish, shellfish, eggs, and cheese. Protein is also found in foods, such as nuts, nut butters, beans and other legumes, seeds, and tofu. You can also get protein from animal milks and soy milk. ??? Having protein supplements between meals. There are many kinds of protein drinks and other protein supplements. Thesehave protein from whey, soy, and other sources. If you have trouble digesting lactose or soy, ask your healthcare provider which type of protein supplement may be best for you. ?? Last Reviewed Date: 2022 ?? 8799-2056 The [employer]. All rights reserved. This information is not intended as a substitute for professional medical care. Always follow your healthcare professional's instructions. ?? * Refugio Perera MD: PERFORM Event Display: Patient Education Leaflets Authored Date: [id number] Iron-Deficiency Anemia (Adult) ?? [id number] Iron-Deficiency Anemia (Adult) Red blood cells carry oxygen to the tissues of your body. Anemia is a condition in which you have too few red blood cells. You need iron to make red cells. Anemia makes you feel tired and run down. When anemia becomes severe, your skin becomes pale. You may feel short of breath or have chest pain after physical activity. Other symptoms include: ??? Headaches, especially with physical activity ??? Rapid heart rate ??? Pounding or whooshing in the ears ??? General weakness, drowsiness, or dizziness ??? Brittle nails or hair loss ??? Leg cramps with physical activity ??? Restless legs ??? Urge to eat ice or nonfood items such as paper Your anemia is caused by not having enough iron in your body. This may be because of: ??? Loss of blood caused by heavy menstrual periods or bleeding from the stomach or intestines. ???Major surgery or physical trauma ??? Not eating enough foods that contain iron ??? Not being able to absorb iron from the foods you eat ??? If your blood count is low enough,??your healthcare provider??may prescribe an iron supplement. It usually takes about 2 to 3 months of treatment with iron supplements to correct anemia. Severe casesof anemia need a blood transfusion to quickly ease symptoms and deliver more oxygen to the cells. Home care Follow these guidelines when caring for yourself at home: ??? Eat foods high in iron. This will boost the amount of iron stored in your body. It's a natural way to build up the number of blood cells.Good sources of iron include beef, liver, poultry, fish, spinach, and other dark green leafy vegetables, whole grains, beans, and nuts. ??? Don't overexert yourself. ??? Talk with your provider before traveling by air or traveling to high altitudes. ?? Follow-up care Follow up with your provider in 2 months or as directed by your provider .It's important to have another red blood cell count test to be sure your anemia is getting better. ?? Call 911 Call 911 if any of these occur: ??? Shortness of breath or chest pain ??? Dizziness or fainting ???Vomiting blood or passing red or black-colored stool? Last Reviewed Date: 2021 ?? [employer]. All rights reserved. This information is not intended as a substitute for professional medical care. Always follow your healthcare professional's instructions. ?? Patient Care team information Care Team Personnel Name: Genie Moran MD Position: [facility] Outreach Member Role: PCP Address: Address: [address] [place] [address]- Name: Marianna Kinsey RN Position: [facility] RN Member Role: Primary Care Nurse Name: Esther Blackburn RN Position: [facility] RN Member Role: Primary Care Nurse Name: Tana Schaefer NP Position: [facility] PCO Associate Professional Member Role: Primary Care Nurse Address: Address: [address] [place] [id number]- Name: Karyn Sweeney RN Position: [facility] SN RN Member Role: Primary Care Nurse Name: Matheus Nieves RN Position: [facility] RN Member Role: Primary Care Nurse Care Team Related Persons Name: CLAUDINE ELIZABETH Name: RACHELLE HERNANDEZ Address: [address] [address]
--- OUTSIDE RECORDS SUMMARY | 2024-04-15 21:58 | XMS_ITS | Continuity of Care Document ---
Author Organization [facility] Marni niurka Address [address] [place] [address] [address] [place] [address]- Care Team Providers Care J2Ee Developer Name Role Phone Genie Moran MD Primary Care Physician Encounter [facility] Date(s): 06/01/22 - 07/01/22 [facility] [address] [place], [place] [address] Attending Physician: AdmIra gonzalez Admitting Physician: Admtr, Ira Referring Physician: Admtr, Ar8 Allergies, Adverse Reactions, [...] 2 Refills, Maintenance, 03/31/22 12:12:00 EST, Tablet, [facility]/pharmacy #[id number], Partial fill upon patient request if the [...] 1 Refills, Maintenance, 05/09/22 9:02:00 EST, Suspension, [facility]/pharmacy #[id number], Partial fill upon patient request if [...] HOSPITAL Outreach Member Role: PCP Address: Address: [address] [place] [address] [address] [place] [address]- Name: Tana Schaefer NP Position: [facility] PCO Associate Professional Member Role: Primary Care Nurse Address: Address: [address] [place] [id number]- [place] Name: Karyn Sweeney RN Position: [facility] RN Member Role: Primary Care Nurse Name: Marianna Cruz RN Position: [facility] RN Member Role: Primary Care Nurse Care Team Related Persons Name: MARYRACHELLE Address: home [address] [place] [id number] Name: YANCI DELAROSA Address: [place] [address]
--- OUTSIDE RECORDS SUMMARY | 2024-04-15 21:58 | XMS_ITS | Continuity of Care Document ---
Author Organization [facility] Address [address] [place] [address]- Care Team Providers Care Ceiling Installer Name Role Phone Genie Moran MD Primary Care Physician Encounter [facility] Date(s): 02/04/22 - 04/05/22 [facility] [address] [facility] [place] [address]- Attending Physician: Shruthi Escamilla MD Admitting Physician: Shruthi Escamilla MD Referring Physician: Genie Moran MD Allergies, [...] Team Personnel Name: Genie Moran MD Position: [facility] Outreach Member Role: PCP Address: Address: [address] [place] [address]- Name: Olive VENDING MACHINE COLLECTOR, Tana Johnson Position: [facility] PCO Associate Professional Member Role: Primary Care Nurse Address: Address: [address] [place] [address]- Name: Karyn Sweeney RN Position: [facility] SN RN Member Role: Primary Care Nurse Name: Marianna Cruz RN Position: [facility] RN Member Role: Primary Care Nurse Care Team Related Persons Name: RACHELLE HERNANDEZ Address: home [address] [place] [id number] Name: YANCI DELAROSA Address: [place] [address]
--- OUTSIDE RECORDS SUMMARY | 2024-04-15 21:58 | XMS_ITS | Continuity of Care Document ---
Author Organization [facility] Marni niurka Address [address] [place] [address] [address] [place] [address]- Care Team Providers Care Clinical Research Manager Name Role Phone Luisa GLASER, Genie Timmons Primary Care Physician Encounter [facility] Date(s): 05/18/23 - 05/25/23 [facility] [address] [place] [address]- Attending Physician: Jhoan GLASER, Jorge Johnson Allergies, Adverse Reactions, Alerts Substance Reaction Severity [...] Refills, Maintenance, 05/09/22 9:02:00 EST, Suspension, [facility][id number], Partial fill upon patient request if the [...] Team Personnel Name: Genie Moran MD Position: [facility] Outreach Member Role: PCP Address: Address: [address] [place] [address]- Name: Marianna Kinsey RN Position: [facility] RN Member Role: Primary Care Nurse Name: Tana Schaefer NP Position: [facility] PCO Associate Professional Member Role: Primary Care Nurse Address: Address: [address] [place] [address]- Name: Karyn Sweeney RN Position: [facility] SN RN Member Role: Primary Care Nurse Care Team Related Persons Name: CLAUDINE ELIZABETH Name: RACHELLE HERNANDEZ Address: [address] [address]
--- OUTSIDE RECORDS SUMMARY | 2024-04-15 21:58 | XMS_ITS | Continuity of Care Document ---
Author Organization [facility] ter Address [address] [place] [id number] Care Team Providers Care Patient Office Rep Name Role Phone Luisa GLASER, Genie Timmons Primary Care Physician Encounter [facility] Date(s): 05/07/22 - 05/09/[address] [id number] Discharge Disposition: A-D/C Home Attending Physician: Maciej Hess MD Admitting Physician: Kristie Davis DO Referring Physician: Not on Staff, Referring MD [...] 2 Refills, Maintenance, 03/31/22 12:12:00 EST, Tablet, [facility]/pharmacy #[id number], Partial fill upon patient request if the [...] times a day, PRN for Spasm, Routine, 05/07/22 22:27:00 EST Start Date: 05/07/22 Stop Date: 05/10/22 Status: Discontinued cyclobenzaprine 10 mg oral tablet PLEASE SEE ATTACHED FOR DETAILED DIRECTIONS Start Date: 05/07/22 Status: Ordered cyclobenzaprine 5 mg oral tablet 1 tablet = 5 mg, By Mouth, 3 times a day, PRN Spasm, for 7 days, # 21 tablet, 0 Refills, Acute 05/16/22 9:03:00 EST, 05/09/22 9:03:00 EST, [facility]/pharmacy #[id number], Partial fill upon patient request if [...] 1 Refills, Maintenance, 05/09/22 9:02:00 EST, Suspension, [facility]/pharmacy #[id number], Partial fill upon patient request if the prescription is for a schedule II opioid drug., 164.3, cm, 04/30/22 11:20:... Start Date: 05/09/22 Status: Ordered oxyCODONE 5 mg oral tablet 2.5 mg, Tablet, By Mouth, Once, PRN for Pain , Moderate, Routine, 05/09/22 11:35:00 EST Start Date: 05/09/22 Stop Date: 05/09/22 Status: Completed ProAir HFA 2 puffs, Inhalation, Every 6 [...] Active Migraine Confirmed Active Myotomy Confirmed Active Results Radiology Reports * Exam Date Time Procedure Performing Provider Status 05/08/22 3:12 PM US Doppler Ext Lower Venous Right Mirna Haney; Auth (Verified) Notes: (US Doppler Ext Lower Venous Right) Reason For Exam: Pain/Tenderness Extremities RESULT: US Doppler Ext Lower Venous Right US Doppler Ext Lower Venous Right Reason: Pain Tenderness Extremities; Clinical Question(s): Thrombus; Order Comment: 05 08 -called for pt at 1010am- per RN, pt is getting blood right now and can be taken in 45 minutes- we will try again closer to 11 if possible COMPARISON: Bilateral lower extremity Doppler ultrasound 03/30/2022. IMAGING TECHNIQUE: Ultrasound of the veins from the groin through the calf was performed using grayscale, color, and spectral Doppler ultrasound assessing for complete compressibility and normal flowcharacteristics. FINDINGS: Common femoral vein: Patent. No thrombosis. Femoral vein: Patent. No thrombosis. Popliteal vein: Patent. No thrombosis. Gastrocnemius veins: The visualized portions are patent without evidence of thrombosis. Peroneal veins: The visualized portions are patent without evidence of thrombosis. Posterior tibial veins: The visualized portions are patent without evidence of thrombosis. Contralateral common femoral vein: Patent. No thrombosis. OTHER FINDINGS: There is diffuse calf edema. IMPRESSION: No evidence of deep venous thrombosis. WSN: [id number] Ordering Physician: Nancy Hurley Dictated By: Kalia Ng MD Dictated Date/Time: 05/08/22 3:58 pm Reviewed By: Kalia Ng MD Signed By: Kalia Ng MD Signed Date/Time: 05/08/22 3:58 pm Transcribed By: NORMA Transcribed Date/Time: 05/08/22 3:56 pm * Exam Date Time Procedure Performing Provider Status 05/07/22 5:[address] Angio Chest Dawna Her; Auth (Ve rified) Notes: (CT Angio Chest) Reason For Exam: PE suspected, Intermediate prob, positive D-dimer,;Other: RESULT: CT Angio Chest EXAMINATION: CT Angio Chest INDICATION: Weakness, fatigue, shortness of breath. Currently undergoing breast cancer treatment. Concern for pulmonary embolism. TECHNIQUE: Spiral CTA of the chest was performed after rapid IV contrast administration without cardiac gating, triggered by an LOLITA on the main pulmonary artery. Images are formatted in multiple planes using 2-D multiplanar and 3-D maximum intensity projection. 55 cc of Omnipaque 300 was administered intravenously. This study was performed without oral contrast. Weight-based protocol using automatic tube modulation was used to optimize exposure parameters. CTDIvol Body: 7.20 mGy, DLP Body: 419 mGy*cm. COMPARISONS: 08/26/2011. ANGIOGRAPHIC FINDINGS: No pulmonary embolism to the subsegmental level. Normal caliber pulmonary arteries. No acute aortic abnormality seen on this study performed without cardiac gating. NON-ANGIOGRAPHIC FINDINGS: Regrader View Findings, Lines and Tubes: None. Trachea and Airways: Patent without evidence of tracheal or endobronchial lesion. Lungs and Pleura: Clear lungs. Moderate right and small left pleural effusions with associated atelectasis. Mediastinum and chapincito: No mass or hematoma. No mediastinal or hilar lymphadenopathy. Diffusely dilated esophagus, consistent with achalasia and similar to prior. There is ingested solid and fluid material in the esophagus. Partially imaged thyroid is unremarkable. Heart: Heart is normal in size. No pericardial effusion. 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 Diaphragm and upper abdomen: No significant abnormality. Bones: No acute abnormality. IMPRESSION: No evidence of pulmonary embolism. Moderate right and small left pleural effusions with associated atelectasis. Diffusely dilated esophagus, similar to prior and consistent with achalasia. I have personally reviewed the images and I agree with this report. WSN: [id number] Ordering Physician: Alaina Hoyt Dictated By: Terrence Maher MD Dictated Date/Time: 05/07/22 6:10 pm Reviewed By: Manoj Valles MD Signed By: Manoj Valles MD Signed Date/Time: 05/07/22 6:15 pm Transcribed By: NORMA Transcribed Date/Time: 05/07/22 5:49 pm * Exam Date Time Procedure Performing Provider Status 05/07/22 2:18 PM Chest 2 Views Frontal and Lat Alda Ayala; Julissa (Verified) Notes: (Chest 2 Views Frontal and Lat) Reason For Exam: Chest Pain;Other: RESULT: Chest 2 Views Frontal and Lat Chest 2 Views Frontal and Lat Hx of Present Illness: diarrhea dizziness, I am dehydrated , able to tolerate PO intake, for a fewdays feeling weakness and fatigue. Shortness of breath on exertion without chest pain. Surgery in oct for breast CA. undergiong txt for breast CA. started CA RX x1 mon; Reason: Other:; Chest Pain; Clinical Question(s): Other: COMPARISON: 06/06/2015 FINDINGS: LINES AND TUBES: None. LUNGS AND PLEURA: No acute infiltrate. Normal pulmonary vascularity. Small pleural effusions bilaterally. Minimal bibasilar atelectasis. No pneumothorax. HEART, MEDIASTINUM AND CHAPINCITO: Heart is normal in size. Normal mediastinal and hilar contour. BONES AND SOFT TISSUES: No acute abnormality. IMPRESSION: No acute infiltrate. Mild bibasilar pleural-parenchymal disease, new since prior study. WSN: [id number] Ordering Physician: Joselyn Harrison Dictated By: Thai Chavez MD Dictated Date/Time: 05/07/22 3:10 pm Reviewed By: Thai Chavez MD Signed By: Thai Chavez MD Signed Date/Time: 05/07/22 3:10 pm Transcribed By: NORMA Transcribed Date/Time: 05/07/22 2:55 pm Vital Signs Most recent to oldest [Reference Range]: 1 2 3 Oxygen Saturation [94-100 %] 95 % (05/09/22 11:50 AM) 98 % (05/09/22 5:00 AM) 98 % (05/08/22 10:00 PM) Pulse Rate [55-90 bpm] 69 bpm (05/09/22 11:50 AM) 77 bpm (05/09/22 5:00 AM) 96 bpm *H* (05/08/22 10:00 PM) Blood Pressure [90-138/55-84 mm Hg] 125/66mm Hg (05/09/22 11:50 AM) 117/69mm Hg (05/09/22 5:00 AM) 147/85mm Hg *H* (05/08/22 10:00 PM) Respiratory Rate [16-30 br/min] 18 br/min (05/09/22 11:54 AM) 18 br/min (05/09/22 11:50 AM) 18 br/min (05/09/22 10:18 AM) Temperature [96.8-100.4 DegF] 98.0 DegF (05/09/22 11:50 AM) 97.5 DegF (05/09/22 5:00 AM) 97.8 DegF (05/08/22 10:00 PM) Mode of Delivery (Oxygen) Room air (05/09/22 11:50 AM) Room air (05/09/22 5:00 AM) Room air (05/08/22 10:00 PM) Blood pressure sites Arm, right (05/09/22 11:50 AM) Arm, right (05/07/22 10:57 PM) Arm, right (05/07/22 4:58 PM) Temperature Route Oral (05/09/22 11:50 AM) Oral (05/09/22 5:00 AM) Oral (05/08/22 10:00 PM) Social History Social History Type Response Smoking Status Never smoker entered on: 08/31/13 Sex Admission evaluation note * Jenn Short DO: MODIFY, MODIFY, MODIFY, MODIFY, MODIFY, MODIFY, MODIFY, MODIFY, PERFORM Event Display: Admission Note Authored Date: [id number] Patient: ??CHRYSTAL DELAROSA ? Age:??66 Years?Sex:??Female?:??1955?? Chief Complaint/Reason for Consultation weakness History of Present Illness Chrystal Delarosa is a 66 year old female with PMH of breast cancer s/p left mastectomy awaiting radiation therapy, achalasia s/p Heller myotomy and??fundoplication, iron deficiency anemia??who presented to ED on 05/07 with weakness. ?? Patient reported feeling dehydrated with dry mouth??over past one week.??The past three days - she has had increased fatigue. She reports having had a normal BM today, followed by 2 loose bowel movements in the PM, which did not have any blood - and felt generalized weakness prompting ED visit. Shedenies fevers, chills, abdominal pain, or urinary symptoms. She had a productive cough one week ago, but that has since resolved. She reports she has been taking ibuprofen 600mg TID and acetaminophen, as well as cyclobenzaprine for pain since the procedure. She reports symptoms of acid reflux with episodes of vomiting, but denies any hematemesis. ?? In ED, vitals were BP 102-125/60-81, HR 87-111, RR 16-22, T afebrile, and O2 on RA. Labs were WBC 12.9 with 83% neutrophils, Hgb 5.7 MCV 70.6, Plt 465, D dimer 1.18, Na 138, K 3.7, Cl108, HCO3 18, AG 12, BUN/Cr 20/0.5, Glucose 86, calcium 7.8, BNP 320, HStrop 27, negative, COVID/influenza/RSV negative. ?? CXR with no acute infiltrate, mild bibasilar pleural-parenchymal disease, new since prior study. CTA chest with no evidence of pulmonary embolism, moderate right and small left pleural effusions withassociated atelectasis, diffusely dilated esophagus similar to prior and consistent with achalasia. ?? On my evaluation of patient in ED, she is resting comfortably. She continues to report feeling tired and having some neck pain, but denies chest pain or shortness of breath. She reports having hadEGD at [facility] in 2019 which was normal, and colonoscopy in 2018 which did not show any polyps. Review of Systems A full review of systems was completed and is otherwise negative except as mentioned in history of present illness. Objective Vital Signs?? Temperature: 98.4 DegF (05/07/22 15:17:00) Temperature Route: Oral (05/07/22 15:17:00) Pulse Rate: 87 bpm (05/07/22 16:58:00) Respiratory Rate: 22 br/min (05/07/22 16:58:00) Systolic Blood Pressure: 125 mm Hg (05/07/22 16:58:00) Diastolic Blood Pressure: 81 mm Hg (05/07/22 16:58:00) Blood pressure sites: Arm, right (05/07/22 16:58:00) Mean Arterial Pressure: 74 mm Hg (05/07/22 15:17:00) Pulse Pressure: 42 mm Hg (05/07/22 15:17:00) Oxygen Saturation: 100 % (05/07/22 16:58:00) Mode of Delivery (Oxygen): Room air (05/07/22 16:58:00) ?? Physical Exam Constitutional: Alert, in no acute distress. Head EENT: Extraocular muscle movement intact.??Dry mucous membranes.?? Neck: Supple. No JVD. Cardiovascular: S1S2 regular. No murmurs, rubs or gallops. Respiratory: Clear to auscultation. No wheezing or crackles. No use of accessory muscles. Gastrointestinal: Abdomen soft, non-tender, non-distended. Normal bowel sounds. Extremities: Asymmetric right lower extremity edema. No lower extremity pitting??edema. Neurologic: AAOx3, Speech normal. No focal neurological deficits. Skin: No rash. Psychiatric: Normal mood and affect. Assessment/Plan Chrystal Delarosa is a 66 year old female with PMH of breast cancer s/p left mastectomy awaiting radiation therapy, achalasia s/p Heller myotomy and fundoplication, iron deficiency anemia??who presented to ED on 05/07 with weakness. ?? Weakness and fatigue Symptomatic microcytic anemia Hx of iron deficiency anemia Patient presenting with symptoms of??weakness and fatigue over past few days D dimer elevated, CTA negative for PE. She is found to have significant anemia of Hgb 5.7 MCV 70.6 (baseline Hgb 9?) She denies bright red blood or melena, hematemesis Patient has been taking ibuprofen 600mg TID for the past few weeks, she reports episodes of intermittent reflux with vomiting episodes Endoscopies have usually been at [facility]: pt reports EGD in 2019 was normal, colonoscopy in 2018 was without polyps ?? Plan: -Transfuse 1U??pRBC -Monitor Hgb -Monitor??for signs of bleeding -Obtain hemolysis labs and iron panel -Obtain records from [facility] -Start IV PPI BID -GI consultation ?? Neck spasm Patient with full ROM of neck Reports discomfort since mastectomy procedure ?? Plan: -Continue cyclobenzaprine 10mg TID PRN spasm -Continue??tylenol??PRN pain ?? Asymmetric??right lower extremity edema ?? Plan: -Obtain Doppler US RLE to r/o DVT ?? Chronic stable medical conditions Breast cancer: continue anastrozole Achalasia: continue PPI and??sucralfate ?? Quality Measures Diet: NPO after MN, Regular DVT Prophylaxis: SCDs Code: FULL ?? Patient's care and plan discussed with attending, Dr. Hurley. ?? Jenn Short DO Internal Medicine PGY2 [id number] Histories Allergies Allergies ?(Active and Proposed Allergies Only) Other Food Allergy? (Severity: Unknown severity, Onset: Unknown) ?Comments: sunflower seeds throat swells up ?? Past Medical History/Problem List Active Problems??(9) Achalasia Asthma Cancer of central portion of left female breast Cholecystectomy Family history of breast cancer H/O: GI Bleed History of fundoplication Migraine Myotomy ?? Past Surgical History EGD, laparoscopic takedown of [...] by brushing or washing (separate procedure): 07/20/11 ?? Social History Denies tobacco, alcohol or recreational drug use. ?? Family History Aunt (Maternal): Breast cancer Cousin (Maternal Cousns): Breast cancer Medications Home Medications Acetaminophen (acetaminophen 500 mg oral tablet)?TAKE 1 TABLET BY MOUTH EVERY 6 HOURS NEEDED FOR PAIN *NO MORE THAN 4 TABS A DAY Albuterol (ProAir HFA)?2?puff(s)?Inhalation?Every 6 hours?as needed?Wheezing/Shortness of Breath Anastrozole (anastrozole 1 mg oral tablet)?1?tab(s)?1?Milligram?By Mouth?Daily Cyclobenzaprine (cyclobenzaprine 10 mg oral tablet)?PLEASE SEE ATTACHED FOR DETAILED DIRECTIONS Ibuprofen (ibuprofen 600 mg oral tablet)?TAKE 1 TABLET BY MOUTH EVERY 6 HOURS ALTERNATING WITH TYLENOL Omeprazole?By Mouth?Daily Sucralfate (Carafate Tablet)?1?gram?By Mouth?3 times a day before meals and bedtime Results Recent Labs BLOOD COUNT & DIFF WBC 12.9 k/mm3 (High)?? 05/07/2022 14:27 RBC 3.13 m/mm3 (Low)?? 05/07/2022 14:27 Hgb 5.7 Gm/dL (Critical)?? 05/07/2022 14:27 Hct 22.1 % (Low)?? 05/07/2022 14:27 MCV 70.6 femtoliters (Low)?? 05/07/2022 14:27 MCH 18.2 pg (Low)?? 05/07/2022 14:27 MCHC 25.8 g/dL (Low)?? 05/07/2022 14:27 Platelet Count 465 k/mm3 (High)?? 05/07/2022 14:27 RDW-SD 46.7 femtoliters ()?? 05/07/2022 14:27 MPV 11.2 femtoliters ()?? 05/07/2022 14:27 Nucleated RBC (Automated) 0.2 #/100 WBC'S ()?? 05/07/2022 14:27 Abs. NRBC 0.0 k/mm3 ()?? 05/07/2022 14:27 Abs. Neut 10.7 k/mm3 (High)?? 05/07/2022 14:27 Abs. Lymph 0.8 k/mm3 ()?? 05/07/2022 14:27 Abs. [place] 1.0 k/mm3 (High)?? 05/07/2022 14:27 Abs. Eo 0.3 k/mm3 ()?? 05/07/2022 14:27 Abs. Baso 0.1 k/mm3 ()?? 05/07/2022 14:27 Neut % 83.0 % (High)?? 05/07/2022 14:27 Lymph % 6.0 % (Low)?? 05/07/2022 14:27 [place] % 8.0 % ()?? 05/07/2022 14:27 Eos % 2.0 % ()?? 05/07/2022 14:27 Baso % 1.0 % ()?? 05/07/2022 14:27 RBC Morphology MODERATE ()?? 05/07/2022 14:27 Platelet Estimate INCREASED ()?? 05/07/2022 14:27 ?? CARDIAC Nt-Probnp 320 pg/mL (High)?? 05/07/2022 14:27 High Sensitivity Troponin (HSTnT) 27 ng/L (High)?? 05/07/2022 14:27 ?? CHEM GENERAL Sodium 138 mmol/L ()?? 05/07/2022 14:27 Potassium 3.7 mmol/L ()?? 05/07/2022 14:27 Chloride 108 mmol/L (High)?? 05/07/2022 14:27 Bicarbonate Level 18 mmol/L (Low)?? 05/07/2022 14:27 Anion Gap 12 ()?? 05/07/2022 14:27 Glucose Level 86 mg/dL ()?? 05/07/2022 14:27 BUN 20 mg/dL ()?? 05/07/2022 14:27 Creatinine-Blood 0.5 mg/dL ()?? 05/07/2022 14:27 Estimated GFR Creatinine 104 ML/MIN/1.73 M2 ()?? 05/07/2022 14:27 Calcium 7.8 mg/dL (Low)?? 05/07/2022 14:27 ?? COAG D-Dimer 1.18 mg/L FEU (High)?? 05/07/2022 14:27 ?? ENDOCRINE/TUMOR MARKER Serum Qual NEGATIVE mIU/mL ()?? 05/07/2022 14:27 ?? HEME OTHER Hold Blue Top SPECIMEN DISCARDED AFTER 4 HOURS. ()?? 05/07/2022 14:27 ?? VIROLOGY Influenza A PCR NEGATIVE ()?? 05/07/2022 15:53 Influenza B PCR NEGATIVE ()?? 05/07/2022 15:53 RSV PCR NEGATIVE ()?? 05/07/2022 15:53 COVID-19 PCR Specimen Source NASAL ()?? 05/07/2022 15:53 COVID-19 PCR Result NEGATIVE ()?? 05/07/2022 15:53 COVID-19 POC Result NEGATIVE ()?? 05/07/2022 13:37 ?? * Mei GLASER, Nancy Zuñiga: PERFORM Event Display: Admission Note Authored Date: [id number] Attending attestation.??Patient seen and examined on May 07. Reviewed EARL AGUILAR. I have independently examined the patient and confirmed physical exam findings. Agree with assessment and plan as outlined in Dr. Short's note. ?? 66-year-old woman with history of recently diagnosed invasive lobular breast cancer, asthma, achalasia, who presented to the emergency room for evaluation of increased thirst and weakness, dyspnea. Upon presentation she was afebrile, tachycardic, rest of the vital signs within normal limits. Labs notable for White cell count 12.9 with left shift, hemoglobin 5.7, hematocrit 22.1, platelet count 465. D-dimer 1.18, chloride 108, bicarb 18. BNP 328, high-sensitivity troponin 27. COVID-19, influenzaA/B, RSV PCR's were negative. Two-view chest x- ray was reported as no acute infiltrate. CT angio ofthe chest was reported as no evidence of pulm embolism. Moderate right and small left pleural effusions with associated atelectasis. Diffusely dilated esophagus consistent with achalasia. She underwent type and screen and was ordered blood transfusion. ?? Macrocytic anemia: Most recent hemoglobin in our system was from December 2021 at which time her hemoglobin was 9.??Hasn't started chemo or radiation yet.??Obtain iron studies,??transfuse to keep hemoglobin??closer to 7. EKG study * Event Display: ECG 12-Lead Authored Date: Please click on pdf link to open report * Event Display: ECG 12-Lead Authored Date: Ventricular Rate: 110 BPM Atrial Rate: 110 BPM P-R Interval: 152 ms QRS Duration: 76 ms Q-T Interval: 326 ms QTC Calculation(Bazett): 441 ms P Fiatt: 49 degrees R Fiatt: -11 degrees T Fiatt: 71 degrees Poor data quality, interpretation may be adversely affected Sinus tachycardia with Premature atrial complexes Low voltage QRS Cannot rule out Anterior infarct , age undetermined Abnormal ECG When compared with ECG of 22-JUN-2013 19:31, Premature atrial complexes are now Present Minimal criteria for Anterior infarct are now Present Nonspecific T wave abnormality now evident in Anterior leads Confirmed by SARAH DE LA ROSA ([id number]) on 05/09/2022 9:59:06 PM Vill[place]: SARAH DE LA ROSA [facility] Progress note * Shruthi Holley: SIGN, MODIFY, PERFORM, SIGN, VERIFY Event Display: [facility] Authored Date: [id number] Patient: CHRYSTAL DELAROSA Age: 66 years Sex: Female : 1955 Associated Diagnoses: None Author: Shruthi Holley Findings Narrative/Incidental Pt AOx3. Pt refused Carafate tablet because it makes her nauseous. Pt received all other medications as ordered and PRNs as appropriate. Pt discharged. Pt expressed understanding of discharge instructions. Pt's IVs removed, tips intact. Pt remains on unit waiting for her son to pick her up.. * Shruthi Holley: PERFORM Event Display: [facility] Authored Date: [id number] Pt left the unit via wheelchair * Billy Bueno: MODIFY, MODIFY, PERFORM Event Display: [facility] Authored Date: [id number] Patient: ??CHRYSTAL DELAROSA ? Age:??66 Years?Sex:??Female?:??1955?? Subjective Chart, Labs, and Imaging reviewed. Patient Seen and examined at bedside. She reports feeling generally well. ??Endorses improvement with regards to shortness of breath and fatigue??since receiving 1??unit of blood.?? Actively receiving second unit of blood??this morning.?? No CP, AP, LANE, dizziness, lightheadedness,??SOB. ?? Discussed with GI,??colonoscopy/endoscopy not currently indicated??as suspicion of GIB??is low. ??Recommended continuing PPI,??transfuse as needed,??discharge when stable with outpatient follow-up with GI. Review of Systems Constitutional: Mild fatigue and weakness??no f/c, HEENT: No sore throat, bleeding in mouth, oral ulcers, vision changes Skin: No jaundice, rash, pruritus Respiratory: No SOB, cough, wheezing Cardiac: No Chest pain/pressure, palpitations, orthopnea, claudication, edema GI: No N/v, abdominal discomfort, bloating, diarrhea, constipation, Heartburn : No dysuria, retention, flank pain, nocturia, incontinence Neuro: No LANE, Dizziness, weakness/ paresthesia, Neuropathy, confusion MSK: No Arthralgias, Myalgias Heme/ Lymph: No bleeding, bruising, clotting problems, lymphadenopathy Endo: No??polyuria, polydipsia, polyphagia, heat or cold intolerance, changes in skin or hair Psych: No changes in mood, SI/HI, sleep changes ?? All other ROS negative except as stated in HPI Objective ?? Physical Exam Temperature?97.8 ?(08:49) Systolic Blood Pressure?108 ?(10:43) Diastolic Blood Pressure?65 ?(10:43) Pulse?76 ?(10:43) SpO2?98 ?(10:43) Respiratory Rate?24 ?(11:23) ? Constitutional: Awake, alert and oriented x4. NAD. Lying comfortably in bed. HEENT: Normocephalic. Atraumatic. PERRLA, EOMI. Respiratory: Clear to auscultation. No wheezing, rales or rhonchi. Speaking in full sentences comfortably on room Air. Cardiovascular: RRR. No murmurs, rubs or gallops. No JVD. Capillary Refill Less than one second in BL??UE/ LE. 2+ radial and pedal pulses. Gastrointestinal: Abdomen soft, non-tender, non-distended. + bowel sounds. no organomegaly Neurologic: Smooth, coordinated, and spontaneous movement of extremities. MSK: 5/5 strength against resistance in bilateral UE and LE Skin: Skin??pink warm dry.?? Hx mastectomy with reconstruction to left breast. No new rashes or lesions. ??No petechiae, no purpura.?? No deformity of fingernails. Extremities: No cyanosis or clubbing. No gross deformities. Normal range of motion. Psychiatric: appropriate mood and affect. Patient is cooperative during exam.?? Assessment/Plan Assessment:??66-year-old female PMHx breast cancer s/p left mastectomy awaiting radiation, achalasia s/p Heller myotomy and fundoplication, iron deficiency anemia (not currently taking iron supplementation D/T intolerance) presenting with weakness x4 days. Anemic on presentation. Admitted for management of symptomatic anemia. ?? Other iron deficiency anemia (D50.8):??Patient with history greater than 10 years of iron deficiency anemia. She reports that she??has not been taking iron supplementation. Presenting with weakness x4 days, SOB. Hemoglobin on presentation??5.7, received 1 unit of blood. Repeat hemoglobin 6.7, received a second unit of blood. No chest pain, shortness of breath improved.??No active bleeding. No jaundice. Reticulocyte count slightly elevated 3.4 however do not expect hemolysis currently. Iron level 18 (NL 30-160). CT angio negative for PE. CXR negative for infiltrate, shows small bilateral pleural effusions. Do not suspect any infectious process currently. Current presentation most consistent w ith symptomatic iron deficiency anemia Plan: -GI??consulted on admission,??discussed case.??Does not feel endoscopy/colonoscopy??is necessary??at this time??given??extensive history??of iron deficiency anemia??and in no apparent active bleeding.??Recommended outpatient follow-up??post- discharge. -H&H -Transfuse for hemoglobin below??7.0 -Monitor for any signs of bleeding -Continue??pantoprazole.??GI recommends daily PPI??on discharge. -Probable discharge tomorrow??pending??remains asymptomatic??and??H&H stable. ?? Leg edema (R60.0):??RLE??swelling noted??on admission no. ??None visible during my examination today.?? Doppler RLE??ordered??prior to admission??and??pending.?? Patient reports no??lower extremity??t enderness,??no??excessive warmth??or cold temperature to skin??of RLE. ??DVT??unlikely ?? Chronic/stable conditions: Hx??left??mastectomy: Neck pain:??Patient with history??of left-sided mastectomy??with some reconstruction,??reports??neck stiffness/tenderness since procedure. ??Otherwise stable. ??Continue??cyclobenzaprine/Tylenol. ? Quality Measures Diet:??Regular Code Status:??Full code: Confirmed with patient 05/08/2022 DVT PPX:??SCDs OMN/ Dispo:??Symptomatic anemia, blood transfusions ?? * Aline Jules: PERFORM Event Display: Progress Note Hospital Authored Date: Attestation Seen in conjunction with AP Resident. ??I personally performed all components of the visit including the history of present illness, examination, and medical decision making. ??I have discussed the case and its management with the AP resident and agree with the findings and plan as documented in the resident's note except where otherwise noted. ?? In summary, this is a??66-year-old??female with past medical history of??iron deficiency anemia.?? Historically, she has had a difficult time with oral supplementation??given side effect of GI upset.?? She??she is trialed many different formulations of the medications, most??recently ferrous fumarate.?? She has not been taking this medication for couple of months secondary to GI upset.?? No??bleeding symptoms including??gum,??black/tarry stools, BRBPR.?She has intermittently needed transfusions in the past secondary to iron deficiency. ??Her iron levels are consistently low. ?? She has been transfused??2 units, sounding like she may benefit from IV??iron infusions as an outpatient. Given that she is hemodynamically stable, okay for repeat H&H in the morning, and likely discharge ?? Shakila Vega PA-C Note * Shruthi Holley: PERFORM Event Display: Discharge/Transfer Note Hospital Authored Date: [id number] Nursing Discharge Note Entered On: 05/09/2022 10:38 EST Performed On: 05/09/2022 10:38 EST by Shruthi Holley Nursing Discharge Note 2 Discharge Time : 05/09/2022 14:36 EST Patient Left Unit Via : Wheelchair Patient Accompanied Off Unit with : Responsible adult DC Instructions Provided & Signed by Pt : Yes Patient Understands D/C Instructions : Yes Patient Instructions Discharge Signed : Yes Did Pt have Specialty Bed or Wound Vac : No Shruthi Holley - 05/09/2022 14:36 EST Discharge Level of Care at Discharge : Home/Shelter/Foster Care Shruthi Holley - 05/09/2022 10:38 EST * Aline Jules: MODIFY, PERFORM, MODIFY Event Display: Discharge/Transfer Note Hospital Authored Date: [id number] Patient: ??CHRYSTAL DELAROSA ? Age:??66 Years?Sex:??Female?:??1955?? Patient Information Discharge Location: Primary Care Physician: Genie Moran MD Admit Date/Time: 05/07/22 17:56 Discharge Date:??05/09/2022 07:53 Discharge Disposition Discharge Disposition: Home: No Services Discharge Diagnosis Iron deficiency anemia (D50.9) Symptomatic anemia (D64.9) _ Discharge Medications Acetaminophen (acetaminophen 500 mg oral tablet)?TAKE 1 TABLET BY MOUTH EVERY 6 HOURS NEEDED FOR PAIN *NO MORE THAN 4 TABS A DAY Albuterol (ProAir HFA)?2?puff(s)?Inhalation?Every 6 hours?as needed?Wheezing/Shortness of Breath Anastrozole (anastrozole 1 mg oral tablet)?1?tab(s)?1?Milligram?By Mouth?Daily Cyclobenzaprine (cyclobenzaprine 5 mg oral tablet)?1?tab(s)?5?Milligram?By Mouth?3 times a day?as needed?Spasm?for 7?Days Ferrous Fumarate (ferrous fumarate 300 mg oral tablet)?1?tab(s)?300?Milligram?By Mouth?Daily Ibuprofen (ibuprofen 600 mg oral tablet)?TAKE 1 TABLET BY MOUTH EVERY 6 HOURS ALTERNATING WITH TYLENOL Omeprazole (omeprazole 40 mg oral enteric coated capsule)?1?capsule?40?Milligram?By Mouth?2 times a day Sucralfate (Carafate Tablet)?1?gram?By Mouth?3 times a day before meals and bedtime Medications Started cyclobenzaprine: PRN spasm omeprazole Medications Discontinued None Doses Changed None Allergies Allergies ?(Active and Proposed Allergies Only) Other Food Allergy? (Severity: Unknown severity, Onset: Unknown) ?Comments: sunflower seeds throat swells up ? PCP Follow-Up/Heads-Up 1.?? Symptomatic anemia??likely secondary to noncompliance with??iron supplementation (GI upset side effects),??trialing ferrous gluconate, may need IV iron infusions as outpatient 2. please recheck H&H in 1 week Future Appointments Wednesday 12:00 PM EST ?? With: Camila Johnson Where: Re[facility] Adult Aud 2022 1:40 PM EST ?? With: Patricia Pride Where: [facility] Plastic Surgery [address] [place] [address] - Wednesday 9:40 AM EST ?? With: Mariama Serrato Where: [facility] Plastic Surgery [address] [place] [address] - Wednesday 1:00 PM EST ?? With: Where: [facility] Radiology [facility] [address], [address] [place] [address]- Hospital Course Ms. Delarosa is a 66 yo F with PMHx breast cancer s/p left mastectomy (awaiting radiation, followed by Dr. Wheeler), achalasia (s/p Heller myotomy/fundoplication), longstanding history of SARAHI (not currently taking supplementation given side effects) who presented with generalized weakness x4 to 5 days. ED work-up remarkable for symptomatic anemia with hemoglobin 5.7. Received 2 units PRBCs. No evidence or history to suggest GI bleed, evaluated by GI with no recommendation for further work-up from their perspective. Appears etiology of anemia likely secondary to longstanding SARAHI without supplementation. Historically, she has had a challenging time with side effect profile of iron supplementation,may require IV iron infusions on an outpatient basis. ?? 05/09/2022 VSS. Seen and examined at bedside this AM. Eager for discharge, states that she feels well, nearing baseline. No complaints. Tolerating diet. Denies f/c, dizziness, CP, palpitations, SOB, abdominal pain, constipation, N/V/D. ?? Discussed trialing ferrous fumarate (which she currently has Rx for at home) after small amount of food to see if she can tolerate this better. She is also willing to try gummy vitamin with iron in it to see if she can get additional absorption. She may benefit from IV iron supplementation in the future if side effect profile is too potent. Objective Assessment and Plan ?? . Physical Exam Temperature?97.5 ?(06:03) Systolic Blood Pressure?117 ?(06:03) Diastolic Blood Pressure?69 ?(06:03) Pulse?77 ?(06:03) SpO2?98 ?(06:03) Respiratory Rate?18 ?(06:03) ? General: Alert, NAD. HEENT: Normocephalic. Respiratory: Clear to auscultation. No wheezing, rales or rhonchi. Cardiovascular: RRR. No murmurs, rubs or gallops. Gastrointestinal: Abdomen soft, non-tender, non-distended. + bowel sounds. Neurologic: Moves all extremities spontaneously. Skin: No rashes or lesions. Extremities: No cyanosis or clubbing. No gross deformities. Normal range of motion. Psychiatric: appropriate mood and affect Consultants GI???last seen 05/08 Patient Education Titles Ferrous Gluconate Oral Tablet?? Follow-Up Appointments Added Follow Up ?Time Frame ?Comments Luisa GLASER, Genie Timmons Patient Instructions You were admitted with??weakness, where we found that your blood counts??were low, requiring 2 units of blood to be transfused.?? This is likely secondary to your baseline iron deficiency anemia. ?? We recommend that you take your current iron supplement with a small amount of food to try for lessstomach upset. The GI team had also mentioned trialing a gummy vitamin with iron in it. ?? There is also a medication known as slow Fe (you can look up slowFe.Appiphany) which people sometimes have an easier time with. This can be found over the counter at many pharmacies. We recommend that you take Vitamin C with any supplementation to help improve absorption. ?? We recommend that you call your PCP for follow up appointment. It would be best to have your blood levels checked in about 1 week to ensure they are still doing well. Post Discharge Care Discharge ?05/09/22 8:59:00 EST Discharge Prescriptions ?None, ??05/09/22 8:59:00 EST Home Health Face to Face ^HomeHealthFTF Results Discharge Labs BLOOD BANK Blood Type O Positive ()?? 05/07/2022 16:18 Antibody Screen Negative ()?? 05/07/2022 16:18 RBC Unit ID [id number] ()?? 05/08/2022 06:20 RBC Available IS ()?? 05/08/2022 06:20 ?? BLOOD COUNT & DIFF WBC 8.6 k/mm3 ()?? 05/09/2022 00:14 RBC 3.51 m/mm3 (Low)?? 05/09/2022 00:14 Hgb 7.2 Gm/dL (Low)?? 05/09/2022 00:14 Hct 25.9 % (Low)?? 05/09/2022 00:14 MCV 73.8 femtoliters (Low)?? 05/09/2022 00:14 MCH 20.5 pg (Low)?? 05/09/2022 00:14 MCHC 27.8 g/dL (Low)?? 05/09/2022 00:14 Platelet Count 361 k/mm3 ()?? 05/09/2022 00:14 RDW-SD 58.5 femtoliters (High)?? 05/09/2022 00:14 MPV 10.9 femtoliters ()?? 05/09/2022 00:14 Nucleated RBC (Automated) 0.2 #/100 WBC'S ()?? 05/09/2022 00:14 Abs. NRBC 0.0 k/mm3 ()?? 05/09/2022 00:14 Abs. Neut 10.7 k/mm3 (High)?? 05/07/2022 14:27 Abs. Lymph 0.8 k/mm3 ()?? 05/07/2022 14:27 Abs. [place] 1.0 k/mm3 (High)?? 05/07/2022 14:27 Abs. Eo 0.3 k/mm3 ()?? 05/07/2022 14:27 Abs. Baso 0.1 k/mm3 ()?? 05/07/2022 14:27 Neut % 83.0 % (High)?? 05/07/2022 14:27 Lymph % 6.0 % (Low)?? 05/07/2022 14:27 [place] % 8.0 % ()?? 05/07/2022 14:27 Eos % 2.0 % ()?? 05/07/2022 14:27 Baso % 1.0 % ()?? 05/07/2022 14:27 RBC Morphology MODERATE ()?? 05/07/2022 14:27 Platelet Estimate INCREASED ()?? 05/07/2022 14:27 Retic Count 3.4 % (High)?? 05/07/2022 14:27 Retic Count Corrected 1.7 % ()?? 05/07/2022 14:27 Retic Production Index 0.8 % (Low)?? 05/07/2022 14:27 ? CARDIAC Nt-Probnp 320 pg/mL (High)?? 05/07/2022 14:27 High Sensitivity Troponin (HSTnT) 27 ng/L (High)?? 05/07/2022 14:27 ?? CHEM GENERAL Sodium 138 mmol/L ()?? 05/09/2022 00:14 Potassium 4.2 mmol/L ()?? 05/09/2022 00:14 Chloride 105 mmol/L ()?? 05/09/2022 00:14 Bicarbonate Level 25 mmol/L ()?? 05/09/2022 00:14 Anion Gap 8 ()?? 05/09/2022 00:14 Glucose Level 78 mg/dL ()?? 05/08/2022 04:46 BUN 13 mg/dL ()?? 05/09/2022 00:14 Creatinine-Blood 0.5 mg/dL ()?? 05/09/2022 00:14 Estimated GFR Creatinine 104 ML/MIN/1.73 M2 ()?? 05/09/2022 00:14 Calcium 7.4 mg/dL (Low)?? 05/08/2022 04:46 Bilirubin, Total 0.2 mg/dL ()?? 05/07/2022 14:27 Bilirubin, Direct <0.2 mg/dL ()?? 05/07/2022 14:27 Bilirubin, Indirect Direct bilirubin is less than the measureable limit. Therefore, indirect mg/dL ()?? 05/07/2022 14:27 Iron Level 18 mcg/dL (Low)?? 05/07/2022 14:27 Iron Binding Capacity, Unsaturated 213 mcg/dL ()?? 05/07/2022 14:27 Iron Binding Capacity, Estimated Total 231 mcg/dL ()?? 05/07/2022 14:27 % Iron Saturation 8 % (Low)?? 05/07/2022 14:27 Ferritin Level 9 ng/mL (Low)?? 05/07/2022 14:27 ?? COAG D-Dimer 1.18 mg/L FEU (High)?? 05/07/2022 14:27 ? ENDOCRINE/TUMOR MARKER Serum Qual NEGATIVE mIU/mL ()?? 05/07/2022 14:27 ? HEME OTHER Hold Blue Top SPECIMEN DISCARDED AFTER 4 HOURS. ()?? 05/07/2022 14:27 ? VIROLOGY Influenza A PCR NEGATIVE ()?? 05/07/2022 15:53 Influenza B PCR NEGATIVE ()?? 05/07/2022 15:53 RSV PCR NEGATIVE ()?? 05/07/2022 15:53 COVID-19 PCR Specimen Source NASAL ()?? 05/07/2022 15:53 COVID-19 PCR Result NEGATIVE ()?? 05/07/2022 15:53 COVID-19 POC Result NEGATIVE ()?? 05/07/2022 13:37 ? Imaging(s) CT Angio Chest ?? 05/07/2022 17:34??by Manoj Valles MD ?IMPRESSION: No evidence of pulmonary embolism. Moderate right and small left pleural effusions with associated atelectasis. Diffusely dilated esophagus, similar to prior and consistent with achalasia. I have personally reviewed the images and I agree with this report. ?? US Doppler Ext Lower Venous Right ?? 05/08/2022 15:12??by Kalia Ng MD ??IMPRESSION: No evidence of deep venous thrombosis. ? Consults(s) GI ??Consultation Note ?? 05/08/2022 16:56??by Riaz Gutiérrez MD Attending Attestation: I have seen and evaluated this patient. I have discussed the case and its management with the fellow and agree with the findings and plan as documented in the fellow???s note. Patient has long, LONG history of Fe- deficiency anemia. Eats no dietary iron to speak of, won't takeoral iron supplements, and has received IV iron in the past. Has been extensively worked up for this ad nauseam. There is really no useful role repeating this workup. Would try to find an oral iron supplement that does not give her nausea or constipation. No role for repeat endoscopy. ? 31??minutes spent on discharge * Shruthi Holley: PERFORM Event Display: Patient Education/Instruction Authored Date: [id number] Inpatient Adult Discharge Instructions [address] [address] Name: CHRYSTAL DELAROSA : 1955 Visit: 05/07/2022 17:56:00 Current Date: 05/09/2022 10:39 Account: [id number] Inpatient Adult Discharge Instructions We would like [...] and their families. Surveys are administered by [employer] ?? If further treatment with your primary care physician or another doctor is recommended, it is important for you to keep the appointment. Call your primary care physician or return to the Emergency Department immediately if your condition worsens, fails to improve, or new symptoms develop. If you need to find a doctor, you can call [facility] for a referral at [phone] or toll free at [phone] or log in to [email or web address].. ?? You can view and manage your care through the patient portal or by using a health care jorge of your choosing. [employer] is a website that allows you to securely view your medical information including your hospital discharge summary, office visit summaries, medications and follow-up visits. You can also request appointments, renew medications, and request access to your medical information using a health care jorge of your choosing, or just ask a question. You can enroll at [email or web address] or register during your next office visit. You have been discharged from [facility], Patient Care Unit: S2. If you have any questions regarding these instructions after you leave, please call us and we will be happy to assist you. 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 You may have had other tests and procedures not included in this list. Please discuss all test results with your provider. B Type Natriuretic Peptide Basic Metabolic Panel BUN CBC CBC w/ Differential COVID-19 RNA POC COVID-19, RSV, and Flu A/B, Rapid PCR Creatinine D-DIMER FERRITIN High??Sensitivity??Troponin T Hold Blue Top Tube IRON & TIBC Lytes Serum Qualitative RETICULOCYTE COUNT TOTAL AND DIRECT BILIRUBIN Type and Screen CT Angio Chest US Doppler Ext Lower Venous Right XR Chest 2 Views Frontal and Lat Primary Care Provider Luisa GLASER, Genie Timmons Advance Directive Health Care Proxy on File Yes - Health Care Proxy No qualifying data available. Discharge Vitals Temperature: 97.5 DegF Pulse Rate: 77 bpm Respiratory Rate: 18 br/min Systolic Blood Pressure: 117 mm Hg Diastolic Blood Pressure: 69 mm Hg Oxygen Saturation: 98 % Studies Pending All tests and labs ordered during this hospital stay have been completed unless listed below. Please discuss all pending results with your provider listed above in these instructions. ?? Add On Lab Order Transfuse RBCs What to do next Instructions From Your Doctor You were admitted with??weakness, where we found that your blood counts??were low, requiring 2 units of blood to be transfused.?? This is likely secondary to your baseline iron deficiency anemia. ?? We recommend that you take your current iron supplement with a small amount of food to try for lessstomach upset. The GI team had also mentioned trialing a gummy vitamin with iron in it. ?? There is also a medication known as slow Fe (you can look up slowFe.Appiphany) which people sometimes have an easier time with. This can be found over the counter at many pharmacies. We recommend that you take Vitamin C with any supplementation to help improve absorption. ?? We recommend that you call your PCP for follow up appointment. It would be best to have your blood levels checked in about 1 week to ensure they are still doing well. Discharge Orders Scheduled Follow-Up Appointments Wednesday 12:00 PM EST ?? With: Camila Johnson Where: Rehab Adult Aud 2022 1:40 PM EST ?? With: Patricia Pride Where: [facility] Plastic Surgery [address] [place] [id number]- Wednesday 9:40 AM EST ?? With: Mariama Serrato Where: [facility] Plastic Surgery [address] [place] [address] - Wednesday 1:00 PM EST ?? With: Where: [facility] Radiology [facility] [address], [address] [place] [address]- You Need to Schedule the Following Appointments Follow Up with??Luisa GLASER, Genie Timmons When?? Where: [address] [place] [address] [address] [place] [address]- Discharge Medications CHRYSTAL DELAROSA :1955 Visit Date:05/07/2022 Medications: Please continue your medications until treatment is completed or stopped by your provider. Medications not listed below should be discontinued. Discuss any questions related to medications with your provider. What How Much When Instructions Next Dose New Ferrous Fumarate (ferrous fumarate 300 mg oral tablet) 1 tab(s) Oral Daily 9am 05/10/22 Changed Cyclobenzaprine (cyclobenzaprine 5 mg oral tablet) 1 tab(s) Oral 3 times a day as needed for Spasm Duration: 7 Days Pickup at [facility]/pharmacy #2339 As needed Changed Omeprazole (omeprazole 40 mg oral enteric coated capsule) 1 capsule Oral Twice a day Pickup at [facility]/pharmacy #2339 9pm 05/09/22 Unchanged Acetaminophen (acetaminophen 500 mg oral tablet) TAKE 1 TABLET BY MOUTH EVERY 6 HOURS NEEDED FOR PAIN *NO MORE THAN 4 TABS A DAY ?? As needed Unchanged Albuterol (ProAir HFA) 2 puff(s) Inhalation Every 6 hours as needed for Wheezing/Shortness of Breath As needed Unchanged Anastrozole (anastrozole 1 mg oral tablet) 1 tab(s) Oral Daily 9am 05/10/22 Unchanged Ibuprofen (ibuprofen 600 mg oral tablet) TAKE 1 TABLET BY MOUTH EVERY 6 HOURS ALTERNATING WITH TYLENOL ?? As needed Unchanged Sucralfate (Carafate Tablet) 1 gram Oral 3 times a day before meals and bedtime Next meal Pharmacy Information [facility]/pharmacy #[id number]: [address] [place] [phone] ?? What How Much When Comments Stop Taking Ondansetron (Zofran ODT 4 mg oral tablet, disintegrating) 4 Milligram Oral Every 8 hours as needed for Nausea & Vomiting Test Results Below is a partial list of the most recent Laboratory test results done prior to this discharge. You may have had other tests and procedures not included in this list. Please discuss all test resultswith your provider. RBC Available - PT (05/08/2022) RBC Unit ID - [id number] (05/08/2022) B Type Natriuretic Peptide (05/07/2022) ???Nt-Probnp - 320 pg/mL Basic Metabolic Panel (05/08/2022) ???Sodium - 138 mmol/L???Potassium - 3.7 mmol/L???Chloride - 108 mmol/L???Bicarbonate Level - 23 mmol/L???Anion Gap - 7???Glucose Level - 78 mg/dL???BUN - 15 mg/dL???Creatinine-Blood - 0.5 mg/dL???Estimated GFR Creatinine - 104 ML/MIN/1.73 M2???Calcium - 7.4 mg/dL BUN (05/09/2022) ???BUN - 13 mg/dL CBC (05/09/2022) ???WBC - 8.6 k/mm3???RBC - 3.51 m/mm3???Hgb - 7.2 Gm/dL???Hct - 25.9 %???MCV - 73.8 femtoliters???MCH - 20.5 pg???MCHC - 27.8 g/dL???Platelet Count - 361 k/mm3???RDW-SD - 58.5 femtoliters???MPV - 10.9 femtoliters???Nucleated RBC (Automated) - 0.2 #/100 WBC'S???Abs. NRBC - 0.0 k/mm3 CBC w/ Differential (05/07/2022) ???WBC - 12.9 k/mm3???RBC - 3.13 m/mm3???Hgb - 5.7 Gm/dL???Hct - 22.1 %???MCV - 70.6 femtoliters???MCH - 18.2 pg???MCHC - 25.8 g/dL???Platelet Count - 465 k/mm3???RDW-SD - 46.7 femtoliters???MPV - 11.2 femtoliters???Nucleated RBC (Automated) - 0.2 #/100 WBC'S???Abs. NRBC - 0.0 k/mm3???Abs. Neut - 10.7 k/mm3???Abs. Lymph - 0.8 k/mm3???Abs. [place] - 1.0 k/mm3???Abs. Eo - 0.3 k/mm3???Abs. Baso - 0.1 k/mm3???Neut % - 83.0 %???Lymph % - 6.0 %???[place] % - 8.0 %???Eos % - 2.0 %???Baso % - 1.0 %???RBC Morphology - MODERATE???Platelet Estimate - INCREASED COVID-19 RNA POC (05/07/2022) ???COVID-19 POC Result - NEGATIVE COVID-19, RSV, and Flu A/B, Rapid PCR (05/07/2022) ???Influenza A PCR - NEGATIVE???Influenza B PCR - NEGATIVE???RSV PCR - NEGATIVE???COVID-19 PCR Specimen Source - NASAL???COVID-19 PCR Result - NEGATIVE Creatinine (05/09/2022) ???Creatinine-Blood - 0.5 mg/dL???Estimated GFR Creatinine - 104 ML/MIN/1.73 M2 D-DIMER (05/07/2022) ???D-Dimer - 1.18 mg/L FEU FERRITIN (05/07/2022) ???Ferritin Level - 9 ng/mL High??Sensitivity??Troponin T (05/07/2022) ???High Sensitivity Troponin (HSTnT) - 27 ng/L Hold Blue Top Tube (05/07/2022) ???Hold Blue Top - SPECIMEN DISCARDED AFTER 4 HOURS. IRON & TIBC (05/07/2022) ???Iron Level - 18 mcg/dL???Iron Binding Capacity, Unsaturated - 213 mcg/dL???Iron Binding Capacity, Estimated Total - 231 mcg/dL???% Iron Saturation - 8 % Lytes (05/09/2022) ???Sodium - 138 mmol/L???Potassium - 4.2 mmol/L???Chloride - 105 mmol/L???Bicarbonate Level - 25 mmol/L???Anion Gap - 8 Serum Qualitative (05/07/2022) ??? Serum Qual - NEGATIVE RETICULOCYTE COUNT (05/07/2022) ???Retic Count - 3.4 %???Retic Count Corrected - 1.7 %???Retic Production Index - 0.8 % TOTAL AND DIRECT BILIRUBIN (05/07/2022) ? ?Bilirubin, Total - 0.2 mg/dL? ?Bilirubin, Direct - <0.2 mg/dL? ?Bilirubin, Indirect - Direct bilirubin is less than the measureable limit. Therefore, indirect Type and Screen (05/07/2022) ???Blood Type - O Positive???Antibody Screen - Negative Allergies (NKA means No Known Allergies) Other Food Allergy Problems Active Problems??(9) Achalasia?? Asthma?? Cancer of central portion of left female breast?? Cholecystectomy?? Family history of breast cancer?? H/O: GI Bleed?? History of fundoplication?? Migraine?? Myotomy?? Education Materials Below is the list of Educational Leaflet Providered with your Discharge Instructions. Ferrous Gluconate Oral Tablet?? Valuables and Belongings I fully understand and agree that [facility] accepts no responsibility for all my personal [...] home. ?? No Valuables/Belongings: No valuables/belongings present Review of Valuable and Belonging List: With patient Possessions released to: No medical devices Date for Pt to Sign Valuables/Belongings: 05/08/22 10:05:00 ?? Other Discharge Information ? Pulmonary Rehab [...] are strongly encouraged to quit. Please call [facility] at [phone] or [phone]) or log in to [email or web address] for referrals to smoking cessation programs. ?? The National Suicide Prevention Hotline is available 14/12 if you or someone you know needs to find a reason to keep living. By calling 1-080-103-[employer] (2637) you'll be connected to a skilled, trained counselor at a crisis center in your area. INPATIENT DISCHARGE INSTRUCTIONS SIGNATURE CHRYSTAL GABRIEL Location:[facility] Registration Date and Time:05/07/2022 17:56 EST Primary Care Physician: Luisa GLASER, Genie Timmons, I CHRYSTAL DELAROSA, have received the above patient education materials/instructions and have verbalized understanding. If ambulance or transport services are being used I further acknowledge beinggiven a choice of service. ?? If you need to contact me, please call me at this number: . Patient/Equipment Validation Engineer Name: Patient/Equipment Validation Engineer Signature: Relationship to Patient: Witness Name/Signature: Date: * Aline Jules: PERFORM Event Display: Patient Education Leaflets Authored Date: [id number] Ferrous Gluconate Oral Tablet ?? 54608-58 Ferrous Gluconate Oral Tablet Brands: Ferate, Fergon Uses For anemia. ?? Instructions Take the medicine with food. Sit or stand upright for 10 minutes after taking the medicine. Do not lie down. Keep the medicine at room temperature. Avoid heat and direct light. Drink plenty of water while on this medicine. Do not eat dairy products, antacids or medicines with iron for 1 hour before and 1 hour after taking this medicine. This medicine can reduce the absorption of other medicines. Talk to your doctor or pharmacist aboutthe best times to use this product. It is important that you keep taking each dose of this medicine on time even if you are feeling well. If you forget to take a dose on time, take it as soon as you remember. If it is almost time for thenext dose, do not take the missed dose. Return to your normal dosing schedule. Do not take 2 doses of this medicine at one time. Tell your doctor and pharmacist about all your medicines. Include prescription and jovz-fxf-gjhelcxixumyngoe, vitamins, and herbal medicines. ?? Cautions Tell your doctor and pharmacist if you ever had an allergic reaction to a medicine. Do not use the medication any more than instructed. Tell the doctor or pharmacist if you are , planning to be , or . ?? Side Effects The following is a list of some common side effects from this medicine. Please speak with your doctor about what you should do if you experience these or other side effects. ??? abdominal cramps ??? constipation or diarrhea ??? stomach upset or abdominal pain ??? dark, tarry stool If you have any of the following side effects, you may be getting too much medicine. Please contactyour doctor to let them know about these side effects. ??? vomiting A few people may have an allergic reaction to this medicine. Symptoms can include difficulty breathing, skin rash, itching, swelling, or severe dizziness. If you notice any of these symptoms, seek medical help quickly. ?? Extra Please speak with your doctor, nurse, or pharmacist if you have any questions about this medicine. ?? [email or web address] IMPORTANT NOTE: This document tells you briefly how to take your medicine, but it does not tell youall there is to know about it. Your doctor or pharmacist may give you other documents about your medicine. Please talk to them if you have any questions. Always follow their advice. There is a more complete description of this medicine available in Samoan. Scan this code on your smartphone or tablet or use the web address below. You can also ask your pharmacist for a printout. If you have any questions, please ask your pharmacist. The display and use of this drug information is subject to Terms of Use. Copyright(c) 2021 [employer] ?? The [employer]. All rights reserved. This information is not intended as a substitute for professional medical care. Always follow your healthcare professional's instructions. ?? * [place] , [place] S: Kalia Mo MD: VERIFY Event Display: Result: Authored Date: [id number] US Doppler Ext Lower Venous Right Reason: Pain Tenderness Extremities; Clinical Question(s): Thrombus; Order Comment: 16 -called for pt at 1010am- per RN, pt is getting blood right now and can be taken in 45 minutes- we will try again closer to 11 if possible COMPARISON: Bilateral lower extremity Doppler ultrasound 03/30/2022. IMAGING TECHNIQUE: Ultrasound of the veins from the groin through the calf was performed using grayscale, color, and spectral Doppler ultrasound assessing for complete compressibility and normal flowcharacteristics. FINDINGS: Common femoral vein: Patent. No thrombosis. Femoral vein: Patent. No thrombosis. Popliteal vein: Patent. No thrombosis. Gastrocnemius veins: The visualized portions are patent without evidence of thrombosis. Peroneal veins: The visualized portions are patent without evidence of thrombosis. Posterior tibial veins: The visualized portions are patent without evidence of thrombosis. Contralateral common femoral vein: Patent. No thrombosis. OTHER FINDINGS: There is diffuse calf edema. IMPRESSION: No evidence of deep venous thrombosis. WSN: [id number] Ordering Physician: Nancy Hurley Dictated By: Kalia Ng MD Dictated Date/Time: 05/08/22 3:58 pm Reviewed By: Kalia Ng MD Signed By: Kalia Ng MD Signed Date/Time: 05/08/22 3:58 pm Transcribed By: NORMA Transcribed Date/Time: 05/08/22 3:56 pm * [place] , [place] S: Thai Ramsay MD: VERIFY Event Display: Result: Authored Date: [id number] Chest 2 Views Frontal and Lat Hx of Present Illness: diarrhea dizziness, I am dehydrated , able to tolerate PO intake, for a fewdays feeling weakness and fatigue. Shortness of breath on exertion without chest pain. Surgery in oct for breast CA. undergiong txt for breast CA. started CA RX x1 mon; Reason: Other:; Chest Pain; Clinical Question(s): Other: COMPARISON: 06/06/2015 FINDINGS: LINES AND TUBES: None. LUNGS AND PLEURA: No acute infiltrate. Normal pulmonary vascularity. Small pleural effusions bilaterally. Minimal bibasilar atelectasis. No pneumothorax. HEART, MEDIASTINUM AND CHAPINCITO: Heart is normal in size. Normal mediastinal and hilar contour. BONES AND SOFT TISSUES: No acute abnormality. IMPRESSION: No acute infiltrate. Mild bibasilar pleural-parenchymal disease, new since prior study. WSN: [id number] Ordering Physician: Joselyn Harrison Dictated By: Thai Chavez MD Dictated Date/Time: 05/07/22 3:10 pm Reviewed By: Thai Chavez MD Signed By: Thai Chavez MD Signed Date/Time: 05/07/22 3:10 pm Transcribed By: NORMA Transcribed Date/Time: 05/07/22 2:55 pm CTA Chest vessels W contrast IV * [facility] , [place] S: TRANSCRIBE Manoj Valles MD B: VERIFY Nika GLASER, Terrence: SIGN Event Display: Result: Authored Date: EXAMINATION: CT Angio Chest INDICATION: Weakness, fatigue, shortness of breath. Currently undergoing breast cancer treatment. Concern for pulmonary embolism. TECHNIQUE: Spiral CTA of the chest was performed after rapid IV contrast administration without cardiac gating, triggered by an LOLITA on the main pulmonary artery. Images are formatted in multiple planes using 2-D multiplanar and 3-D maximum intensity projection. 55 cc of Omnipaque 300 was administered intravenously. This study was performed without oral contrast. Weight-based protocol using automatic tube modulation was used to optimize exposure parameters. CTDIvol Body: 7.20 mGy, DLP Body: 419 mGy*cm. COMPARISONS: 08/26/2011. ANGIOGRAPHIC FINDINGS: No pulmonary embolism to the subsegmental level. Normal caliber pulmonary arteries. No acute aortic abnormality seen on this study performed without cardiac gating. NON-ANGIOGRAPHIC FINDINGS: Regrader View Findings, Lines and Tubes: None. Trachea and Airways: Patent without evidence of tracheal or endobronchial lesion. Lungs and Pleura: Clear lungs. Moderate right and small left pleural effusions with associated atelectasis. Mediastinum and chapincito: No mass or hematoma. No mediastinal or hilar lymphadenopathy. Diffusely dilated esophagus, consistent with achalasia and similar to prior. There is ingested solid and fluid material in the esophagus. Partially imaged thyroid is unremarkable. Heart: Heart is normal in size. No pericardial effusion. 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 Diaphragm and upper abdomen: No significant abnormality. Bones: No acute abnormality. IMPRESSION: No evidence of pulmonary embolism. Moderate right and small left pleural effusions with associated atelectasis. Diffusely dilated esophagus, similar to prior and consistent with achalasia. I have personally reviewed the images and I agree with this report. WSN: [id number] Ordering Physician: Alaina Hoyt Dictated By: Terrence Maher MD Dictated Date/Time: 05/07/22 6:10 pm Reviewed By: Manoj Valles MD Signed By: Manoj Valles MD Signed Date/Time: 05/07/22 6:15 pm Transcribed By: NORMA Transcribed Date/Time: 05/07/22 5:49 pm Patient Care team information Care Team Personnel Name: Genie Moran MD Position: [facility] Outreach Member Role: PCP Address: Address: [address] [place] [address] [address] Genie Moran MD [place], [place] [address] Name: Olive TECHNICAL SERVICE REP, Tana Johnson Position: [facility] PCO Associate Professional Member Role: Primary Care Nurse Address: Address: [address] [place] [address]- Name: Karyn Sweeney RN Position: [facility] SN RN Member Role: Primary Care Nurse Name: Marianna Cruz RN Position: S RN Member Role: Primary Care Nurse Name: Ludwin HUTCHINS Attending Position: [facility] ED Medicine Name: Kailee Posadas RN Position: [facility] ED RN W/OE and Tasks Member Role: Patient Care Provider Name: July West Leisenring Position: [facility] ED TA [facility] Care Team Related Persons Name: RACHELLE HERNANDEZ Address: home [address] [place] [id number] Name: YANCI DELAROSA Address: [place] [address]
--- OUTSIDE RECORDS SUMMARY | 2024-04-15 21:59 | XMS_ITS | Continuity of Care Document ---
Author Organization [facility] Marni niurka Address [address] [place] [address] [address] [place] [address]- Care Team Providers Care Financial Services Professional Name Role Phone Luisa GLASER, Genie Timmons Primary Care Physician [phone] Encounter [facility] Date(s): 09/28/22 - 10/28/22 [facility] [address] [place], [place] [address] Allergies, Adverse Reactions, Alerts Substance Reaction Severity Status Other Food Allergy 1 Active 1sunflower seeds throat swells up Medications anastrozole 1 mg oral tablet 1 tablet, By Mouth, Daily, # 30 tablet, 2 Refills, Maintenance, 10/10/22 10:34:00 EDT, [facility] [address], 164.3, cm, 08/10/22 14:55:00 EDT, Height, 58.3, kg, 08/10/22 14:55:00 EDT, Dry Weight Start Date: 10/10/22 Status: Ordered Carafate Tablet 1 Gm, By Mouth, 3 times a day before meals and bedtime, Maintenance, 06/22/13 16:22:33 Start Date: 06/22/13 Status: Ordered exemestane 25 mg oral tablet 1 tablet, By Mouth, Daily, # 30 tablet, 11 Refills, Maintenance, 09/16/22 9:37:00 EDT, [address] [facility] [address], 164.3, cm, 08/10/22 14:55:00 EDT, Height, 58.3, [...] 11/18/22 14:00:00 EDT, 08/17/22 14:00:00 EDT, Cream, [facility]/pharmacy #[id number], Partial fill upon patient request if the prescription is for a schedule II opioid lon... Start Date: 08/17/22 Stop Date: 11/18/22 Status: Ordered omeprazole 40 mg oral enteric coated capsule 1 capsule = 40 mg, By Mouth, 2 times a day, # 60 capsule, 1 Refills, Maintenance, 05/09/22 9:02:00 EST, Suspension, [facility]/pharmacy #[id number], Partial fill upon patient request [...] [facility] [address] [place] [address]- Name: Tana Schaefer NP Position: [facility] PCO Associate Professional Member Role: Primary Care Nurse Address: Address: [address] [place] [address]- Name: Karyn Sweeney RN Position: [facility] SN RN Member Role: Primary Care Nurse Name: Marianna Cruz RN Position: S RN Member Role: Primary Care Nurse Care Team Related Persons Name: CLAUDINE ELIZABETH Name: RACHELLE HERNANDEZ Address: [address] [address]
--- OUTSIDE RECORDS SUMMARY | 2024-04-15 21:59 | XMS_ITS | Continuity of Care Document ---
Author Organization [facility] Address [address] [place] [address]- Care Team Providers Care Biomass Technician Name Role Phone Luisa GLASER, Genie Timmons Primary Care Physician [id number]/11/23 - 03/13/23 [facility] Care [address] [place] [id number] Allergies, Adverse Reactions, Alerts Substance Reaction Severity [...] Refills, Maintenance, 05/09/22 9:02:00 EST, Suspension, [id number], Partial fill upon patient request if the [...] Team Personnel Name: Genie Moran MD Position: [facility] Outreach Member Role: PCP Address: Address: [address] [place] [address] [address] [place] [address]- Name: Marianna Kinsey RN Position: [facility] RN Member Role: Primary Care Nurse Name: Olive RETAIL TEAM LEADER, Tana Johnson Position: [facility] PCO Associate Professional Member Role: Primary Care Nurse Address: Address: [address] [place] [address]- Name: Karyn Sweeney RN Position: [facility] SN RN Member Role: Primary Care Nurse Care Team Related Persons Name: CLAUDINE ELIZABETH Name: RACHELLE HERNANDEZ Address: [address] [address]
--- OUTSIDE RECORDS SUMMARY | 2024-04-15 21:59 | XMS_ITS | Continuity of Care Document ---
Author Organization [facility] Address [address] [place] [address]- Care Team Providers Care Tie Presser Name Role Phone Genie Moran MD Primary Care Physician [id number] Date(s): 11/05/23 - 01/31/24 [facility] Care [address] [place] [address] Discharge Disposition: A-D/C Home Attending Physician: Placido Wheeler DO Admitting Physician: Placido Wheeler DO Referring Physician: Genie Moran MD Allergies, Adverse [...] tablet, 1 Refills, Maintenance, 07/28/23 13:24:00 EST, [facility], Partial fill upon patient request [...] oldest [Reference Range]: 1 Height 165 cm (12/06/23 11:21 AM) Weight 57.4 kg (12/06/23 11:21 AM) Oxygen Saturation [94-100 %] 96 % (12/06/23 11:21 AM) Pulse Rate [55-90 bpm] 70 bpm (12/06/23 11:21 AM) Body Mass Index [18.5-24.99 kg/m2] 21.08 kg/m2 (12/06/23 11:21 AM) Blood Pressure [90-138/55-84 mm Hg] 149/ 76mm Hg *H* (12/06/23 11:21 AM) Temperature [96.8-100.4 DegF] 96.4 DegF *L* (12/06/23 11:21 AM) Mode of Delivery (Oxygen) Room air (12/06/23 11:21 AM) Blood pressure sites Arm, right (12/06/23 11:21 AM) Temperature Route Oral (12/06/23 11:21 AM) Dry Weight 57.4 kg (12/06/23 11:21 AM) Weight Obtained Via Standing scale (12/06/23 11:21 AM) Dry Weight Obtained Via Standing scale (12/06/23 11:21 AM) Social History Social History Type Response Smoking Status Never smoker entered on: 08/31/13 Sex Patient Care team information Care Team Personnel Name: Genie Moran MD Position: [facility] Outreach Member Role: PCP Address: Address: [address] [place] [address] [address] [place] [address]- Name: Marianna Kinsey RN Position: [facility] RN Member Role: Primary Care Nurse Name: Esther Blackburn RN Position: [facility] RN Member Role: Primary Care Nurse Name: Tana Schaefer NP Position: [facility] PCO Associate Professional Member Role: Primary Care Nurse Address: Address: [address] [place] [address]- Name: Karyn Sweeney RN Position: [facility] SN RN Member Role: Primary Care Nurse Name: Matheus Nieves RN Position: S RN Member Role: Primary Care Nurse Care Team Related Persons Name: CLAUDINE ELIZABETH Address: home [address] [place] [address] Name: RACHELLE DELAROSA Address: home [address] [place] [address]
--- OUTSIDE RECORDS SUMMARY | 2024-04-15 21:59 | XMS_ITS | Continuity of Care Document ---
Author Organization [facility] As counts include 234 beds at the [facility] Address [address] [place] [address] Dr [address] [place] [address]- Care Team Providers Care Driller Portable Name Role Phone Luisa GLASER, Genie Timmons Primary Care Physician [phone] Encounter [facility] R [id number] Date(s): 04/26/23 - 05/26/[address] [place] [address]- Attending Physician: AdmIra gonzalez Admitting Physician: Admtr, Ar8 Referring Physician: Admtr, [...] Team Personnel Name: Genie Moran MD Position: [facility] Outreach Member Role: PCP Address: Address: [address] [place] [address]- Name: Marianna Kinsey RN Position: [facility] RN Member Role: Primary Care Nurse Name: Tana Schaefer NP Position: [facility] PCO Associate Professional Member Role: Primary Care Nurse Address: Address: [address] [place] [address]- Name: Karyn Sweeney RN Position: [facility] SN RN Member Role: Primary Care Nurse Care Team Related Persons Name: CLAUDINE ELIZABETH Name: RACHELLE HERNANDEZ Address: home [address] [place] [address]
--- OUTSIDE RECORDS SUMMARY | 2024-04-15 21:59 | XMS_ITS | Continuity of Care Document ---
Author Organization [facility] Marni niurka Address [address] [place] [address] [address] [place] [address]- Care Team Providers Care Registered Art Therapist Name Role Phone Luisa GLASER, Genie Timmons Primary Care Physician Encounter [facility] R [id number] Date(s): 10/25/23 - 11/01/23 [facility] [address] [address]- Attending Physician: Not on Staff, Attending MD [...] tablet, 1 Refills, Maintenance, 07/28/23 13:24:00 EST, [facility], Partial fill upon patient [...] tablet, 3 Refills, Maintenance, 02/11/23 10:41:00 EDT, [facility]/pharmacy#[id number], 164.3, cm, 02/11/23 9:42:00 EDT, Height, 57.7, [...] Refills, Maintenance, 05/09/22 9:02:00 EST, Suspension, [facility]/pharmacy #[id number], Partial fill upon patient [...] oldest [Reference Range]: 1 Height 165 cm (10/25/23 9:44 AM) Weight 60.8 kg (10/25/23 9:44 AM) Body Mass Index [18.5-24.99 kg/m2] 22.33 kg/m2 (10/25/23 9:44 AM) Social History Social History Type Response Smoking Status Never smoker entered on: 08/31/13 Sex Patient Care team information Care Team Personnel Name: Genie Moran MD Position: [facility] Outreach Member Role: PCP Address: Address: [address] [place] [address]- Name: Marianna Kinsey RN Position: [facility] RN Member Role: Primary Care Nurse Name: Esther Blackburn RN Position: [facility] RN Member Role: Primary Care Nurse Name: Olive SALES AND MARKETING INTERNTana Position: [facility] PCO Associate Professional Member Role: Primary Care Nurse Address: Address: [address] [place] [address]- [place] Name: Karyn Sweeney RN Position: [facility] SN RN Member Role: Primary Care Nurse Name: Matheus Nieves RN Position: [facility] RN Member Role: Primary Care Nurse Care Team Related Persons Name: CLAUDINE ELIZABETH Address: [address] [place] [address] Name: RACHELLE DELAROSA Address: home [address] [place] [address]
--- OUTSIDE RECORDS SUMMARY | 2024-04-15 21:59 | XMS_ITS | Continuity of Care Document ---
Author Organization [facility] Address [address] [place] [address] [address] [place] [address]- Care Team Providers Care Sand Slinger Name Role Phone Luisa GLASER, Genie Timmons Primary Care Physician Encounter [facility] [place] Date(s): 03/29/24 - 04/05/[address] [place] [address]- Attending Physician: Buck Devlin MD Referring Physician: Genie Moran MD Encounter Type: Office Visit Allergies, Adverse Reactions, Alerts Substance Criticality Severity Reaction Reaction Severity Status Other Food Allergy 1 Active 1sunflower seeds throat swells up Medications 1.5kcal/mL oral supplement TID vanilla 1.5kcal/mL oral supplement TID vanilla, See Instructions, # 1 each, Refills 0, Tot. Refills 0, Maintenance, E44.1- Mild protein-energy malnutrition, 07/28/23 1:23:00 PM EST, Supply Start Date: 07/28/23 Status: Ordered Quantity: 1.0 Unit: each Repeat number: 1 ABC Complete Multiple Vitamins with Minerals oral tablet 1 tablet, By Mouth, Daily, # 30 tablet, 1 Refills, Maintenance, 07/28/23 1:24:00 PM EST, [facility], Partial fill upon patient request if the prescription is for a schedule II opioid drug., 1 tablet By Mouth Daily, 164.3, cm, 05/12/23 10:34:00 EST, Height, 61.3, kg, 05/12/23 10:34:00 EST, Dry Weight Start Date: 07/28/23 Status: Ordered Quantity: 30.0 Unit: tablet Repeat number: 2 Albuterol (Eqv-Ventolin HFA) 90 mcg/inh inhalation aerosol 2 puffs, Inhalation, Every 4 hours, PRN Wheezing/Shortness of Breath, 0 Refills, Maintenance, 07/26/23 6:41:00 PM EST, Partial fill upon patient request if the prescription is for a schedule II opioid drug. Start Date: 07/26/23 Status: Ordered Repeat number: 1 anastrozole 1 mg oral tablet 1 tablet = 1 mg, By Mouth, Daily, # 30 tablet, 5 Refills, Maintenance, 01/04/24 11:52:00 AM EDT, Tablet, [facility]/pharmacy #[id number], Partial fill upon patient request if the prescription is for a schedule II opioid drug., 165, cm, 12/06/23 11:21:00 EDT, Height, 57.4, kg, 12/06/23 11:21:00 EDT, Dry Weight Start Date: 01/04/24 Status: Ordered Quantity: 30.0 Unit: tablet Repeat number: 6 Carafate Tablet 1 Gm, By Mouth, 3 times a day before meals and bedtime, Maintenance, 06/22/13 4:22:33 PM EST Start Date: 06/22/13 Status: Ordered Repeat number: 1 exemestane 25 mg oral tablet 1 tablet, By Mouth, Daily, # 90 tablet, 3 Refills, Maintenance, 02/11/23 10:41:00 AM EDT, [id number], 164.3, cm, 02/11/23 9:42:00 EDT, Height, 57.7, kg, 02/11/23 9:42:00 EDT, Dry Weight Start Date: 02/11/23 Status: Ordered Quantity: 90.0 Unit: tablet Repeat number: 4 ferrous fumarate 300 mg oral tablet 1 tablet = 300 mg, By Mouth, Every Wednesday, and Wednesday, # 30 tablet, 0 Refills, Maintenance, 05/09/22 9:00:00 AM EST, Tablet, Partial fill upon patient request if the prescription is for aschedule II opioid drug. Start Date: 05/09/22 Status: Ordered Quantity: 30.0 Unit: tablet Repeat number: 1 omeprazole 40 mg oral enteric coated capsule 1 capsule = 40 mg, By Mouth, 2 times a day, # 60 capsule, 1 Refills, Maintenance, 05/09/22 9:02:00 AM EST, Suspension, [facility]/pharmacy #[id number], Partial fill upon patient request if the prescription is fora schedule II opioid drug., 164.3, cm, 04/30/22 11:20:00 EST, Height, 62.2, kg, 04/30/22 11:20:00 EST, Dry Weight Start Date: 05/09/22 Status: Ordered Quantity: 60.0 Unit: capsule Repeat number: 2 Problem List Condition Confirmation Course Effective Dates [...] oldest [Reference Range]: 1 Height 165 cm (03/29/24 9:50 AM) Weight 58.2 kg (03/29/24 9:50 AM) Pulse Rate [55-90 bpm] 80 bpm (03/29/24 9:50 AM) Body Mass Index [18.5-24.99 kg/m2] 21.38 kg/m2 (03/29/24 9:50 AM) Blood Pressure [90-138/55-84 mm Hg] 122/ 79mm Hg (03/29/24 9:50 AM) Temperature [96.8-100.4 DegF] 98.9 DegF (03/29/24 9:50 AM) Blood pressure sites Arm, right (03/29/24 9:50 AM) Temperature Route Temporal (03/29/24 9:50 AM) Social History Social History Type Response Smoking Status Never smoker entered on: 08/31/13 Sex Sex Representation Female (finding) Patient Care team information Care Team Personnel Name: Genie Moran MD Position: S Outreach Member Role: PCP Address: [address] [place] [address]- Telecom: Name: Marianna Kinsey RN Position: [facility] RN Member Role: Primary Care Nurse Name: Esther Blackburn RN Position: [facility] RN Member Role: Primary Care Nurse Name: Tana Schaefer NP Position: [facility] PCO Associate Professional Member Role: Primary Care Nurse Address: [address] [place] [address] Telecom: Name: Karyn Sweeney RN Position: [facility] SN RN Member Role: Primary Care Nurse Name: Matheus Nieves RN Position: [facility] RN Member Role: Primary Care Nurse Care Team Related Persons Name: CLAUDINE ELIZABETH Name: RACHELLE DELAROSA Insurance Providers Guarantor name: NADYA DELAROSA Health Plan Information #: 1 Payer: NA Member Number: [id number] Policy Number: NA Group Number: [employer] Health Plan Information #: 2 Payer: MEDICARE PART B OUTPT Member Number: [id number] Policy Number: NA Group Number: NA Health Plan Information #: 3 Payer: [facility] Member Number: [id number] Policy Number: NA Group Number: NA
--- OUTSIDE RECORDS SUMMARY | 2024-04-15 21:59 | XMS_ITS | Continuity of Care Document ---
Author Organization [facility] Address [address] [place] [address] [address] [place] [address]- Care Team Providers Care Brush Loader And Handle Attacher Name Role Phone Genie Moran MD Primary Care Physician [phone] [place] [facility] [place] Date(s): 02/12/22 - 02/19/22 [facility] [address] [place], [place] [address] Attending Physician: Jorge Staples MD Referring Physician: Genie Moran MD Allergies, [...] Soft Stop, 01/13/22 11:08:00 EDT, Cream, [id number], Partial fill upon patient request if the [...] recent to oldest [Reference Range]: 1 Height 168 cm (02/12/22 10:49 AM) Social History Social History Type Response Smoking Status Never smoker entered on: 08/31/13 Sex Patient Care team information Personnel Name: Genie Moran MD Address: Address: [address] [place] [address] [address] [place] [address]
--- OUTSIDE RECORDS SUMMARY | 2024-04-15 21:59 | XMS_ITS | Continuity of Care Document ---
Author Organization [facility] Address [address] [place] [address] [address] [place] [address]- Care Team Providers Care Cloth Washer Back Tender Name Role Phone Luisa GLASER, Genie Timmons Primary Care Physician [place] [facility] [id number] Date(s): 04/06/23 - 05/26/[address] [place] [address]- Attending Physician: Claus GLASER, Buck Allergies, Adverse Reactions, Alerts Substance Reaction Severity Status Other Food Allergy 1 Active 1sunflower seeds throat swells up Medications Carafate Tablet 1 Gm, By Mouth, 3 times a day before meals and bedtime, Maintenance, 06/22/13 16:22:33 Start Date: 06/22/13 Status: Ordered exemestane 25 mg oral tablet 1 tablet, By Mouth, Daily, # 90 tablet, 3 Refills, Maintenance, 02/11/23 10:41:00 EDT, [id number], 164.3, cm, 02/11/23 9:42:00 EDT, Height, 57.7, [...] Refills, Maintenance, 05/09/22 9:02:00 EST, Suspension, [id number], Partial fill upon patient request if the [...] Team Personnel Name: Genie Moran MD Position: [facility] Outreach Member Role: PCP Address: Address: [address] [place] [address]- Name: Marianna Kinsey RN Position: [facility] RN Member Role: Primary Care Nurse Name: Tana Schaefer NP Position: [facility] PCO Associate Professional Member Role: Primary Care Nurse Address: Address: [address] [place] [address]- Name: Karyn Sweeney RN Position: [facility] SN RN Member Role: Primary Care Nurse Care Team Related Persons Name: CLAUDINE ELIZABETH Name: RACHELLE HERNANDEZ Address: home [address] [place] [address]
--- OUTSIDE RECORDS SUMMARY | 2024-04-15 21:59 | XMS_ITS | Continuity of Care Document ---
Author Organization [facility] Address [address] [place] [address] D[address] [place] [address]- Care Team Providers Care Conference Center Coordinator Name Role Phone Luisa GLASER, Genie Timmons Primary Care Physician [id number]27[facility] - 12/04/22 [facility] [address] [place] [address]- Attending Physician: Jorge Staples MD Allergies, Adverse Reactions, Alerts Substance Reaction Severity Status Other Food Allergy 1 Active 1sunflower seeds throat swells up Medications anastrozole 1 mg oral tablet 1 tablet, By Mouth, Daily, # 30 tablet, 2 Refills, Maintenance, 10/10/22 10:34:00 EDT, [id number], 164.3, cm, 08/10/22 14:55:00 EDT, Height, 58.3, kg, 08/10/22 14:55:00 EDT, Dry Weight Start Date: 10/10/22 Status: Ordered Carafate Tablet 1 Gm, By Mouth, 3 times a day before meals and bedtime, Maintenance, 06/22/13 16:22:33 Start Date: 06/22/13 Status: Ordered exemestane 25 mg oral tablet 1 tablet, By Mouth, Daily, # 30 tablet, 11 Refills, Maintenance, 09/16/22 9:37:00 EDT, [id number], 164.3, cm, 08/10/22 14:55:00 EDT, Height, 58.3, [...] oldest [Reference Range]: 1 Height 164.3 cm (11/27/22 2:50 PM) Weight 58 kg (11/27/22 2:50 PM) Body Mass Index [18.5-24.99 kg/m2] 21.49 kg/m2 (11/27/22 2:50 PM) Social History Social History Type Response Smoking Status Never smoker entered on: 08/31/13 Sex Patient Care team information Care Team Personnel Name: Genie Moran MD Position: [facility] Outreach Member Role: PCP Address: Address: [address] [place] [address]- Name: Tana Schaefer NP Position: [facility] PCO Associate Professional Member Role: Primary Care Nurse Address: Address: [address] [place] [address]- Name: Karyn Sweeney RN Position: [facility] SN RN Member Role: Primary Care Nurse Name: Marianna Cruz RN Position: [facility] RN Member Role: Primary Care Nurse Care Team Related Persons Name: CLAUDINE ELIZABETH Name: RACHELLE HERNANDEZ Address: [address] [address]
--- OUTSIDE RECORDS SUMMARY | 2024-04-15 21:59 | XMS_ITS | Continuity of Care Document ---
Author Organization [facility] Address [address] [place] [address] [address] [place] [address]- Care Team Providers Care Pastry Cook Name Role Phone Genie Moran MD Primary Care Physician [phone] Encounter [facility] [place] Date(s): 03/30/22 - 04/29/22 [facility] [address] [place] [address]- Allergies, Adverse Reactions, Alerts Substance Reaction Severity [...] Team Personnel Name: Genie Moran MD Position: [facility] Outreach Member Role: PCP Address: Address: [address] [place] [address]- Name: Tana Schaefer NP Position: [facility] PCO Associate Professional Member Role: Primary Care Nurse Address: Address: [address] [place] [address]- Name: Karyn Sweeney RN Position: [facility] SN RN Member Role: Primary Care Nurse Name: Marianna Cruz RN Position: [facility] RN Member Role: Primary Care Nurse Care Team Related Persons Name: RACHELLE HERNANDEZ Address: home [address] [place] [address] Name: YANCI DELAROSA Address: [place] [address]
--- OUTSIDE RECORDS SUMMARY | 2024-04-15 21:59 | XMS_ITS | Continuity of Care Document ---
Author Organization [facility] Address [address] [place] [address]- Care Team Providers Care Aoc Director Intelligence Officer Name Role Phone Genie Moran MD Primary Care Physician En[place] [facility] [place] Date(s): 01/31/24 - 02/07/24 [facility] [address] [facility] [address] [place], [place] [address] Attending Physician: Buck Devlin MD Referring Physician: Genie Moran MD Allergies, [...] tablet, 1 Refills, Maintenance, 07/28/23 13:24:00 EST, [facility], Partial fill upon patient [...] oldest [Reference Range]: 1 Height 165 cm (01/31/24 10:42 AM) Weight 57.6 kg (01/31/24 10:42 AM) Pulse Rate [55-90 bpm] 69 bpm (01/31/24 10:42 AM) Body Mass Index [18.5-24.99 kg/m2] 21.16 kg/m2 (01/31/24 10:42 AM) Blood Pressure [90-138/55-84 mm Hg] 153/ 85mm Hg *H* (01/31/24 10:42 AM) Blood pressure sites Arm, left (01/31/24 10:42 AM) Dry Weight 57.6 kg (01/31/24 10:42 AM) Social History Social History Type Response Smoking Status Never smoker entered on: 08/31/13 Sex Patient Care team information Care Team Personnel Name: Genie Moran MD Position: [facility] Outreach Member Role: PCP Address: Address: [address] [place] [address] [address] [place] [address]- Name: Marianna Kinsey RN Position: [facility] RN Member Role: Primary Care Nurse Name: Esther Blackburn RN Position: [facility] RN Member Role: Primary Care Nurse Name: Tana Schaefer NP Position: [facility] PCO Associate Professional Member Role: Primary Care Nurse Address: Address: [address] [place] [address]- Name: Karyn Sweeney RN Position: [facility] SN RN Member Role: Primary Care Nurse Name: Matheus Nieves RN Position: [facility] RN Member Role: Primary Care Nurse Care Team Related Persons Name: CLAUDINE ELIZABETH Address: home [address] [place] [address] Name: RACHELLE DELAROSA Address: [address] [place] [address]
--- OUTSIDE RECORDS SUMMARY | 2024-04-15 21:59 | XMS_ITS | Continuity of Care Document ---
Author Organization [facility] Address [address] [place] [address]- Care Team Providers Care Foreclosure Specialist Name Role Phone Genie Moran MD Primary Care Physician Encounter [facility] [place] Date(s): 12/30/21 - 01/29/22 [facility] [address] [facility] [address]- Allergies, Adverse Reactions, Alerts Substance Reaction Severity [...] Soft Stop, 01/13/22 11:08:00 EDT, Cream, [id number], Partial fill upon patient request if the [...] ant Achalasia(Confirmed) Active Asthma(Confirmed) Active Cholecystectomy(Confirmed) Active Family history of breast cancer(Confirmed) Active H/O: GI Bleed(Confirmed) Active History of fundoplication(Confirmed) Active Cancer of central portion of left female breast(Confirmed) 11/2021 Active Migraine(Confirmed) Active Myotomy(Confirmed) Active Social History Social History Type Response Smoking Status Never smoker entered on: 08/31/13 Sex Care Team Personnel Name: Genie Moran MD Address: [address] [place] [address] [address] Genie Moran MD [place], [place] [address]
--- OUTSIDE RECORDS SUMMARY | 2024-04-15 21:59 | XMS_ITS | Continuity of Care Document ---
Author Organization [facility] Address [address] [place] [address] [address] [place] [address]- Care Team Providers Care Nurse First Aid Name Role Phone Genie Moran MD Primary Care Physician [place] [facility] [place] 04/27/22 [facility] [address] [place], [place] [address] Attending Physician: Mariama Serrato Allergies, Adverse [...] oldest [Reference Range]: 1 Height 163 cm (04/20/22 10:03 AM) Weight 69.3 kg (04/20/22 10:03 AM) Body Mass Index [18.5-24.99 kg/m2] 26.08 kg/m2 *H* (04/20/22 10:03 AM) Temperature [96.8-100.4 DegF] 98.5 DegF (04/20/22 10:03 AM) Temperature Route Temporal (04/20/22 10:03 AM) Weight Obtained Via Standing scale (04/20/22 10:03 AM) Social History Social History Type Response Smoking Status Never smoker entered on: 08/31/13 Sex Patient Care team information Care Team Personnel Name: Genie Moran MD Position: [facility] Outreach Member Role: PCP Address: Address: [address] [place] [address] [address] [place] [address]- Name: Tana Schaefer NP Position: [facility] PCO Associate Professional Member Role: Primary Care Nurse Address: Address: [address] [place] [address]- Name: Karyn Sweeney RN Position: [facility] SN RN Member Role: Primary Care Nurse Name: Marianna Cruz RN Position: [facility] RN Member Role: Primary Care Nurse Care Team Related Persons Name: RACHELLE HERNANDEZ Address: home [address] [place] [address] Name: YANCI DELAROSA Address: [place] [address]
--- OUTSIDE RECORDS SUMMARY | 2024-04-15 21:59 | XMS_ITS | Continuity of Care Document ---
Author Organization [facility] Address [address] [place] [address] [facility] [address] [place] [address]- Care Team Providers Care Segment Producer Name Role Phone Genie Moran MD Primary Care Physician En[place] [facility] [place] Date(s): 11/23/23 - 12/23/23 [facility] [address] [address] Attending Physician: Admtr, Ar8 Admitting Physician: Admtr, Ar8 Referring Physician: Admtr, [...] tablet, 1 Refills, Maintenance, 07/28/23 13:24:00 EST, [facility], Partial fill upon patient request [...] tablet, 3 Refills, Maintenance, 02/11/23 10:41:00 EDT, [facility][id number], 164.3, cm, 02/11/23 9:42:00 EDT, Height, [...] Team Personnel Name: Genie Moran MD Position: [facility] Outreach Member Role: PCP Address: Address: [address] [place] [address] [address] [place] [address]- [place] Name: Tio MANJARREZ, Marianna Position: [facility] RN Member Role: Primary Care Nurse Name: Esther Blackburn RN Position: [facility] RN Member Role: Primary Care Nurse Name: Olive ACCOUNT ADJUSTERTana Position: [facility] PCO Associate Professional Member Role: Primary Care Nurse Address: Address: [address] [place] [address]- Name: Karyn Sweeney RN Position: [facility] SN RN Member Role: Primary Care Nurse Name: Matheus Nieves RN Position: [facility] RN Member Role: Primary Care Nurse Care Team Related Persons Name: CLAUDINE ELIZABETH Address: [address] [place] [address] Name: RACHELLE DELAROSA Address: [address] [place] [address]
--- OUTSIDE RECORDS SUMMARY | 2024-04-15 21:59 | XMS_ITS | Continuity of Care Document ---
Author Organization [facility] Address [address] [place] [address] [address] [place] [address]- Care Team Providers Care Trimming Press Operator Name Role Phone Luisa GLASER, Genie Timmons Primary Care Physician [phone] Encounter [facility] [place] Date(s): 09/27/23 - 10/04/23 [facility] [address] [address] Attending Physician: Not on Staff, Attending MD [...] tablet, 1 Refills, Maintenance, 07/28/23 13:24:00 EST, [facility], Partial fill upon patient [...] tablet, 3 Refills, Maintenance, 02/11/23 10:41:00 EDT, [facility]/pharmacy#0693, 164.3, cm, 02/11/23 9:42:00 EDT, Height, 57.7, [...] 1 Refills, Maintenance, 05/09/22 9:02:00 EST, Suspension, [facility]/pharmacy #[id number], Partial fill upon [...] oldest [Reference Range]: 1 Height 165 cm (09/27/23 8:56 AM) Weight 59.9 kg (09/27/23 8:56 AM) Body Mass Index [18.5-24.99 kg/m2] 22 kg /m2 (09/27/23 8:56 AM) Social History Social History Type Response Smoking Status Never smoker entered on: 08/31/13 Sex Patient Care team information Care Team Personnel Name: Genie Moran MD Position: [facility] Outreach Member Role: PCP Address: Address: [address] [place] [address]- [place] Name: Marianna Kinsey RN Position: [facility] RN Member Role: Primary Care Nurse Name: Esther Blackburn RN Position: S RN Member Role: Primary Care Nurse Name: Olive PUBLIC SERVICE DIRECTORTana Position: [facility] PCO Associate Professional Member Role: Primary Care Nurse Address: Address: [address] [place] [address]- [place] Name: Karyn Sweeney RN Position: [facility] SN RN Member Role: Primary Care Nurse Name: Matheus Nieves RN Position: [facility] RN Member Role: Primary Care Nurse Care Team Related Persons Name: CLAUDINE ELIZABETH Address: [address] [place] [address] Name: RACHELLE DELAROSA Address: home [address] [place] [address]
--- OUTSIDE RECORDS SUMMARY | 2024-04-15 21:59 | XMS_ITS | Continuity of Care Document ---
Author Organization [facility] Care Address [address] [place] [address]- Care Team Providers Care Store Director Name Role Phone Luisa GLASER, Genie Timmons Primary Care Physician Encounter [facility] Date(s): 05/10/23 - 07/12/23 [facility] [address] [place] [address]- Encounter Diagnosis Malignant neoplasm of overlapping sites of left breast in female, estrogen receptor positive(Discharge Diagnosis) - 05/12/23 Discharge Disposition: A-D/C Home Attending Physician: Placido [...] tablet, 3 Refills, Maintenance, 02/11/23 10:41:00 EDT, [facility]/pharmacy#[id number], 164.3, cm, 02/11/23 9:42:00 EDT, Height, [...] 1 Refills, Maintenance, 05/09/22 9:02:00 EST, Suspension, [facility]/pharmacy #[id number], Partial fill upon patient request [...] in female, estrogen receptor positive Confirmed Active Diagnosis Diagnosis Type Effective Dates Health Status Clinical Service Informant Malignant neoplasm of overlapping sites of left breast in female, estrogen receptor positive Discharge Diagnosis 05/12/23 Vital Signs Most recent to oldest [Reference Range]: 1 Height 164.3 cm (05/12/23 10:34 AM) Weight 61.3 kg (05/12/23 10:34 AM) Oxygen Saturation [94-100 %] 100 % (05/12/23 10:34 AM) Pulse Rate [55-90 bpm] 73 bpm (05/12/23 10:34 AM) Body Mass Index [18.5-24.99 kg/m2] 22.71 kg/m2 (05/12/23 10:34 AM) Blood Pressure [90-138/55-84 mm Hg] 125/ 69mm Hg (05/12/23 10:34 AM) Temperature [96.8-100.4 DegF] 97.4 DegF (05/12/23 10:34 AM) Mode of Delivery (Oxygen) Room air (05/12/23 10:34 AM) Blood pressure sites Arm, right (05/12/23 10:34 AM) Temperature Route Oral (12/20/23 10:34 AM) Dry Weight 61.3 kg (05/12/23 10:34 AM) Weight Obtained Via Standing scale (05/12/23 10:34 AM) Dry Weight Obtained Via Standing scale (05/12/23 10:34 AM) Social History Social History Type Response Smoking Status Never smoker entered on: 08/31/13 Sex Patient Care team information Care Team Personnel Name: Genie Moran MD Position: [facility] Outreach Member Role: PCP Address: Address: [address] [place] [address]- Name: Marianna Kinsey RN Position: [facility] RN Member Role: Primary Care Nurse Name: Tana Schaefer NP Position: [facility] PCO Associate Professional Member Role: Primary Care Nurse Address: Address: [address] [place] [address]- Name: Karyn Sweeney RN Position: [facility] SN RN Member Role: Primary Care Nurse Care Team Related Persons Name: CLAUDINE ELIZABETH Name: RACHELLE HERNANDEZ Address: home [address] [place] [address]
--- OUTSIDE RECORDS SUMMARY | 2024-04-15 21:59 | XMS_ITS | Continuity of Care Document ---
Author Organization [facility] Address [address] [place] [address]- Care Team Providers Care Director Of Special Services Name Role Phone Luisa GLASER, Genie Timmons Primary Care Physician [id number] Date(s[facility] 12/06/23 - 01/05/24 [facility] [address] [place] [address] Allergies, Adverse Reactions, Alerts Substance Reaction [...] tablet, 1 Refills, Maintenance, 07/28/23 13:24:00 EST, [facility], Partial fill upon patient [...] Team Personnel Name: Genie Moran MD Position: [facility] Outreach Member Role: PCP Address: Address: [address] [place] [address]- Name: Marianna Kinsey RN Position: [facility] RN Member Role: Primary Care Nurse Name: Esther Blackburn RN Position: [facility] RN Member Role: Primary Care Nurse Name: Tana Schaefer NP Position: [facility] PCO Associate Professional Member Role: Primary Care Nurse Address: Address: [address] [place] [address]- [place] Name: Karyn Sweeney RN Position: [facility] SN RN Member Role: Primary Care Nurse Name: Matheus Nieves RN Position: [facility] RN Member Role: Primary Care Nurse Care Team Related Persons Name: CLAUDINE ELIZABETH Address: home [address] [place] [address] Name: RACHELLE DELAROSA Address: home [address] [place] [address]
--- OUTSIDE RECORDS SUMMARY | 2024-04-15 21:59 | XMS_ITS | Continuity of Care Document ---
Author Organization [facility] Address [address] [place] [address] Dr [address] [place] [address]- Care Team Providers Care B2B Sales Professional Name Role Phone Luisa GLASER, Genie Timmons Primary Care Physician Encounter [facility] R [id number] Date(s): 03/03/23 - 04/02/[address] [place] [address]- Attending Physician: Ira Weiss Admitting Physician: AdmtrIra [...] tablet, 3 Refills, Maintenance, 02/11/23 10:41:00 EDT, [facility]/pharmacy#[id number], 164.3, cm, 02/11/23 9:42:00 EDT, [...] Team Personnel Name: Genie Moran MD Position: [facility] Outreach Member Role: PCP Address: Address: [address] [place] [address]- Name: Marianna Kinsey RN Position: [facility] RN Member Role: Primary Care Nurse Name: Tana Schaefer NP Position: [facility] PCO Associate Professional Member Role: Primary Care Nurse Address: Address: [address] [place] [address]- Name: Karyn Sweeney RN Position: [facility] SN RN Member Role: Primary Care Nurse Care Team Related Persons Name: CLAUDINE ELIZABETH Name: RACHELLE HERNANDEZ Address: home [address] [place] [address]
--- OUTSIDE RECORDS SUMMARY | 2024-04-15 21:59 | XMS_ITS | Continuity of Care Document ---
Author Organization [facility] [place] [facility] Address [address] [place] [address] [address] [place] [address]- Care Team Providers Care Baseball Inspector Name Role Phone Genie Moran MD Primary Care Physician Encounter [facility] Date(s): 01/27/22 - 02/03/22 [facility] [address] [place], [place] [address] Attending Physician: Jorge Staples MD Allergies, [...] Soft Stop, 01/13/22 11:08:00 EDT, Cream, [id number], Partial fill upon patient request if the [...] breast(Confirmed) 11/2021 Active Migraine(Confirmed) Active Myotomy(Confirmed) Active Vital Signs Most recent to oldest [Reference Range]: 1 Height 168 cm (01/27/22 2:39 PM) Social History Social History Type Response Smoking Status Never smoker entered on: 08/31/13 Sex Care Team Personnel Name: Genie Moran MD Address: [address] [place] [address] [address] [place] [address]
--- OUTSIDE RECORDS SUMMARY | 2024-04-15 21:59 | XMS_ITS | Continuity of Care Document ---
Author Organization [facility] Address [address] [place] [address] [address] [place] [address]- Care Team Providers Care Shaping Machine Tender Name Role Phone Luisa GLASER, Genie Timmons Primary Care Physician En[place] [facility] [place] [id number] Date(s): 03/03/23 - 03/10/[address] [place] [address]- Attending Physician: Claus GLASER, Buck Referring Physician: Genie Moran MD Allergies, Adverse [...] Refills, Maintenance, 05/09/22 9:02:00 EST, Susp[facility], [id number], Partial fill upon patient request if the [...] Team Personnel Name: Genie Moran MD Position: [facility] Outreach Member Role: PCP Address: Address: [address] [place] [address] [address] [place] [address]- Name: Marianna Kinsey RN Position: [facility] RN Member Role: Primary Care Nurse Name: Tana Schaefer NP Position: [facility] PCO Associate Professional Member Role: Primary Care Nurse Address: Address: [address] [place] [address]- Name: Karyn Sweeney RN Position: [facility] SN RN Member Role: Primary Care Nurse Care Team Related Persons Name: CLAUDINE ELIZABETH Name: RACHELLE HERNANDEZ Address: home [address] [place] [address]
--- OUTSIDE RECORDS SUMMARY | 2024-04-15 21:59 | XMS_ITS | Continuity of Care Document ---
Author Organization [facility] Address [address] [place] [address] [address], [address] [place] [address]- Care Team Providers Care Sweat Band Sewer Name Role Phone Luisa GLASER, Genie Timmons Primary Care Physician Encounter [facility] Date(s): 11/01/20 - 12/01/20 [facility] [address] [place] [address] Drive, [address] [place], [place] [address] Attending Physician: Ira Weiss Admitting Physician: Ira [...]
--- OUTSIDE RECORDS SUMMARY | 2024-04-15 21:59 | XMS_ITS | Continuity of Care Document ---
Author Organization [facility] Address [address] [place] [address] [address] [place] [address]- Care Team Providers Care Solid Center Winder Name Role Phone Genie Moran MD Primary Care Physician Encounter [facility] Date(s): 02/01/23 - 03/03/[address] [place], [place] [address] Attending Physician: AdmIra gonzalez Admitting Physician: AdmtrIra Referring Physician: Admtr, Ar8 [...] [facility] [address] [place] [address]- Name: Marianna Kinsey RN Position: [facility] RN Member Role: Primary Care Nurse Name: Tana Schaefer NP Position: [facility] PCO Associate Professional Member Role: Primary Care Nurse Address: Address: [address] [place] [address]- Name: Karyn Sweeney RN Position: [facility] SN RN Member Role: Primary Care Nurse Care Team Related Persons Name: CLAUDINE ELIZABETH Name: RACHELLE HERNANDEZ Address: [address] [address]
--- OUTSIDE RECORDS SUMMARY | 2024-04-15 21:59 | XMS_ITS | Continuity of Care Document ---
Author Organization [facility] ancer Care Address [address] [place] [address]- Care Team Providers Care Fluxer Name Role Phone Luisa GLASER, Genie Timmons Primary Care Physician [phone] [id number] Date(s): 09/21/22 - 10/21/22 [facility] [address] [place] [address]- Attending Physician: Ira Weiss Admitting Physician: Ira Weiss Referring Physician: Ira Weiss Allergies, Adverse Reactions, Alerts Substance Reaction Severity Status Other Food Allergy 1 Active 1sunflower seeds throat swells up Medications anastrozole 1 mg oral tablet 1 tablet, By Mouth, Daily, # 30 tablet, 2 Refills, Maintenance, 10/10/22 10:34:00 EDT, [facility] STORE [id number], 164.3, cm, 08/10/22 14:55:00 EDT, Height, 58.3, kg, 08/10/22 14:55:00 EDT, Dry Weight Start Date: 10/10/22 Status: Ordered Carafate Tablet 1 Gm, By Mouth, 3 times a day before meals and bedtime, Maintenance, 06/22/13 16:22:33 Start Date: 06/22/13 Status: Ordered exemestane 25 mg oral tablet 1 tablet, By Mouth, Daily, # 30 tablet, 11 Refills, Maintenance, 09/16/22 9:37:00 EDT, [facility] STORE [id number], 164.3, cm, 08/10/22 14:55:00 EDT, Height, 58.3, [...] 11/18/22 14:00:00 EDT, 08/17/22 14:00:00 EDT, Cream, [facility]/pharmacy #[id number], Partial fill upon patient request if the prescription is for a schedule II opioid lon... Start Date: 08/17/22 Stop Date: 11/18/22 Status: Ordered omeprazole 40 mg oral enteric coated capsule 1 capsule = 40 mg, By Mouth, 2 times a day, # 60 capsule, 1 Refills, Maintenance, 05/09/22 9:02:00 EST, Suspension, [facility]/pharmacy #[id number], Partial fill upon patient request [...] Team Personnel Name: Genie Moran MD Position: [facility] Outreach Member Role: PCP Address: Address: [address] [place] [address] [address] [place] [address] Name: Tana Schaefer NP Position: [facility] PCO Associate Professional Member Role: Primary Care Nurse Address: Address: [address] [place] [address]- Name: Karyn Sweeney RN Position: [facility] SN RN Member Role: Primary Care Nurse Name: Marianna Cruz RN Position: [facility] RN Member Role: Primary Care Nurse Care Team Related Persons Name: CLAUDINE ELIZABETH Name: RACHELLE HERNANDEZ Address: [address] [address]
--- OUTSIDE RECORDS SUMMARY | 2024-04-15 21:59 | XMS_ITS | Continuity of Care Document ---
Author Organization [facility] [place] Address [address] [place], [place] [address]i ve [address] [place] [address]- Care Team Providers Care Diesel Maintenance Technician Name Role Phone Genie Moran MD Primary Care Physician Encounter [facility] Date(s): 01/09/23 - 05/09/23 [facility] [address] [place], [place] [address] Attending Physician: Jorge Staples MD [...] Refills, Maintenance, 05/09/22 9:02:00 EST, Suspension, [id number], Partial fill upon patient request if the [...] Outreach Member Role: PCP Address: Address: [address] [place] [address]- Name: Marianna Kinsey RN Position: [facility] RN Member Role: Primary Care Nurse Name: Tana Schaefer NP Position: [facility] PCO Associate Professional Member Role: Primary Care Nurse Address: Address: [address] [place] [address]- Name: Karyn Sweeney RN Position: [facility] SN RN Member Role: Primary Care Nurse Care Team Related Persons Name: CLAUDINE ELIZABETH Name: RACHELLE HERNANDEZ Address: home [address] [place] [address]
--- OUTSIDE RECORDS SUMMARY | 2024-04-15 21:59 | XMS_ITS | Continuity of Care Document ---
Author Organization [facility] ancer Care Address [address] [place] [address]- Care Team Providers Care Emerging Solutions Executive Name Role Phone Luisa GLASER, Genie Timmons Primary Care Physician [phone] [place] [facility] [id number] Date(s): 05/10/23 - 06/09/23 [facility] Care [address] [place] [address]- Attending Physician: Ira Weiss Admitting Physician: Admtr, Ira Referring Physician: Admtr, [...] 3 Refills, Maintenance, 02/11/23 10:41:00 EDT, [facility]/pharmacy#[id number], 164.3, cm, 02/11/23 9:42:00 EDT, Height, [...] Outreach Member Role: PCP Address: Address: [address] [place] [address]- Name: Marianna Kinsey RN Position: [facility] RN Member Role: Primary Care Nurse Name: Tana Schaefer NP Position: [facility] PCO Associate Professional Member Role: Primary Care Nurse Address: Address: [address] [place] [address]- Name: Karyn Sweeney RN Position: [facility] SN RN Member Role: Primary Care Nurse Care Team Related Persons Name: CLAUDINE ELIZABETH Name: RACHELLE HERNANDEZ Address: home [address] [place] [address]
--- OUTSIDE RECORDS SUMMARY | 2024-04-15 21:59 | XMS_ITS | Continuity of Care Document ---
Author Organization [facility] Address [address] [place] [address]- Care Team Providers Care Compliance Testing Analyst Name Role Phone Genie Moran MD Primary Care Physician [phone] Encounter [facility] Date(s): 02/11/22 - 03/13/22 [facility] [address] [place] [address]- Attending Physician: Ira Weiss Admitting Physician: Ira [...] 0 Refills, Soft Stop, 01/13/22 11:08:00 EDT, Mariann, [id number], Partial fill upon patient request if the [...] Name: Luisa GLASER, Genie Timmons Address: Address: [address] [place] [address] [address] [place] [address]
--- OUTSIDE RECORDS SUMMARY | 2024-04-15 21:59 | XMS_ITS | Continuity of Care Document ---
Author Organization [facility] ancer Care Address [address] [place] [address]- Care Team Providers Care Biomaterials Engineer Name Role Phone Genie Moran MD Primary Care Physician [facility] Date(s): 01/31/24 - 03/01/24 [facility] Care [address] [place] [address] Attending Physician: Admtr, Ar8 Admitting Physician: Admtr, [...] tablet, 1 Refills, Maintenance, 07/28/23 13:24:00 EST, [facility], Partial fill upon patient [...] Position: S Outreach Member Role: PCP Address: Address: [address] [place] [address]- Name: Marianna Kinsey RN Position: S RN Member Role: Primary Care Nurse Name: Esther Blackburn RN Position: S RN Member Role: Primary Care Nurse Name: Olive SPRING COILER HAND, Tana Johnson Position: [facility] PCO Associate Professional Member Role: Primary Care Nurse Address: Address: [address] [place] [address]- Name: Karyn Sweeney RN Position: [facility] SN RN Member Role: Primary Care Nurse Name: Matheus Nieves RN Position: S RN Member Role: Primary Care Nurse Care Team Related Persons Name: CLAUDINE ELIZABETH Address: [address] [place] [address] Name: RACHELLE DELAROSA Address: home [address] [place] [address]
--- OUTSIDE RECORDS SUMMARY | 2024-04-15 21:59 | XMS_ITS | Continuity of Care Document ---
Author Organization [facility] [place] [facility] Address [address] [place] [address] [address] [place] [address]- Care Team Providers Care Coremaker Machine Name Role Phone Luisa GLASER, Genie Timmons Primary Care Physician Encounter [facility] ACCT R [id number] Date(s): 09/02/23 - 09/09/23 [facility] [address] [address]- Attending Physician: Patrciia Pride Allergies, Adverse Reactions, Alerts Substance Reaction Severity [...] tablet, 1 Refills, Maintenance, 07/28/23 13:24:00 EST, [facility], Partial fill upon patient [...] tablet, 3 Refills, Maintenance, 02/11/23 10:41:00 EDT, [facility]/pharmacy#[id number], 164.3, cm, 02/11/23 9:42:00 EDT, [...] 1 Refills, Maintenance, 05/09/22 9:02:00 EST, Suspension, [facility]/pharmacy #[id number], Partial fill upon patient [...] oldest [Reference Range]: 1 Height 165 cm (09/02/23 10:26 AM) Weight 60.8 kg (09/02/23 10:26 AM) Body Mass Index [18.5-24.99 kg/m2] 22.33 kg/m2 (09/02/23 10:26 AM) Social History Social History Type Response Smoking Status Never smoker entered on: 08/31/13 Sex Patient Care team information Care Team Personnel Name: Genie Moran MD Position: [facility] Outreach Member Role: PCP Address: Address: [address] [place] [address]- [place] Name: Marianna Kinsey RN Position: [facility] RN Member Role: Primary Care Nurse Name: Esther Blackburn RN Position: [facility] RN Member Role: Primary Care Nurse Name: Tana Schaefer NP Position: [facility] PCO Associate Professional Member Role: Primary Care Nurse Address: Address: [address] [place] [address]- [place] Name: Karyn Sweeney RN Position: [facility] SN RN Member Role: Primary Care Nurse Name: Matheus Nieves RN Position: [facility] RN Member Role: Primary Care Nurse Care Team Related Persons Name: CLAUDINE ELIZABETH Address: [address] [place] [address] Name: RACHELLE DELAROSA Address: [address] [place] [address]
--- OUTSIDE RECORDS SUMMARY | 2024-04-15 21:59 | XMS_ITS | Continuity of Care Document ---
Author Organization [facility] Plastic [facility] Address [address] [place] [address] [address] [place] [address]- Care Team Providers Care Estimator And Drafter Name Role Phone Luisa GLASER, Genie Timmons Primary Care Physician Encounter [facility] ACCT R [id number] Date(s): 05/28/22 - 06/04/22 [facility] [address] [place] [address]- Attending Physician: Patricia Pride Allergies, Adverse Reactions, Alerts Substance Reaction [...] Refills, Maintenance, 03/31/22 12:12:00 EST, Tablet, [id number], Partial fill upon patient request if the [...] oldest [Reference Range]: 1 Height 164.3 cm (05/28/22 1:41 PM) Weight 62 kg (05/28/22 1:41 PM) Body Mass Index [18.5-24.99 kg/m2] 22.97 kg/m2 (05/28/22 1:41 PM) Social History Social History Type Response Smoking Status Never smoker entered on: 08/31/13 Sex Patient Care team information Care Team Personnel Name: Gneie Moran MD Position: [facility] Outreach Member Role: PCP Address: Address: [address] [place] [address]- Name: Tana Schaefer NP Position: [facility] PCO Associate Professional Member Role: Primary Care Nurse Address: Address: [address] [place] [address]- Name: Karyn Sweeney RN Position: [facility] SN RN Member Role: Primary Care Nurse Name: Marianna Cruz RN Position: [place] RN Member Role: Primary Care Nurse Care Team Related Persons Name: RACHELLE HERNANDEZ Address: home [address] [place] [address] Name: YANCI DELAROSA Address: [place] [address]
--- OUTSIDE RECORDS SUMMARY | 2024-04-15 22:00 | XMS_ITS | Continuity of Care Document ---
Author Organization [facility] ancer Care Address [address] [place] [address]- Care Team Providers Care Family Program Specialist Name Role Phone Luisa GLASER, Genie Timmons Primary Care Physician [phone] [facility] [place] 07/08/22 - 08/07/22 [facility] [address] [place] [address]- Attending Physician: Ira Weiss Admitting Physician: Ira Weiss Referring Physician: AdmtrIra Allergies, Adverse Reactions, Alerts Substance Reaction Severity Status Other Food Allergy 1 Active 1sunflower seeds throat swells up Medications anastrozole 1 mg oral tablet 1 tablet = 1 mg, By Mouth, Daily, # 30 tablet, 2 Refills, Maintenance, 03/31/22 12:12:00 EST, Tablet, [facility]/pharmacy #[id number], Partial fill upon patient request if the prescription is for a schedule II opioid drug., 163, cm, 03/31/22 8:53:00 EST, Height, 6... Start Date: 03/31/22 Status: Ordered Carafate Tablet 1 Gm, By Mouth, 3 times a day before meals and bedtime, Maintenance, 06/22/13 16:22:33 Start Date: 06/22/13 Status: Ordered ferrous fumarate 300 mg oral [...] Team Personnel Name: Genie Moran MD Position: [facility] Outreach Member Role: PCP Address: Address: [address] [place] [address] [address] [place] [address]- Name: Tana Schaefer NP Position: [facility] PCO Associate Professional Member Role: Primary Care Nurse Address: Address: [address] [place] [address]- Name: Karyn Sweeney RN Position: [facility] SN RN Member Role: Primary Care Nurse Name: Marianna Cruz RN Position: [facility] RN Member Role: Primary Care Nurse Care Team Related Persons Name: RACHELLE HERNANDEZ Address: home [address] [place] [address] Name: YANCI DELAROSA Address: [place] [address]
--- OUTSIDE RECORDS SUMMARY | 2024-04-15 22:00 | XMS_ITS | Continuity of Care Document ---
Author Organization [facility] ancer Care Address [address] [place] [address]- Care Team Providers Care Artificial Flowers Starcher Name Role Phone Luisa GLASER, Genie Timmons [id number] - 04/18/23 [facility] Care [address] [place] [address]- Discharge Disposition: A-D/C Home Attending Physician: Placido [...] tablet, 3 Refills, Maintenance, 02/11/23 10:41:00 EDT, [facility]/pharmacy#[id number], 164.3, cm, 02/11/23 9:42:00 EDT, Height, [...] oldest [Reference Range]: 1 Height 164.3 cm (02/11/23 9:42 AM) Weight 57.7 kg (02/11/23 9:42 AM) Oxygen Saturation [94-100 %] 100 % (02/11/23 9:42 AM) Pulse Rate [55-90 bpm] 76 bpm (02/11/23 9:42 AM) Body Mass Index [18.5-24.99 kg/m2] 21.37 kg/m2 (02/11/23 9:42 AM) Blood Pressure [90-138/55-84 mm Hg] 128/ 82mm Hg (02/11/23 9:42 AM) Temperature [96.8-100.4 DegF] 98.2 DegF (02/11/23 9:42 AM) Mode of Delivery (Oxygen) Room air (02/11/23 9:42 AM) Blood pressure sites Arm, right (02/11/23 9:42 AM) Temperature Route Oral (02/11/23 9:42 AM) Dry Weight 57.7 kg (02/11/23 9:42 AM) Weight Obtained Via Standing scale (02/11/23 9:42 AM) Dry Weight Obtained Via Standing scale (02/11/23 9:42 AM) Social History Social History Type Response Smoking Status Never smoker entered on: 4/10/14 Sex Note * Sujatha Alonso: PERFORM, SIGN, VERIFY Event Display: Patient Education/Instruction Authored Date: [id number] [facility] *Heme/Onc Adult Clinical Summary Name NADYA DELAROSA Age 67 Years 1955 PCP Luisa GLASER, Genie Timmons PCP Visit Date 02/09/2023 08:08:00 Additional Instructions: Scheduled Appointments?? Future Appointments ?[address]??[place],??[place],??[address] ?Phone:??[phone]?Fax:??-- ?Appt. Date:??02/12/2023?9:30 AM ?Scheduled Provider:??[address] CT [address] 2 ?*BSA??Plastic [address]??[place],??[place],??[address] ?Phone:??--?Fax:??-- ?Appt. Date:??04/09/2023?2:00 PM ?Scheduled Provider:??Jhoan GLASER , Jorge Johnson Follow-Up Instructions ?? With: Address: When: Placido Wheeler [address] [facility] [place] [address] Business (1) 05/12/2023 10:45 AM Diagnosis Medications: Please continue your medications [...] tab(s) Oral Daily. Refills: 2. Next Dose: Exemestane (exemestane 25 mg oral [...] orders Vital Signs Height 164.3 cm Weight 57.7 kg BMI 21.37 kg/m2 Blood Pressure 128 mm Hg/82 mm Hg Temperature 98.2 DegF Pulse Rate 76 bpm Respiratory Rate 02 Sat Mode of Delivery 100 %/Room air You can now view a summary of your hospital visit from the comfort of your home through a free online portal called 5gig. [employer] is a website that allows you to securely view your medical information including discharge summary, medications and follow-up visits. ??You can alsosend a secure electronic message to your doctor???s office to request appointments, renew medications or just ask a question. You can enroll at [email or web address] or register during your next office visit. [...] primary care provider, you may find a [facility] provider by calling [employer] Link at [phone]. [facility], in keeping with [facility] guidance, no longer requires face masks for staff, patientsor visitors in most situations. Similar to time spent indoors at other locations, there is the chance that you were exposed to respiratory viruses during your time with us (such as flu or COVID-19).? If you develop symptoms concerning for a viral respiratory infection, please seek testing (and treatment if indicated) from your medical provider or home test kit. For information about the plan of care [...] Team Personnel Name: Genie Moran MD Position: [facility] Outreach Member Role: PCP Address: Address: [address] [place] [address]- [place] Name: Marianna Kinsey RN Position: [facility] RN Member Role: Primary Care Nurse Name: Tana Schaefer NP Position: [facility] PCO Associate Professional Member Role: Primary Care Nurse Address: Address: [address] [place] [address]- [place] Name: Karyn Sweeney RN Position: S RN Member Role: Primary Care Nurse Care Team Related Persons Name: CLAUDINE ELIZABETH Name: RACHELLE HERNANDEZ Address: [address] [address]
--- OUTSIDE RECORDS SUMMARY | 2024-04-15 22:00 | XMS_ITS | Continuity of Care Document ---
Author Organization [facility] Plastic Marni niurka Address [address] [place] [address] [address] [place] [address]- Care Team Providers Care Driftman Name Role Phone Genie Moran MD Primary Care Physician [phone] [place] [facility] Date(s): 04/27/22 - 05/04/22 [facility] [address] [place], [place] [address] Attending Physician: Jorge Staples MD [...] oldest [Reference Range]: 1 Height 163 cm (04/27/22 9:29 AM) Weight 69.3 kg (04/27/22 9:29 AM) Body Mass Index [18.5-24.99 kg/m2] 26.08 kg/m2 *H* (04/27/22 9:29 AM) Temperature [96.8-100.4 DegF] 97.8 DegF (04/27/22 9:29 AM) Temperature Route Temporal (04/27/22 9:29 AM) Weight Obtained Via Standing scale (04/27/22 9:29 AM) Social History Social History Type Response Smoking Status Never smoker entered on: 08/31/13 Sex Patient Care team information Care Team Personnel Name: Genie Moran MD Position: [facility] Outreach Member Role: PCP Address: Address: [address] [place] [address]- Name: Tana Schaefer NP Position: [facility] PCO Associate Professional Member Role: Primary Care Nurse Address: Address: [address] [place] [address]- Name: Karyn Sweeney RN Position: [facility] SN RN Member Role: Primary Care Nurse Name: Marianna Cruz RN Position: [facility] RN Member Role: Primary Care Nurse Care Team Related Persons Name: MARY DONGCAROLINE Address: home [address] [place] [address] Name: YANCI DELAROSA Address: [place] [address]
--- OUTSIDE RECORDS SUMMARY | 2024-04-15 22:00 | XMS_ITS | Continuity of Care Document ---
Author Organization [facility] Address [address] [place] [address] [address], [address] [place] [address]- Care Team Providers Care Road Test Examiner Name Role Phone Luisa GLASER, Genie Timmons Primary Care Physician En[place] [facility] Date(s): 11/26/20 - 12/26/20 [facility] [address] [place] [address] Drive, [address] [place], [place] [address] Allergies, Adverse Reactions, Alerts Substance Reaction [...]
--- OUTSIDE RECORDS SUMMARY | 2024-04-15 22:00 | XMS_ITS | Continuity of Care Document ---
Author Organization [facility] Address [address] [place] [address]- Care Team Providers Care Carton Maker Name Role Phone Genie Moran MD Primary Care Physician [phone] Encounter [facility] Date(s): 01/31/24 - 03/01/24 [facility] [address] [place], [place] [address] Attending Physician: Admtr, Ar8 Admitting Physician: Admtr, [...] tablet, 1 Refills, Maintenance, 07/28/23 13:24:00 EST, [facility], Partial fill upon patient [...] [address] [place] [address]- Name: Marianna Kinsey RN Position: S RN Member Role: Primary Care Nurse Name: Esther Blackburn RN Position: S RN Member Role: Primary Care Nurse Name: Olive CORPORATE COMMUNICATIONS INTERN, Tana Johnson Position: [facility] PCO Associate Professional Member Role: Primary Care Nurse Address: Address: [address] [place] [address]- Name: Karyn Sweeney RN Position: [facility] SN RN Member Role: Primary Care Nurse Name: Matheus Nieves RN Position: S RN Member Role: Primary Care Nurse Care Team Related Persons Name: CLAUDINE ELIZABETH Address: [address] [place] [address] Name: RACHELLE DELAROSA Address: [address] [place] [address]
--- OUTSIDE RECORDS SUMMARY | 2024-04-15 22:00 | XMS_ITS | Continuity of Care Document ---
Author Organization [facility] Address [address] [place] [address]- Care Team Providers Care Hair Preparer Name Role Phone Genie Moran MD Primary Care Physician Encounter [facility] Date(s): 02/11/22 - 06/30/22 [facility] [address] [place] [address] Discharge Disposition: A-D/C Home Attending Physician: Placido Wheeler DO Admitting Physician: Zak GLASER, Asher Referring Physician: Genie Moran MD Allergies, Adverse [...] 2 Refills, Maintenance, 03/31/22 12:12:00 EST, Tablet, [facility]/pharmacy #[id number], Partial fill upon patient request if the [...] 1 Refills, Maintenance, 05/09/22 9:02:00 EST, Suspension, [facility]/pharmacy #[id number], Partial fill upon patient [...] to oldest [Reference Range]: 1 2 3 Height 164.3 cm (04/30/22 11:20 AM) 166 cm (04/29/22 11:37 AM) 163 cm (03/31/22 8:53 AM) Weight 62.2 kg (04/30/22 11:20 AM) 62.5 kg (04/29/22 11:37 AM) 66.5 kg (03/31/22 8:53 AM) Oxygen Saturation [94-100 %] 100 % (04/30/22 11:20 AM) 100 % (04/29/22 11:37 AM) 98 % (03/31/22 8:53 AM) Pulse Rate [55-90 bpm] 92 bpm *H* (04/30/22 11:20 AM) 93 bpm *H* (04/29/22 11:37 AM) 85 bpm (03/31/22 8:53 AM) Body Mass Index [18.5-24.99 kg/m2] 23.04 kg/m2 (04/30/22 11:20 AM) 22.68 kg/m2 (04/29/22 11:37 AM) 25.03 kg/m2 *H* (03/31/22 8:53 AM) Blood Pressure [90-138/55-84 mm Hg] 110/67mm Hg (04/30/22 11:20 AM) 109/70mm Hg (04/29/22 11:37 AM) 127/72mm Hg (03/31/22 8:53 AM) Temperature [96.8-100.4 DegF] 98.0 DegF (04/30/22 11:20 AM) 98.2 DegF (04/29/22 11:37 AM) 98.4 DegF (03/31/22 8:53 AM) Mode of Delivery (Oxygen) Room air (04/30/22 11:20 AM) Room air (03/31/22 8:53 AM) Blood pressure sites Arm, right (04/30/22 11:20 AM) Arm, right (04/29/22 11:37 AM) Arm, right (03/31/22 8:53 AM) Temperature Route Oral (04/30/22 11:20 AM) Oral (04/29/22 11:37 AM) Temporal (03/31/22 8:53 AM) Dry Weight 62.2 kg (04/30/22 11:20 AM) 62.5 kg (04/29/22 11:37 AM) 66.5 kg (03/31/22 8:53 AM) Weight Obtained Via Standing scale (04/30/22 11:20 AM) Standing scale (04/29/22 11:37 AM) Standing scale (03/31/22 8:53 AM) Dry Weight Obtained Via Standing scale (04/30/22 11:20 AM) Standing scale (04/29/22 11:37 AM) Standing scale (03/31/22 8:53 AM) Social History Social History Type Response Smoking Status Never smoker entered on: 08/31/13 Sex Note * Viki Abreu: PERFORM, SIGN, VERIFY Event Display: Patient Education/Instruction Authored Date: [id number] [facility] *Heme/Onc Adult Clinical Summary Name NADYA DELAROSA Age 66 Years 1955 PCP Luisa GLASER, Gneie Timmons PCP Visit Date 02/11/2022 15:26:00 Additional Instructions: Scheduled Appointments?? Future Appointments ?*[facility] [address]??[place],??[address] ?Phone:??--?Fax:??-- ?Appt. Date:??03/31/2022?3:00 PM ?Scheduled Provider:??Andi GLASER, Shruthi Timmons ?*[facility]??Plastic [address]??[place],??[address] ?Phone:??--?Fax:??-- ?Appt. Date:??04/06/2022?10:00 AM ?Scheduled Provider:??Mariama Serrato ?*[facility]??Plastic [address]??[place],??[address] ?Phone:??--?Fax:??-- ?Appt. Date:??04/13/2022?10:20 AM ?Scheduled Provider:??Mariama Serrato ?*[facility]??Plastic [address],??[place],??[address] ?Phone:??--?Fax:??-- ?Appt. Date:??04/20/2022?10:00 AM ?Scheduled Provider:??Mariama Serrato ?*[facility]??[facility]astic [address],??[place],??[address] ?Phone:??--?Fax:??-- ?Appt. Date:??04/27/2022?9:20 AM ?Scheduled Provider:??Mariama Serrato ?*[facility]??[facility] [address]??[place],??[address] ?Phone:??--?Fax:??-- ?Appt. Date:??05/04/2022?9:40 AM ?Scheduled Provider:??Mariama Serrato Follow-Up Instructions ?? With: Address: When: Placido Wheeler [address] [place] [address] [place] [address] [facility] (1) 04/29/2022 11:00 AM Diagnosis Medications: Please continue your medications until treatment is completed or stopped by your provider. Discuss any questions related to medications with your provider. Medications to Continue with No Changes These medications were not printed or sent to your pharmacy Acetaminophen (Tylenol Extra Strength 500 mg oral tablet) 1 tab(s) Oral every 6 hours as needed as needed for pain for 14 Days. (no more than 4 tabs a day). Refills: 0. Next Dose: Albuterol (ProAir HFA) 2 puff(s) Inhalation every 6 hours as needed Wheezing/Shortness of Breath. Next Dose: Ibuprofen (ibuprofen 600 mg oral tablet) 1 tab(s) Oral every 6 hours for 14 Days. alternate every 6hrs with tylenol. Refills: 0. Next Dose: Lidocaine Topical (lidocaine 4% topical cream) 1 jorge Topically once. Apply to nipple areola 1 hour before arriving for surgery, cover with saran wrap.. Refills: 0. Next Dose: Omeprazole Oral Daily. Next Dose: Ondansetron (Zofran ODT 4 mg oral tablet, disintegrating) 4 Milligram Oral every 8 hours as needed Nausea & Vomiting. Refills: 0. Next Dose: Oxycodone (oxyCODONE 5 mg oral tablet) 1 tab(s) Oral every 6 hours as needed for pain. for break thru pain. Refills: 0. Next Dose: Sucralfate (Carafate Tablet) 1 gram Oral 3 times a day before meals and bedtime. Next Dose: Allergy Info:?? Other Food Allergy Medications Given This Visit Future Orders ?No future orders Vital Signs Height 163 cm Weight 66.5 kg BMI 25.03 kg/m2 Blood Pressure 127 mm Hg/72 mm Hg Temperature 98.4 DegF Pulse Rate 85 bpm Respiratory Rate 02 Sat Mode of Delivery 98 %/Room air You can now view a summary of your hospital visit from the comfort of your home through a free online portal called [employer]. [employer] is a website that allows you to securely view your medical information including discharge summary, medications and follow-up visits. ??You can alsosend a secure electronic message to your doctor???s office to request appointments, renew medications or just ask a question. You can enroll at [email or web address] or register during your next office [...] primary care provider, you may find a [facility] provider by calling [facility] Link at [phone]. For information about the plan of care including goals and instructions for your diagnosis, please see the patient education orders section of this document. Patient Education Materials?? The content of this educational material or handout may have been modified, supplemented, or adapted from its original content and format to support your individualized medical care. * Event Display: Genetic Labs, Non BH Authored Date: Patient Care team information Care Team Personnel Name: Genie Moran MD Position: [facility] Outreach Member Role: PCP Address: Address: [address] [place] [address]- [place] Name: Olive DERAS, Tana Johnson Position: [facility] PCO Associate Professional Member Role: Primary Care Nurse Address: Address: [address] [place] [address]- [place] Name: Karyn Sweeney RN Position: [facility] SN RN Member Role: Primary Care Nurse Name: Marianna Cruz RN Position: [facility] RN Member Role: Primary Care Nurse Care Team Related Persons Name: RACHELLE HERNANDEZ Address: home [address] [place] [address] Name: YANCI DELAROSA Address: [place] [address]
--- OUTSIDE RECORDS SUMMARY | 2024-04-15 22:00 | XMS_ITS | Continuity of Care Document ---
Author Organization [facility] Plastic Marni niurka Address [address] [place], [place] [address] [address] [place] [address]- Care Team Providers Care Messenger Copy Name Role Phone Genie Moran MD Primary Care Physician [phone] [place] [facility] Date(s): 04/09/23 - 05/09/23 [facility] [address] [place], [place] [address] Attending Physician: Ira Weiss Admitting Physician: AdmtrIra [...] tablet, 3 Refills, Maintenance, 02/11/23 10:41:00 EDT, [facility]/pharmacy#[id number], 164.3, cm, 02/11/23 9:42:00 [...] [address] [place] [address]- Name: Marianna Kinsey RN Position: [facility] RN Member Role: Primary Care Nurse Name: Tana Schaefer NP Position: [facility] PCO Associate Professional Member Role: Primary Care Nurse Address: Address: [address] [place] [address]- Name: Karyn Sweeney RN Position: [facility] SN RN Member Role: Primary Care Nurse Care Team Related Persons Name: CLAUDINE ELIZABETH Name: RACHELLE HERNANDEZ Address: home [address] [place] [address]
--- OUTSIDE RECORDS SUMMARY | 2024-04-15 22:00 | XMS_ITS | Continuity of Care Document ---
Author Organization [facility] Address [address] [place] [address]- Care Team Providers Care Watch Parts Grinder Name Role Phone Luisa GLASER, Genie Timmons Primary Care Physician [place] [facility] [place](s): 03/31/22 - 04/30/22 [facility] [address] [place] [address] Allergies, Adverse Reactions, Alerts Substance [...] COUNTY Outreach Member Role: PCP Address: Address: [address] [place] [address]- Name: Tana Schaefer NP Position: [facility] PCO Associate Professional Member Role: Primary Care Nurse Address: Address: [address] [place] [address]- Name: Karyn Sweeney RN Position: [facility] SN RN Member Role: Primary Care Nurse Name: Marianna Cruz RN Position: [facility] RN Member Role: Primary Care Nurse Care Team Related Persons Name: RACHELLE HERNANDEZ Address: home [address] [place] [address] Name: YANCI DELAROSA Address: [place] [address]
--- OUTSIDE RECORDS SUMMARY | 2024-04-15 22:00 | XMS_ITS | Continuity of Care Document ---
Author Organization [facility] Plastic Marni niurka Address [address] [place] [address] [facility] [address] [place] [address]- Care Team Providers Care Travel Registered Nurse Oncology Name Role Phone Genie Moran MD Primary Care Physician [place] [facility] [id number] Date(s): 09/09/23 - 09/16/23 [facility] [address] [address]- Attending Physician: Patricia Pride Referring Physician: Genie Moran MD Allergies, Adverse [...] tablet, 1 Refills, Maintenance, 07/28/23 13:24:00 EST, [facility], Partial fill [...] tablet, 3 Refills, Maintenance, 02/11/23 10:41:00 EDT, [facility]/pharmacy#[id number], 164.3, cm, 02/11/23 9:42:00 EDT, Height, [...] oldest [Reference Range]: 1 Height 165 cm (09/09/23 1:02 PM) Weight 60.8 kg (09/09/23 1:02 PM) Body Mass Index [18.5-24.99 kg/m2] 22.33 kg/m2 (09/09/23 1:02 PM) Social History Social History Type Response Smoking Status Never smoker entered on: 08/31/13 Sex Patient Care team information Care Team Personnel Name: Genie Moran MD Position: [facility] Outreach Member Role: PCP Address: Address: [address] [place] [address]- Name: Marianna Kinsey RN Position: [facility] RN Member Role: Primary Care Nurse Name: Esther Blackburn RN Position: [facility] RN Member Role: Primary Care Nurse Name: Olive COOK HELPER JUICETana Position: [facility] PCO Associate Professional Member Role: Primary Care Nurse Address: Address: [address] [place] [address]- Name: Karyn Sweeney RN Position: [facility] SN RN Member Role: Primary Care Nurse Name: Matheus Nieves RN Position: [facility] RN Member Role: Primary Care Nurse Care Team Related Persons Name: CLAUDINE ELIZABETH Address: [address] [place] [address] Name: RACHELLE DELAROSA Address: [address] [place] [address]
--- OUTSIDE RECORDS SUMMARY | 2024-04-15 22:00 | XMS_ITS | Patient Health Record ---
Author Organization [facility] [place] Address [address] [place] [id number] Care Team Providers Care Victims Advocate Clerk/Specialist Name Role Phone Joshuaconrado Genie Primary Care Provider Unavailab Adis Parson Unavailable [phone] ALLERGIES Allergen (clinical drug ingredient) Drug/Non Drug Allergy documented on EMR Reaction Allergy Type Onset Date Status sunflower seeds (uncoded) Unknown Allergy Active REASON FOR REFERRAL No Information MEDICATIONS Medication SIG (Take, Route, Frequency, Duration) Notes Start Date End Date Status Omeprazole 40 MG TAKE 1 CAPSULE BY MOUTH TWICE A DAY for 90 Please tell patient that she needs to make an office appointment with me Active flovent HFA Active Multivitamin Active Omeprazole 20 MG 1 capsule Orally twice a day Active ProAir HFA Active iron 1 tab Oral Active Carafate 1GM/10ML 10 ml Orally Twice a day for 30 days Active IMMUNIZATIONS Vaccine Route Administration Date Status Comme nts Influenza Unknown 10/29/2020 Refused SOCIAL HISTORY Sex Assigned At : Social History Observation Description Sex Assigned At Unknown PROBLEMS Problem Type ICD Code Onset Dates Problem Status W/U Status Risk SNOMED Code Notes Problem Esophageal stricture (K22.2) Active confirmed Esophageal stricture (73287533) Problem Iron deficiency anemia due to chronic blood loss (D50.0) Active confirmed 43629120 Problem Erosive esophagitis (K22.10) Active confirmed 80237967 Problem Achalasia (K22.0) Active confirmed 91576096 Problem Esophageal dysphagia (R13.10) Active confirmed [id number] PLAN OF TREATMENT Pending Test Test Name Order Date IRON + IBC (FE) 03/15/2016 IRON + IBC (FE) 08/16/2012 FERRITIN 03/15/2016 FERRITIN 08/16/2012 VITAMIN B12 AND FOLATE 03/15/2016 VITAMIN B12 AND FOLATE 08/16/2012 CBC w DIFF 03/15/2016 CBC w DIFF 08/16/2012 CBC w DIFF 10/29/2020 Future Test Test Name Order Date UPPER GI ENDOSCOPY 10/01/2015 UPPER GI ENDOSCOPY 10/29/2020 Insurance Providers Payer Name Payer Address Payer Phone Subscriber Number Group Number Insured Name Patient Relationship to Insured Coverage Start Date Coverage End Date MEDICAID OF [employer] [address] [place] [id number] NADYA DELAROSA Self - patient is the insured MEDICAL (GENERAL) HISTORY Medical History History ICD Code Achalasia-she has had 2 surg eries for the achalasia as described below-had an endoscopy in 2009, at which time she presented with a complete esophageal obstruction relation to food-at that time I spent over one hour cleaning out the esophagus-I did not visualize any mucosal lesions within the esophagus at that time Denies MA,DM,CVA,Lung disease,renal dise ase Anemia, with IV iron infusio ns in April 2012 for a hemoglobin of 6.9. and 2014--had transfusions in 05/2015 and 06/2015 at [facility] Kidney stones Broken right hand in 3 places and wrist. 2013 EGD in 11/2012--erosive esoph agitis with ulceration and Obdulia--no Ron's--dilated and fluid-filled esophagus Colonoscopy in 11/2012--negat sarah for polyps/AVM's---does have diverticulosis and internal hemorrhoids EGD in 11/2015---erosive esophagitis and changes c/w achalasia Surgical History Surgery Date(Month/Year) Achalasia with laparoscopic Heller myotomy [place] [address] Light. cholecystectomy In August of 2011 she had a l aparoscopic redo Heller myotomy and takedown of the previous fundoplication by Dr. Gillespie, due to ongoing and significant problems with dysphasia, esophageal obstructions, and regurgitation. right wrist surgery 06/2013
--- OUTSIDE RECORDS SUMMARY | 2024-04-15 22:00 | XMS_ITS | Continuity of Care Document ---
Author Organization [facility] Address [address] [place] [address]- Care Team Providers Care Press Breaker Name Role Phone Luisa GLASER, Genie Timmons Primary Care Physician [phone] [facility] [id number] Date(s): 02/09/23 - 03/11/23 [facility] Care [address] [place] [address]- Attending Physician: Ira Weiss Admitting Physician: Admtr, [...] Team Personnel Name: Genie Moran MD Position: [facility] Outreach Member Role: PCP Address: Address: [address] [place] [address]- [place] Name: Marianna Kinsey RN Position: [facility] RN Member Role: Primary Care Nurse Name: Tana Schaefer NP Position: [facility] PCO Associate Professional Member Role: Primary Care Nurse Address: Address: [address] [place] [address]- [place] Name: Karyn Sweeney RN Position: [facility] SN RN Member Role: Primary Care Nurse Care Team Related Persons Name: CLAUDINE ELIZABETH Name: RACHELLE HERNANDEZ Address: home [address] [place] [id number]
--- OUTSIDE RECORDS SUMMARY | 2024-04-15 22:00 | XMS_ITS | Continuity of Care Document ---
Author Organization [facility] Address [address] [place] [address]- Care Team Providers Care Pipe Fitter Gas Pipe Name Role Phone Luisa GLASER, Genie Timmons Primary Care Physician Encounter [facility] Date(s): 02/01/24 - 03/02/24 [facility] [address] [place] [address]- [place] Allergies, Adverse Reactions, Alerts Substance Reaction Severity [...] tablet, 1 Refills, Maintenance, 07/28/23 13:24:00 EST, [facility], Partial fill upon patient [...] Outreach Member Role: PCP Address: Address: [address] [place] [address]- [place] Name: Marianna Kinsey RN Position: [facility] RN Member Role: Primary Care Nurse Name: Esther Blackburn RN Position: [facility] RN Member Role: Primary Care Nurse Name: Tana Schaefer NP Position: [facility] PCO Associate Professional Member Role: Primary Care Nurse Address: Address: [address] [place] [address]- [place] Name: Karyn Sweeney RN Position: [facility] SN RN Member Role: Primary Care Nurse Name: Matheus Nieves RN Position: [facility] RN Member Role: Primary Care Nurse Care Team Related Persons Name: CLAUDINE ELIZABETH Address: home [address] [place] [address] Name: RACHELLE DELAROSA Address: home [address] [place] [address]
--- OUTSIDE RECORDS SUMMARY | 2024-04-15 22:00 | XMS_ITS | Continuity of Care Document ---
Author Organization [facility] Address [address] [place] [address] [address], [address] [place] [address]- Care Team Providers Care Econometrician Name Role Phone Luisa GLASER, Genie Timmons Primary Care Physician [place] [facility] [place]s): 10/30/20 - 12/01/20 [facility] [address] [place] [address] Drive, [address] [place], [place] [address] Attending Physician: Kerri eMndieta MD Referring Physician: Rocio [GI] Adis GLASER Allergies, Adverse Reactions, Alerts Substance Reaction Severity [...]
[2024-04-15 22:11] LABS: Basophils Percent Auto 0.6 % (0-2); Eosinophils Absolute Auto 0.3 X10*3/uL (0.0-0.4); Eosinophils Percent Auto 3.8 % (0-4); Hematocrit 34.2 % (37.0-47.0); Hemoglobin 10.9 g/dl (12.0-16.0); Imm Gran Abs Auto 0.01 X10*3/uL (0.00-0.03); Imm Gran Pct Auto 0.1 % (0.0-0.4); Lymphocytes Absolute Auto 1.4 X10*3/uL (1.2-4.9); Lymphocytes Percent Auto 19.3 % (20-40); Mean Corpuscular HGB Conc 31.9 g/dl (31.0-35.0); Mean Corpuscular Hemoglobin 26.3 pg (27.0-33.0); Mean Corpuscular Volume 82.4 fL (80.0-98.0); Mean Platelet Volume 11.1 fL (9.4-12.3); Monocytes Absolute Auto 0.9 X10*3/uL (0.1-1.2); Monocytes Percent Auto 12.8 % (2-11); Neutrophils Absolute Auto 4.5 x10*3/uL (2.0-8.3); Neutrophils Percent Auto 63.4 % (45-73); Platelet Count 311 X10*3/uL (160-400); Red Blood Count 4.15 X10*6/uL (4.20-5.50); White Blood Count 7.1 X10*3/uL (4.8-10.8)
[2024-04-15 22:12] LABS: Alanine Aminotransferase 8 U/L (0-31); Albumin Level 3.4 g/dL (3.5-5.0); Alkaline Phosphatase 154 U/L (39-117); Anion Gap 10 (12-20); Aspartate Amino Transferase 23 U/L (5-31); Bilirubin Total 0.3 mg/dL (0.0-1.0); Blood Urea Nitrogen 13 mg/dL (9-16); Calcium 9.2 mg/dL (8.4-10.2); Carbon Dioxide 26 mmol/L (22-29); Chloride 108 mmol/L (96-108); Creatinine Clr Calc Pharmacy 62.5; Estimated Glomerular Filt Rate > 60; Glucose Random 136 mg/dL (60-115); Lipase 8 U/L (8-78); Potassium 4.3 mmol/L (3.3-5.1); Sodium 140 mmol/L (135-145); Total Protein 5.9 g/dL (6.5-8.0)
--- NOTE | 2024-04-15 22:12 | PC.NURSE ---
Pt from EM, pt moans continually, informed pt, of the need for urine, pt up to the bathroom,
--- NOTE | 2024-04-15 22:35 | ED_ITS ---
HPI - General Adult General Chief complaint: Abdominal Pain Stated complaint: back pain Time Seen by Provider: 04/15/24 22:35 History of Present Illness ED Provider: Cecy AGUILAR narrative: The patient is a 68-year-old woman who says that she developed significant left- sided flank pain radiating to her left groin at around 18:00 this evening. She says that this feels similar to pain she has had with kidney stones in the past. She is having a great deal of pain. Related Data Home Medications ?Medication ?Instructions ?Recorded ?Confirmed albuterol sulfate 90 mcg/actuation 2 puff inhalation QID PRN 11/13/20 12/26/21 aerosol inhaler Shortness Of Breath Or Wheezing albuterol sulfate 90 mcg/actuation 2 puff inhalation QID 11/13/20 12/26/21 aerosol inhaler (ProAir HFA) ferrous fumarate 324 mg (106 mg 1 tab PO DAILY 11/13/20 12/26/21 iron) tablet (Ferrocite) fluticasone propionate 220 1 puff inhalation BID 11/13/20 12/26/21 mcg/actuation HFA aerosol inhaler (Flovent HFA) ibuprofen 600 mg tablet 1 tab PO Q8H 11/13/20 12/26/21 omeprazole 20 mg capsule,delayed 1 cap PO BID 11/13/20 12/26/21 release sucralfate 100 mg/mL oral 2 PO DAILY 11/13/20 12/26/21 suspension (Carafate) Previous Rx's ?Medication ?Instructions ?Recorded cyclobenzaprine 10 mg tablet 10 mg PO BEDTIME PRN muscle spasm 07/27/21 #14 tabs ibuprofen 400 mg tablet 400 mg PO Q6H PRN pain #14 tabs 04/16/24 ondansetron 4 mg disintegrating 4 mg PO Q6H PRN nausea and 04/16/24 tablet vomiting #10 tabs oxycodone 5 mg tablet 5 mg PO Q6H PRN pain #12 tabs 04/16/24 Allergies Allergy/AdvReac Type Severity Reaction Status Date / Time sunflower seed Allergy Severe ANAPHYLAXIS Verified 04/15/24 21:52 [SUNFLOWER SEED] Review of Systems 2 Review of Systems: Yes all other systems are reviewed and are negative PMFSH Past Medical History Medical History Achalasia Anemia Asthma History of blood transfusion Hx of renal calculi Invasive lobular carcinoma of breast in female Left breast mass Surgical History History of esophageal surgery History of esophagogastroduodenoscopy (EGD) History of hand surgery Hx of cholecystectomy Hx of colonoscopy Family History Family History Maternal Aunt Breast cancer Social History Social History Patient Tobacco Use Status: Never used Tobacco Smoked in Last 30 Days: No Use of substances other than those prescribed or required for medical reasons: No Advance Directives: No Advance Directives Information Provided: Yes Do you have a plan to hurt others: No Plan Physical Exam ED Vital Signs: Vital Signs - 24 hr 04/15/24 21:48 04/16/24 00:15 04/16/24 01:59 Temperature 98.0 F 98.2 F 97.9 F Pulse Rate 68 69 62 Respiratory Rate 16 16 16 Blood Pressure 155/90 H 123/60 123/58 L Pulse Oximetry 100 95 95 Oxygen Delivery Method Room Air Room Air Room Air 04/16/24 03:34 Temperature 97.9 F Pulse Rate 62 Respiratory Rate 16 Blood Pressure 123/58 L Pulse Oximetry 95 Oxygen Delivery Method Room Air BMI result Body Mass Index 23.2 Const Other: Patient is a thin, somewhat chronically ill-appearing 68-year-old who was moaning in pain. HENMT Other: Face is symmetrical. Mucous membranes moist. Eyes Other: Pupils are round equal, conjunctivae are clear, extraocular movements are intact. Neck Other: No JVD. Normal range of motion of the neck. Resp Effort & Inspection: normal respiratory effort Auscultation: clear to auscultation bilaterally Cardio Rate: regular rate Rhythm: regular rhythm Heart sounds: S1 normal heart sound present and S2 normal heart sound present GI Other: The abdomen is soft and does not seem significantly tender. Back/Spine/Pelvis Other: There is left-sided CVA percussion tenderness Skin Other: Skin is pale and dry Neuro Other: The patient is awake and alert. Cranial nerves were intact. She moves her extremities symmetrically. Extrem Other: No peripheral edema Medications Administered Discontinued Medications Generic Name Dose Route Start Last Admin Trade Name Freq PRN Reason Stop Dose Admin Hydromorphone HCl 1 mg 04/15/24 23:14 04/15/24 23:25 Hydromorphone Hcl 1 Mg/Ml Syringe IVPUSH 04/15/24 23:15 1 mg ONCE ONE Administration Protocol Sodium Chloride 1,000 mls @ 999 mls/hr 04/15/24 22:45 04/16/24 00:45 Ns IV 04/15/24 23:45 Infused .Q1H1M JONAS Infusion Acetaminophen 1,000 mg in 100 mls @ 400 mls/hr 04/16/24 01:39 04/16/24 02:28 Ofirmev IV 04/16/24 01:53 Infused ONCE ONE Infusion Lactated Ringer's 1,000 mls @ 999 mls/hr 04/16/24 01:45 04/16/24 02:48 Lr IV 04/16/24 02:45 Infused .Q1H1M JONAS Infusion Ketorolac Tromethamine 10 mg 04/15/24 22:40 04/15/24 22:51 Ketorolac Tromethamine 15 Mg/Ml Vial IVPUSH 04/15/24 22:41 10 mg ONCE ONE Administration Ondansetron HCl 4 mg 04/15/24 23:14 04/15/24 23:25 Ondansetron Hcl 4 Mg/2 Ml Vial IVPUSH 04/15/24 23:15 4 mg ONCE ONE Administration Oxycodone HCl 5 mg 04/16/24 01:39 04/16/24 01:47 Oxycodone Hcl Immed Release 5 Mg Tablet PO 04/16/24 01:40 5 mg ONCE ONE Administration Medical Decision Making Medical Decision Making [facility] Narrative: The patient is a 68-year-old woman who presents with the acute left-sided flank pain that she says feels similar to previous kidney stone pain. Symptoms began a few hours prior to arrival. The patient looks quite uncomfortable. She was given a dose of ketorolac without significant improvement in her pain. She was then given hydromorphone which was much more effective. A noncontrast CT of the abdomen and pelvis shows 2 small left distal ureteral stones near the UVJ. The stones are 2 mm x 3 mm and 2 mm x 4 mm in size. The patient was given oral oxycodone and IV acetaminophen. She was observed. Her pain stabilized and she felt well enough for outpatient management. She will be discharged with a prescription for oxycodone and ondansetron. She has a urologist because she has had previous kidney stones. Her urologist is Dr. James Muhammad. Her urinalysis is not suggestive of urinary tract infection. Lab Data 04/15/24 21:53 04/15/24 21:53 Labs: Lab Results 04/15/24 04/15/24 Range/Units 21:53 22:22 WBC 7.1 (4.8-10.8) X10*3/uL RBC 4.15 L (4.20-5.50) X10*6/uL Hgb 10.9 L (12.0-16.0) g/dl Hct 34.2 L (37.0-47.0) % MCV 82.4 (80.0-98.0) fL MCH 26.3 L (27.0-33.0) pg MCHC 31.9 (31.0-35.0) g/dl RDW 15.0 (11.0-16.0) % Plt Count 311 (160-400) X10*3/uL MPV 11.1 (9.4-12.3) fL Immature Gran % (Auto) 0.1 (0.0-0.4) % Neut % (Auto) 63.4 (45-73) % Lymph % (Auto) 19.3 L (20-40) % Gulf % (Auto) 12.8 H (2-11) % Eos % (Auto) 3.8 (0-4) % Baso % (Auto) 0.6 (0-2) % Lymph # (Auto) 1.4 (1.2-4.9) X10*3/uL Gulf # (Auto) 0.9 (0.1-1.2) X10*3/uL Eos # (Auto) 0.3 (0.0-0.4) X10*3/uL Baso # (Auto) 0.0 (0.0-0.2) X10*3/uL Abs Immat Gran (auto) 0.01 (0.00-0.03) X10*3/uL Absolute Neuts (auto) 4.5 (2.0-8.3) x10*3/uL Absolute Nucleated RBC 0.000 (0.0-0.012) X10*3/uL Nucleated RBC % (auto) 0.0 (0.0-0.2) /100WBC Sodium 140 (135-145) mmol/L Potassium 4.3 (3.3-5.1) mmol/L Chloride 108 (96-108) mmol/L Carbon Dioxide 26 (22-29) mmol/L Anion Gap 10 L (12-20) BUN 13 (9-16) mg/dL Creatinine 0.70 (0.5-1.4) mg/dL Estim Creat Clear Calc 62.5 Estimated GFR > 60 Random Glucose 136 H (60-115) mg/dL Calcium 9.2 (8.4-10.2) mg/dL Total Bilirubin 0.3 (0.0-1.0) mg/dL AST 23 (5-31) U/L ALT 8 (0-31) U/L Alkaline Phosphatase 154 H (39-117) U/L Total Protein 5.9 L (6.5-8.0) g/dL Albumin 3.4 L (3.5-5.0) g/dL Lipase 8 (8-78) U/L Urine Color Yellow Urine Appearance Cloudy Urine pH 7.0 (5.0-9.0) Ur Specific [place] 1.020 (1.005-1.025) Urine Protein Negative (Neg-Trace) mg/dL Urine Glucose (UA) Negative (Negative) mg/dL Urine Ketones Negative (Negative) mg/dL Urine Blood Small (1+) H (Negative) Urine Nitrite Negative (Negative) Ur Leukocyte Esterase Trace H (Negative) Urine RBC 11-20 H (0-2) /HPF Urine WBC 0-5 (0-5) /HPF Ur Squamous Epith Cells 0-2 (0-2) /HPF Urine Bacteria None Seen (None Seen) Hyaline Casts 0-2 (0-2) /LPF Discharge Plan Discharge Clinical Impression: Ureteral colic, Calculus of distal left ureter Patient Disposition: Home, Self-Care Instructions: Ureteral Stones (ED) Additional Instructions: Your CT scan shows that you have 2 small stones at the end of the ureter on the left side. One of the stones is 3 mm x 2 mm. The other stone is 4 mm x 2 mm. These stones are close to each other and are both very near the bladder. Stones of this size are small enough that they should pass into the bladder without a procedure by a urologist. My hope is that if the pain can be controlled over the next few days you will pass the stones on your own and will not need a procedure. For pain control you may use acetaminophen (Tylenol) up to 3 times a day. I have sent a prescription for ibuprofen tablets that you may use every 6 hours as needed. I have also sent a prescription for oxycodone that you may use in addition if necessary. For nausea I have sent a prescription for ondansetron that you may use when necessary. Drink lot of fluids. Contact your urologist on Wednesday morning for a follow up appointment. Return to the emergency room if significantly worse. Prescriptions: New oxycodone 5 mg tablet 5 mg PO Q6H PRN (Reason: pain) Qty: 12 0RF Rx Instructions: Partial Fill upon patient request. ibuprofen 400 mg tablet 400 mg PO Q6H PRN (Reason: pain) Qty: 14 0RF ondansetron 4 mg tablet,disintegrating 4 mg PO Q6H PRN (Reason: nausea and vomiting) Qty: 10 0RF No Action sucralfate [Carafate] 100 mg/mL suspension 2 PO DAILY omeprazole 20 mg capsule,delayed release(DR/EC) 1 cap PO BID Flovent HFA 220 mcg/actuation HFA aerosol inhaler 1 puff inhalation BID ibuprofen 600 mg tablet 1 tab PO Q8H albuterol sulfate [ProAir HFA] 90 mcg/actuation HFA aerosol inhaler 2 puff inhalation QID albuterol sulfate 90 mcg/actuation HFA aerosol inhaler 2 puff inhalation QID PRN (Reason: Shortness Of Breath Or Wheezing) ferrous fumarate [Ferrocite] 324 mg (106 mg iron) tablet 1 tab PO DAILY cyclobenzaprine 10 mg tablet 10 mg PO BEDTIME PRN (Reason: muscle spasm) Qty: 14 0RF Referrals: Genie Moran MD [Primary Care Provider] - (Left-sided kidney stones) James Muhammad MD [Physician] - (Two small left distal ureteral stones) Interventions: ED Discharge Assessment Last Done: 04/16/24 03:34 Discharge Date/Time: 04/16/24 03:35 Print Language: Turkmen
[2024-04-15 22:39] LABS: Appearance Urine Cloudy; Color Urine Yellow; Glucose Urine UA Negative (Negative); Leukocyte Esterase Urine Trace (Negative); Nitrite Urine Negative (Negative); UMIC TRIGGER UACC YES; Urine Blood Small (1+) (Negative); Urine Ketones Negative (Negative); Urine Protein Negative (Neg-Trace)
--- NOTE | 2024-04-15 22:40 | PC.NURSE ---
went into room, to inform pt, I needed to start an IV, pt states, I don't want you to touch me.'
[2024-04-15 22:44] LABS: Bacteria Urine None Seen (None Seen); Hyaline Casts Urine 0-2 /LPF (0-2); Squamous Epithelial Cell Urine 0-2 /HPF (0-2); WBC Urine 0-5 /HPF (0-5)
[2024-04-15] MEDS: Ketorolac Tromethamine 15 MG/ML VIAL 10 MG IVPUSH (22:51)
[2024-04-15] MEDS: 0.9 % Sodium Chloride 1,000 ML 999 ML IV (22:52)
--- NOTE | 2024-04-15 22:57 | PC.NURSE ---
report given to uYdi MANJARREZ
[2024-04-15] MEDS: HYDROmorphone HCl 1 MG/ML SYRINGE IVPUSH (23:25)
[2024-04-15] MEDS: ondansetron HCL 4 MG/2 ML VIAL IVPUSH (23:25)
[2024-04-16 00:15] VITALS: BP 123/60; PULSE 69; RESP 16; TEMP 36.8; O2SAT 95
--- NOTE | 2024-04-16 00:19 | MHC.EDTECH ---
This pct assumed care of at 0000 ,vitals taken ,Patient resting quietly in bed ,Patient son at bedside .
[2024-04-16] MEDS: oxyCODONE HCl Immed Release 5 MG TABLET PO (01:47)
[2024-04-16] MEDS: Acetaminophen 1,000 MG/100 ML PIGGYBACK 400 MG IV (01:48)
[2024-04-16] MEDS: Lactated Ringers 1,000 ML 999 ML IV (01:48)
[2024-04-16 01:59] VITALS: BP 123/58; PULSE 62; RESP 16; TEMP 36.6; O2SAT 95
[2024-04-16 03:34] VITALS: BP 123/58; PULSE 62; RESP 16; TEMP 36.6; O2SAT 95
== END 2024-04-16 03:35 | disposition home or self-care (01) ==
PROVIDERS: Emergency Provider Emergency Medicine; PCP Internal Medicine
DX: N13.2 Hydronephrosis with renal and ureteral calculous obstruction (principal)
CPT/HCPCS: 36415; 74176; 80053; 81001; 83690; 85025; 96361; 96374; 96375; 99284; 99285; J0131; J1171; J1885; J2405; J7120

== ENCOUNTER 2024-10-31 10:48 | Outpatient (REF) | payer OTHER, SELFPAY | END 2024-10-31 10:49 | disposition home or self-care (01) | LOC: HO.LAB 10:48 | PROVIDERS: PCP Internal Medicine; Visit Provider Physician Assistant | DX: N30.00 Acute cystitis without hematuria (principal); J30.2 Other seasonal allergic rhinitis | CPT/HCPCS: 81003; 87086; 87088; 87186; 99202 ==

== ENCOUNTER 2024-10-31 10:48 | Outpatient (AMB) | payer OTHER, SELFPAY ==
--- NOTE | 2024-10-31 10:53 | AM.OFFWIN_ITS ---
Intake Vital Signs 10/31/24 10:58 Weight 128 lb BP 108/70 Blood Pressure Location Rt brachial Position Sitting Pulse 68 Pulse Source Pulse Oximeter Temp 98.2 F Temp Source Oral Pulse Oximetry (%) 98 Oxygen Delivery Method Room Air Intake Visit Reasons: EP Ear blockage, UTI Intake Note: Patient here for urine odor and slight itching that has been present for about 2 weeks. And bilat ear discomfort Patient Tobacco Use Status: Never used Tobacco Allergies sunflower seed [SUNFLOWER SEED] Allergy (Severe, Verified 10/31/24 10:59) ANAPHYLAXIS Do you need a note to return to daycare/school/sports/work: No HPI HPI Comments History of Present Illness Details History of Present Illness - The patient is a 69 year old female pr esenting with bilateral ear congestion and possible urinary tract infection. - The ear congestion developed three day s ago, causing muffled hearing but without pain or drainage, and lacks fever history. - She recalls needing earwax removal pro cedures in the past. Does feel similar. - The urinary complaint includes malodor without dysuria, as well as increased frequency of urination. Denies low back pain, lower abdominal pain, fevers or blood in her urine. Says she has had recurrent urinary tract infections occurring monthly in the past year. The patient denies any fever or abdominal discomfort with these symptoms. - She has a known history of breast canc er with metastatic involvement of the left femur, recently non-receiving chemotherapy or radiation treatment. Physical Exam General: Cooperative, healthy appearing, comfortable, no acute distress and well developed Orientation: Patient oriented x3 Limitations: No limitations Head: Normal to inspection Ears: External ears normal bilaterally, EAC normal bilat, TM's normal bilat Nose: Normal External nose present Face and sinus: Normal facial exam mouth: normal oral mucosa, posterior oropharynx cobblestoning Eyes: Appearance normal, both eyes and all related structures Neck: Normal visual inspection and Yes full ROM Respiratory: Normal respiratory effort and able to speak in complete sentences. Skin: No rashes or lesions noted Neuro: Patient oriented x3 Extremities: Normal to inspection [facility] Medical History Achalasia Anemia Asthma History of blood transfusion Hx of renal calculi Invasive lobular carcinoma of breast in female Left breast mass Surgical History History of esophageal surgery History of esophagogastroduodenoscopy (EGD) History of hand surgery Hx of cholecystectomy Hx of colonoscopy Family History Maternal Aunt Breast cancer Social History Patient Tobacco Use Status: Never used Tobacco Female Reproductive History Menstrual Age of Menarche: 18 Review of Systems Const All systems reviewed & are unremarkable except as noted in HPI and below Physical Exam Vital Signs: Last Vital Signs Temp 98.2 F 10/31/24 10:58 Pulse 68 10/31/24 10:58 BP 108/70 10/31/24 10:58 Pulse Ox 98 10/31/24 10:58 Oxygen Delivery Method Room Air 10/31/24 10:58 Assessment & Plan Assessment & Plan (1) UTI (urinary tract infection): Code(s): N39.0 - Urinary tract infection, site not specified Qualifiers: Urinary tract infection type: acute cystitis Hematuria presence: without hematuria Qualified Code(s): N30.00 - Acute cystitis without hematuria Plan: UA + leuks, - blood, will treat for UTI - Administered an antibiotic for the urinary tract infection and submitted a urine culture to ensure targeted treatment. - Advisable temporary discontinuation of omeprazole while taking abx but permit Tums for gastritis management to ensure antibiotic efficacy. - Handled recurrent urinary infection by advising a primary care revisit with possible urology consultation. Patient was informed and verbally consented to the use of an ambient scribe for clinic note documentation during this visit. (2) Seasonal allergies: Code(s): J30.2 - Other seasonal allergic rhinitis Plan: - Allergy medication Zyrtec was initiated along with diphenhydramine for symptom relief concerning suspected allergy-related ear congestion. Orders: Orders Urine Culture Today N39.0 - Urinary tract infection, site not specified Medications: New cefuroxime axetil 500 mg PO Q12H 10 tabs 0RF Coding Level of Care Code New Pt Level 4 (18453) Diagnoses Acute cystitis without hematuria N30.00 Urinary tract infection type: acute cystitis Hematuria presence: without hematuria Seasonal allergies J30.2
[2024-10-31 10:58] VITALS: BP 108/70; PULSE 68; TEMP 36.8; O2SAT 98
--- OUTSIDE RECORDS SUMMARY | 2024-10-31 12:43 | XMS_ITS | Continuity of Care Document ---
Author Organization [facility] Address [address] [place] [address]- Care Team Providers Care Strategic Advisor Name Role Phone Genie Moran MD Primary Care Physician [phone] Encounter [facility] [id number] Date(s): 09/25/24 - 10/25/24 [facility] [address] [place] [id number] Attending Physician: Ira Weiss Admitting Physician: AdmtrIra Referring Physician: Admtr ArBere Encounter Type: Triage Allergies, Adverse Reactions, Alerts Substance Criticality Severity [...] 1 Refills, Maintenance, 07/28/23 1:24:00 PM EST, [facility], Partial fill upon [...] Date: 07/26/23 Status: Ordered Repeat number: 1 Carafate Tablet 1 Gm, By Mouth, 3 times a day before meals and bedtime, Maintenance, 06/22/13 4:22:33 PM EST Start Date: 06/22/13 Status: Ordered Repeat number: 1 ferrous fumarate 300 mg oral tablet 1 tablet = 300 mg, By Mouth, Every Wednesday, and Wednesday, # 30 tablet, 0 Refills, Maintenance, 05/09/22 9:00:00 AM EST, Tablet, Partial fill upon patient request if the prescription is for aschedule II opioid drug. Start Date: 05/09/22 Status: Ordered Quantity: 30.0 Unit: tablet Repeat number: 1 letrozole 2.5 mg oral tablet 1 tablet = 2.5 mg, By Mouth, Daily, # 30 tablet, 6 Refills, Maintenance, 09/26/24 11:35:00 AM EDT, Tablet, [id number], Partial fill upon patient request if the prescription is for a schedule IIopioid drug., 165, cm, 09/26/24 11:08:00 EDT, Height, 76.6, kg, 09/26/24 11:08:00 EDT, Dry Weight Start Date: 09/26/24 Stop Date: 04/24/25 Status: Ordered Quantity: 30.0 Unit: tablet Repeat number: 7 omeprazole 40 mg oral enteric coated capsule 1 capsule = 40 mg, By Mouth, 2 times a day, # 60 capsule, 1 Refills, Maintenance, 05/09/22 9:02:00 AM EST, Suspension, [id number], Partial fill upon patient request if the prescription is fora schedule II opioid drug., 164.3, cm, 04/30/22 11:20:00 EST, Height, 62.2, kg, 04/30/22 11:20:00 EST, Dry Weight Start Date: 05/09/22 Status: Ordered Quantity: 60.0 Unit: capsule Repeat number: 2 pantoprazole 40 mg oral delayed release tablet 1 tablet = 40 mg, By Mouth, 2 times a day, # 60 tablet, 3 Refills, Maintenance, 05/01/24 9:42:00 AM EST, CR Tablet, 165, cm, 05/01/24 7:38:00 EST, Height, 58, kg, 05/01/24 7:38:00 EST, Dry Weight Start Date: 05/01/24 Status: Ordered Quantity: 60.0 Unit: tablet Repeat number: 4 Problem List Condition Confirmation Course Effective Dates [...] [facility] Outreach Member Role: PCP Address: [address] [place] [address] [address] Genie Moran MD [place], [place] [address] Telecom: Name: Marianna Kinsey RN Position: [facility] RN Member Role: Primary Care Nurse Name: Esther Blackburn RN Position: [facility] RN Member Role: Primary Care Nurse Name: Tana Schaefer NP Position: [facility] PCO Associate Professional Member Role: Primary Care Nurse Address: [address] [place] [address]- Telecom: Name: Matheus Nieves RN Position: [facility] RN Member Role: Primary Care Nurse Care Team Related Persons Name: CLAUDINE ELIZABETH Name: RACHELLE DELAROSA Insurance Providers Guarantor name: NADYA DELAROSA [employer] Plan Information #: 1 Payer: [employer] [facility] [employer] Payer Identifier: NA Member Number: [id number] Group Number: [id number] Subscriber Identifier: [id number] Relationship to Subscriber: self Coverage Type: Medicare Managed Care (Includes Medicare Advantage Plans) Coverage Verification Date: MELL Telecom: MELL Address: NA
== END 2024-10-31 11:35 | disposition home or self-care (01) ==
PROVIDERS: PCP Internal Medicine; Visit Provider Physician Assistant
DX: N30.00 Acute cystitis without hematuria (principal); J30.2 Other seasonal allergic rhinitis; Z13.9 Encounter for screening, unspecified

== ENCOUNTER 2024-12-14 12:00 | Outpatient (REF) | payer OTHER, SELFPAY ==
--- OUTSIDE RECORDS SUMMARY | 2024-12-12 23:59 | XMS_ITS | Continuity of Care Document ---
Author Organization [facility] Address [address] [place] [address] [address] [place] [address]- Care Team Providers Care Parts Puller Name Role Phone Genie Moran MD Primary Care Physician [phone] [id number]s): 12/05/[facility] - 12/12/24 [facility] [address] [place], [place] [address] Attending Physician: Jorge Staples MD Referring Physician: Shruthi Escamilla MD Encounter Type: Office Visit Allergies, Adverse [...] 1 Refills, Maintenance, 07/28/23 1:24:00 PM EST, [facility], Partial fill upon patient [...] Refills, Maintenance, 09/26/24 11:35:00 AM EDT, Tablet, [id number], Partial fill upon patient request if the [...] Maintenance, 05/09/22 9:02:00 AM EST, Suspension, [id number], Partial fill upon patient request if the [...] of left female breast Confirmed 11/2021 Active Recurrent cancer of left breast Confirmed Active Migraine Confirmed Active Myotomy Confirmed Active Malignant neoplasm of overlapping sites of left breast in female, estrogen receptor positive Confirmed Active Social History Social History Type Response Smoking Status Never smoker entered on: 08/31/13 Sex Sex Representation Female (finding) Note * Taya Rivera MA: PERFORM Event Display: Patient Education/Instruction Authored Date: [id number] Ambulatory Adult Visit Summary [facility] Name: NADYA DELAROSA : 1955?? Visit: 12/05/2024 11:14?? Ambulatory Visit Instructions ?? Your Care Team Primary Care Provider Genie Moran MD? This Visit Provider Jhoan GLASER , Jorge Johnson Vitals Signs Pulse Rate: 78 bpm Height: 165 cm Systolic Blood Pressure: 120 mm Hg Weight: 59.9 kg Diastolic Blood Pressure: 83 mm Hg Body Mass Index: 22 kg/m2 ?? Body surface area: 1.66 What to do next Scheduled Follow-Up Appointments Wednesday 10:00 AM EDT ?? Where: [facility] [address] [place] [address], [address] [place] [address]- Status: Pending Wednesday 9:45 AM EDT ?? Where: [facility] [address], [address] [place] [address]- Status: Pending Wednesday 1:00 PM EDT ?? Where: [facility] Surgical Services Status: Pending Wednesday 11:30 AM EDT ?? With: Buck Devlin MD Where: [facility] [address] [place] [address] Drive [address] [place] [address]- Status: Pending Follow-Up Appointments Follow Up with??Jhoan GLASER, Jorge Johnson When:??Only if needed Where: [address] [place] [address], [address] [facility] [place] [address]- Medications The list below reflects the information in our records and provided by you today along with any changes made during this visit. Please continue your medications until treatment is completed or stopped by your provider. If this is different from the information you have or there are other questions,please contact the prescribing provider. What How Much When Instructions Unchanged Albuterol (Albuterol (Eqv-Ventolin HFA) 90 mcg/ inh inhalation aerosol) 2 puff(s) Inhalation Every 4 hours as needed for Wheezing/Shortness of Breath Unchanged Durable Medical Equipment (1.5kcal/ mL oral supplement TID vanilla) See instructions E44.1- Mild protein-energy malnutrition ?? Unchanged Ferrous Fumarate (ferrous fumarate 300 mg oral tablet) 1 tab(s) Oral Every Wednesday, and Wednesday Unchanged Letrozole (letrozole 2.5 mg oral tablet) 1 tab(s) Oral Daily Duration: 30 Days Unchanged Multivitamin With Minerals (ABC Complete Multiple Vitamins with Minerals oral tablet) 1 tab(s) Oral Daily Unchanged Omeprazole (omeprazole 40 mg oral enteric coated capsule) 1 capsule Oral Twice a day Unchanged Pantoprazole (pantoprazole 40 mg oral delayed release tablet) 1 tab(s) Oral Twice a day Unchanged Sucralfate (Carafate Tablet) 1 gram Oral 3 times a day before meals and bedtime Medications and Immunizations Administered Medications Given During Visit No medications given during this visit.?? Allergies (NKA means No Known Allergies) Other Food Allergy Common Emergency Awareness Tips IS IT A [...] are strongly encouraged to quit. Please call [facility] at [phone] or [phone] ([phone]) or log in to [email or web address] for referrals to smoking cessation programs. ?? The National Suicide Prevention Hotline is available 14/12 if you or someone you know needs to find a reason to keep living. By calling 7-147-254-Arkm[employer] (2674) you'll be connected to a skilled, trained counselor at a crisis center in your area. [facility] You can view and manage your care through the patient portal or by using a health care jorge of your choosing. [employer] is a website that allows you to securely view your medical information including your hospital discharge summary, office visit summaries, medications and follow-up visits. You can also request appointments, renew medications, and request access to your medical information using a health care jorge of your choosing, or just ask a question. You can enroll at [email or web address] or register during your next office visit. [facility], in keeping with [facility] guidance, no longer requires face [...] medical provider or home test kit. ?? Disclaimer: The information provided is of a general nature and is intended to be used in conjunction with the recommendations and advice of your health care practitioner. Every effort has been made to ensure that the information provided is accurate and complete at the time it is provided to you however, as your needs change, or, as new information becomes available, different or additional instructions may be required. ?? If you have questions, please consult with your primary care provider or pharmacist, as appropriate. This information is not intended to serve as substitution for assessment and evaluation by a qualified health care provider. If you do not have a primary care provider, you may find a [facility] provider by calling [facility] at [phone]. Patient Care team information Care Team Personnel Name: Genie Moran MD Position: [facility] Outreach Member Role: PCP Address: [address] [place] [address] [address] Genie Moran MD [place], [place] - Telecom: Name: Marianna Kinsey RN Position: [facility] RN Member Role: Primary Care Nurse Name: Esther Blackburn RN Position: [facility] RN Member Role: Primary Care Nurse Name: Tana Schaefer NP Position: [facility] PCO Associate Professional Member Role: Primary Care Nurse Address: [address] [place] [address] - Telecom: Name: Matheus Nieves RN Position: [facility] RN Member Role: Primary Care Nurse Care Team Related Persons Name: CLAUDINE ELIZABETH Name: RACHELLE DELAROSA Insurance Providers Guarantor name: NADYA ISAURA Health Plan Information #: 1 [facility] Payer Identifier: NA Member Number: [id number] Group Number: [id number] Subscriber Identifier: [id number] Relationship to Subscriber: self Coverage Type: Medicare Managed Care (Includes Medicare Advantage Plans) Coverage Verification Date: NA Telecom: NA Address: NA
--- OUTSIDE RECORDS SUMMARY | 2024-12-13 23:59 | XMS_ITS | Continuity of Care Document ---
Author Organization [facility] Address [address] [place] [address]- Care Team Providers Care Print Binding And Finishing Worker Name Role Phone Luisa GLASER, Genie Timmons Primary [facility] Phys[id number] 11/13/24 - 12/13/24 [facility] [address] [place] [address]- Encounter Type: Triage Allergies, Adverse Reactions, Alerts [...] 1 Refills, Maintenance, 07/28/23 1:24:00 PM EST, [facility], Partial fill upon [...] Maintenance, 09/26/24 11:35:00 AM EDT, Tablet, [id number], Partial fill upon patient request if the [...] Maintenance, 05/09/22 9:02:00 AM EST, Suspension, [id number], Partial fill upon patient request if the [...] Team Personnel Name: Genie Moran MD Position: [facility] Outreach Member Role: PCP Address: [address] [place] [address] [address] [place] [address]- Telecom: Name: Marianna Kinsey RN Position: [facility] RN Member Role: Primary Care Nurse Name: Esther Blackburn RN Position: [facility] RN Member Role: Primary Care Nurse Name: Tana Schaefer NP Position: [facility] PCO Associate Professional Member Role: Primary Care Nurse Address: [address] [place] [address]- Telecom: Name: Matheus Nieves RN Position: [facility] RN Member Role: Primary Care Nurse Care Team Related Persons Name: CLAUDINE ELIZABETH Name: RACHELLE DELAROSA Insurance Providers Guarantor name: NADYA ISAURA Health Plan Information #: 1 P[facility] Payer Identifier: NA Member Number: [id number] Group Number: [id number] Subscriber Identifier: [id number] Relationship to Subscriber: self Coverage Type: Medicare Managed Care (Includes Medicare Advantage Plans) Coverage Verification Date: MELL Telecom: MELL Address: NA
--- OUTSIDE RECORDS SUMMARY | 2024-12-14 12:43 | XMS_ITS | Patient Health Record ---
Author Organization [facility] Address [address] [place] [address] Care Team Providers Care Meter Repair Shop Supervisor Name Role Phone Joshuaconrado Genie Primary Care Provider Unavailab Adis Parson Unavailable [phone] Allergies Allergen (clinical drug ingredient) Drug/Non Drug Allergy documented on EMR Reaction Allergy Type Onset Date Status sunflower seeds (uncoded) Unknown Allergy Active Reason For Referral No Information Medications Medication SIG (Take, Route, Frequency, Duration) Notes [...] Twice a day for 30 days Active Immunizations Vaccine Route Administration Date Status Comme nts Influenza Unknown 10/29/2020 Refused Problems Problem Type SNOMED Code ICD Code Onset Dates Problem Status W/U Status Risk Notes Problem Esophageal stricture (K22.2) Active confirmed Problem 48605691 Iron deficiency anemia due to chronic blood loss (D50.0) Active confirmed Problem 78739635 Erosive esophagitis (K22.10) Active confirmed Problem 56589610 Achalasia (K22.0) Active confirmed Problem 45353114 Esophageal dysphagia (R13.10) Active confirmed Plan Of Treatment Pending Test Test Name Order Date IRON + IBC (FE) 08/16/2012 IRON + IBC (FE) 03/15/2016 FERRITIN 08/16/2012 FERRITIN 03/15/2016 VITAMIN B12 AND FOLATE 08/16/2012 VITAMIN B12 AND FOLATE 03/15/2016 CBC w DIFF 08/16/2012 CBC w DIFF 03/15/2016 CBC w DIFF 10/29/2020 Future Test Test Name Order Date UPPER GI ENDOSCOPY 10/01/2015 UPPER GI ENDOSCOPY 10/29/2020 Insurance Providers Payer Name Payer Address Payer Phone Subscriber Number Group Number Insured Name Patient Relationship to Insured Coverage Start Date Coverage End Date MEDICAID OF [facility] [address] [place] [id number] ISAURA NADYA Self - patient is the insured Medical (General) History Medical History History ICD Code Achalasia-she has had 2 surg eries for the achalasia as described below-had an endoscopy in 2009, at which time she presented with a complete esophageal obstruction relation to food-at that time I spent over one hour cleaning out the esophagus-I did not visualize any mucosal lesions within the esophagus at that time Denies PA,DM,CVA,Lung disease,renal dise ase Anemia, with IV iron infusio ns in April 2012 for a hemoglobin of 6.9. and 2014--had transfusions in 05/2015 and 06/[address] [facility] Kidney stones Broken right hand in 3 [...]
[2024-12-14 13:17] LABS: MANUAL DIFF FLAG NO
[2024-12-14 13:27] LABS: Hematocrit 33.3 % (37.0-47.0); Hemoglobin 9.5 g/dl (12.0-16.0); Imm Gran Abs Auto 0.01 X10*3/uL (0.00-0.03); Imm Gran Pct Auto 0.2 % (0.0-0.4); Lymphocytes Absolute Auto 1.4 X10*3/uL (1.2-4.9); Mean Corpuscular HGB Conc 28.5 g/dl (31.0-35.0); Mean Corpuscular Hemoglobin 20.7 pg (27.0-33.0); Mean Corpuscular Volume 72.4 fL (80.0-98.0); NRBC Abs Auto 0.000 X10*3/uL (0.0-0.012); NRBC Pct Auto 0.0 /100WBC (0.0-0.2); Platelet Count 280 X10*3/uL (160-400); Red Blood Count 4.60 X10*6/uL (4.20-5.50); White Blood Count 6.6 X10*3/uL (4.8-10.8)
[2024-12-14 13:46] LABS: Alanine Aminotransferase < 6 U/L (0-31); Albumin Level 3.3 g/dL (3.5-5.0); Alkaline Phosphatase 144 U/L (39-117); Anion Gap 9 (12-20); Aspartate Amino Transferase 20 U/L (5-31); Blood Urea Nitrogen 11 mg/dL (9-16); Calcium 8.8 mg/dL (8.4-10.2); Carbon Dioxide 29 mmol/L (22-29); Chloride 107 mmol/L (96-108); Estimated Glomerular Filt Rate > 60; Potassium 4.2 mmol/L (3.3-5.1); Sodium 141 mmol/L (135-145); Total Protein 5.8 g/dL (6.5-8.0)
[2024-12-14 14:07] LABS: Ferritin 5 ng/mL (10-250)
[2024-12-14 14:14] LABS: Folate 9.7 ng/mL (> or = 4.0); Vitamin B12 667 pg/mL (200-900)
== END 2024-12-14 12:01 | disposition home or self-care (01) ==
LOC: HO.10HDL 12:00
PROVIDERS: Visit Provider Internal Medicine
DX: B35.1 Tinea unguium (principal); D64.9 Anemia, unspecified; M54.50 Low back pain, unspecified; N30.00 Acute cystitis without hematuria
CPT/HCPCS: 36415; 80053; 82607; 82728; 82746; 85025; 87086

== ENCOUNTER 2024-12-20 09:00 | Outpatient (RCR) | payer OTHER, SELFPAY ==
--- NOTE | 2024-10-20 10:40 | MHC.PT.EP ---
[facility] [place] Office [place] Office [place] Office [address]en [address] [phone] F: [phone] F: [phone] F: [phone] F: [phone] Physical Therapy Plan of Care Date of Evaluation: 10/20/24 Date of Surgery: Diagnosis: bilateral ankle instability Assessment: Patient is a 69 year old R handed female who presents with s/s consistent with bilateral ankle instability. She does not work and is currently being worked up for recurrence of breast cancer. Patient past medical history includes breast reconstruction, PT for shoulder, anemia and asthma. Current impairments include balance, ROM, strength, activity tolerance and functional mobility. Functional limitations include decreased ability to walk, stand, negotiate stairs and be active in standing activities. Patient is motivated with good rehab potential. Skilled PT will address impairments and functional limitations in order to achieve goals. Frequency and Duration: The patient will be seen 2x/week for 5 weeks Short Term Goals: I with HEP - 2 weeks SLB > 10 seconds b/l - 3 weeks Longterm Goals: SLB > 20 seconds b/l - 5 weeks Strength 4/5 grossly in LE - 5 weeks Able to walk/stand without episodes of buckling - 5 weeks Treatment Plan: Modalities to reduce pain, spasms and effusion. Manual therapy to restore motion and function. Therapeutic exercise to improve strength and flexibility. Neuromuscular re-education for posture and balance. Therapeutic activities to return to functional activities of daily living. Electronically signed by: Ash Norton PT Please sign and return to therapist. Thank you for your referral.
--- NOTE | 2025-03-22 12:59 | MHC.PT.DC ---
[facility] [place] Office [place] Office [place] Office [address] Jonas Carm[address] [phone] F: [phone] F: [phone] F: [phone] F: [phone] Physical Therapy Discharge Report Diagnosis: bilateral ankle instability Date of Surgery: Date of Evaluation: 10/20/24 Date of Discharge: 01/01/25 Treatments to Date: 9 Cancellations to Date: No Shows to Date: Discharge Status: Improved Function Independent with HEP Discharge Summary: 12/20/24: pt progressed well with skilled PT. SLB on airex 15 seconds. I with HEP. strength 4/5 grossly. Able to walk/stand without buckling over the course of several weeks. 12/14/24: pt has progressed well in skilled PT. she has 1 more appt then d/c for cancer management and surgery. 11/30/24: pt fatigued today as she maneuvers cancer management and appts. we will attempt to progress NV. 11/16/24: no pain. SLB > 10 seconds. We will taper to 1x/week as pt has increased number of other MD appts. 11/09/24: pt has been feeling better overall with skilled PT. improving strength. reduced discomfort and episodes of stability. 11/03/24: pt is progressing handsomely. no adverse reactions. She has noted less episodes of pain, cracking, and giving out. we have been able to progress steadily thus far. 10/31/24: continuing to progress strength and stability. no adverse reactions and pt reports less pain and episodes of instability since last visit. 10/26/24: pt has been responding well so far. cautious with progression. she has cancer work up tomorrow. 10/24/24: pt progressing well with skilled PT. no adverse reactions. continue to progress as tolerated. Patient is a 69 year old R handed female who presents with s/s consistent with bilateral ankle instability. She does not work and is currently being worked up for recurrence of breast cancer. Patient past medical history includes breast reconstruction, PT for shoulder, anemia and asthma. Current impairments include balance, ROM, strength, activity tolerance and functional mobility. Functional limitations include decreased ability to walk, stand, negotiate stairs and be active in standing activities. Patient is motivated with good rehab potential. Skilled PT will address impairments and functional limitations in order to achieve goals. Electronically signed by: Ash Norton, PT Please sign and return to therapist. Thank you for your referral.
== END 2025-03-22 13:00 | disposition home or self-care (01) ==
LOC: HO.PTCHIC 09:00
PROVIDERS: PCP Internal Medicine; Visit Provider Internal Medicine
DX: M25.373 Other instability, unspecified ankle (principal)
CPT/HCPCS: 97110; 97112; 97162